=== PATIENT | female | born 1955 | race Caucasian/White ===

== ENCOUNTER 2023-08-24 07:42 | Outpatient (OUT) | payer MEDICARE, MEDICAID, SELFPAY ==
--- NOTE | 2023-08-24 | US_ITS ---
The [address] [address] Patient Name: EBONY CHOPRA MRN: [id number] date: 1955 Sex: F Assigned Patient Location: Current Patient Location: [place] Accession/Order Number: [id number] Exam Date: 08/24/2023 08:06 Report Date: 08/24/2023 09:43 At the request of: NON-STAFF PHYSICIAN Procedure: US renal BI EXAM: Renal ultrasound HISTORY: . Recurrent UTI N39.0 . COMPARISON: None. TECHNIQUE: Grayscale and color imaging was performed FINDINGS: Scanning of the right kidney demonstrates right kidney measured 12 x 6.2 x 4.6 cm. Color-flow is noted. No solid renal cortical masses or hydronephrosis is noted. Renal cortical echotexture is unremarkable. Left kidney measures 12 x 5.5 x 6.4 cm. Color-flow is noted. No solid renal cortical masses or hydronephrosis is noted. Renal cortical echotexture is unremarkable. There is a 1.1 x 0.7 cm cyst involving the left kidney. The bladder is grossly unremarkable. US/US renal BI IMPRESSION: 1. Normal right kidney. 2. 1.1 cm simple cyst involving the left kidney. Left kidney is otherwise unremarkable. 3. Normal-appearing bladder. Electronically authenticated by: PRATEEK KERR Date: 08/24/2023 09:43
--- NOTE | 2023-08-24 | XR_ITS ---
The [address] [address] Patient Name: EBONY CHOPRA MRN: [id number] date: 1955 Sex: F Assigned Patient Location: [place] Current Patient Location: [place] Accession/Order Number: [id number] Exam Date: 08/24/2023 08:07 Report Date: 08/24/2023 09:50 At the request of: NON-STAFF PHYSICIAN Procedure: XR abdomen 1V EXAMINATION: XR abdomen 1V HISTORY: recurrent UT N39.0 , chronic; painful urination COMPARISON: No relevant comparison available. FINDINGS: KIDNEY/URETER - RIGHT: No visible renal or ureteral calcifications. KIDNEY/URETER - LEFT: No visible renal or ureteral calcifications. PELVIS: No appreciable ureteral stones. BOWEL: No abnormal dilation or deviation. BONES: No acute abnormality. OTHER: Negative. No abnormal gaseous collections. XR/XR abdomen 1V IMPRESSION: 1. No appreciable urinary tract calculi. Electronically authenticated by: ARTURO LO Date: 08/24/2023 09:50
== END 2023-08-24 07:43 | disposition home or self-care (01) ==
LOC: US 07:49
PROVIDERS: PCP Family Medicine
DX: N39.0 Urinary tract infection, site not specified (principal); N28.1 Cyst of kidney, acquired
CPT/HCPCS: 74018; 76775

== ENCOUNTER 2023-10-23 18:02 | Outpatient (OUT) | payer MEDICARE, SELFPAY ==
--- NOTE | 2023-10-23 | XR_ITS ---
The [address] [address] Patient Name: EBONY CHOPRA MRN: [id number] date: 1955 Sex: F Assigned Patient Location: [facility] Current Patient Location: [facility] Accession/Order Number: [id number] Exam Date: 10/23/2023 18:15 Report Date: 10/23/2023 18:41 At the request of: VICENTE CARDENAS Procedure: XR chest 2V EXAM: XR chest 2V HISTORY: cough COMPARISON: None. TECHNIQUE: Upright PA and lateral chest x-ray FINDINGS: The heart is not enlarged and the vasculature is not distended. No acute infiltrate, effusion or pneumothorax is identified. The osseous structures are grossly intact. XR/XR chest 2V IMPRESSION: No acute infiltrate or evidence of cardiac decompensation. Comparison with a previous study may be helpful in confirming the chronicity of these findings. Electronically authenticated by: HARIS TURNER Date: 10/23/2023 18:41
== END 2023-10-23 18:03 | disposition home or self-care (01) ==
PROVIDERS: PCP Family Medicine; Visit Provider Family Medicine
DX: J06.9 Acute upper respiratory infection, unspecified (principal); E11.51 Type 2 diabetes mellitus with diabetic peripheral angiopathy without gangrene
CPT/HCPCS: 71046

== ENCOUNTER 2024-04-01 09:56 | Outpatient (OUT) | payer OTHER, SELFPAY ==
--- OUTSIDE RECORDS SUMMARY | 2024-04-01 10:13 | XMS_ITS | CCD ---
Author Organization [facility] Care Team Providers Care Physical Therapy Technician Name Role Phone PHYSICIAN, DEFAULT Unavailable Unavailable PHYSICIAN, DEFAULT Unavailable Unavailable PHYSICIAN, DEFAULT Unavailable Unavailable PHYSICIAN, DEFAULT Unavailable Unavailable KASSAVIN, JOHNNY Unavailable Unavailable KEI, ROBI ANNA Unavailable Unavailabl e JOHNNY BROOKS Unavailable Unavailable GARZA, JOSE CHING Unavailable Unavailable RYLEYWES Unavailable Unavailab le ROBI CHOUDHURY ANNA Unavailable Unavailgama GARZA, JOSE Alvarez Primary Care Physician [phone] GREG, DR JOSE Alvarez Admitting Unavailable GARZA, DR JOSE Alvarez Attending Unavailable GARZA, DR JOSE Alvarez Primary Care Unavailable GARZA, DR JOSE Alvarez Consulting Unavailable GARZA, DR JOSE Alvarez Admitting Unavailable GARZA, DR JOSE Alvarez Attending Unavailable GARZA, DR JOSE Alvarez Primary Care Unavailable GARZA, DR JOSE Alvarez Consulting Unavailable GARZA, DR JOSE Alvarez Admitting Unavailable GARZA, DR JOSE Alvarez Attending Unavailable GARZA, DR JOSE Alvarez Primary Care Unavailable GARZA, DR OJSE Alvarez Consulting Unavailable GARZA, DR JOSE Alvarez Admitting Unavailable GARZA, DR JOSE Alvarez Attending Unavailable GARZA, DR JOSE Alvarez Primary Care Unavailable GARZA, DR JOSE Alvarez Primary Care Unavailable HAY, DR HERNANDEZ Admitting Unavailable HAY, DR HERNANDEZ Attending Unavailable ZIEBER, DR ARTURO Navarro Consulting Unavailable HAY, DR HERNANDEZ Consulting Unavailable GARZA, DR JOSE Alvarez Admitting Unavailable GARZA, DR JOSE Alvarez Attending Unavailable GARZA, DR JOSE Alvarez Primary Care Unavailable GARZA, DR JOSE Alvarez Consulting Unavailable GREG, JOSE Alvarez Primary Care Physician [phone] Isra Gaxiola. Primary Care Physician PILI KERR Attending Unavailable KORI GOVEA Attending Unavailable Isra Gaxiola Attending Unavailable Isra Gaxiola Admitting Unavailable Isra Gaxiola Attending Unavailable Isra Gaxiola Admitting Unavailable Isra Gaxiola Attending Unavailable Isra Gaxiola Attending Unavailable Ross, Isra E. Attending Unavailable Ross, Isra E. Attending Unavailable Ross, Isra E. Attending Unavailable Soy, Sunni L Attending Unavailable Soy, Sunni L Admitting Unavailable Ross, Isra E. Attending Unavailable Ross, Isra E. Admitting Unavailable Soy, Sunni L Attending Unavailable Soy, Sunni L Attending Unavailable Ross, Isra E. Attending Unavailable Ross, Isra E. Attending Unavailable Ross, Isra E. Attending Unavailable Ross, Isra E. Attending Unavailable Ross, Sira E. Admitting Unavailable Ross, Isra E. Attending Unavailable Ross, Isra E. Attending Unavailable Ross, Isra E. Admitting Unavailable Ross, Isra E. Attending Unavailable Ross, Isra E. Attending Unavailable Ross, Isra E. Attending Unavailable Ross, Isra E. Attending Unavailable Ross, Isra E. Admitting Unavailable Ross, Isra E. Attending Unavailable Ross, Isra E. Referring Unavailable Troy, Henry D Referring Unavailable Troy, Henry D Attending Unavailable Soy, Sunni L Referring Unavailable Soy, Sunni L Attending Unavailable Soy, Sunni L Admitting Unavailable Troy, Henry D Referring Unavailable Troy, Henry D Attending Unavailable Troy, Henry D Admitting Unavailable Ross, Isra E. Attending Unavailable Ross, Isra E. Attending Unavailable Ross, Isra E. Attending Unavailable RAMIRO KWONG Attending Unavailable Elizabeth Duckworth. Attending Unavailable Minor, Isra E. Referring Unavailable JEFERSONKORI E Attending Unavailable JEFERSONKORI PHELPS E Attending Unavailable Allergies Allergy Classification Reported Allergen(s) Allergy Type Date of Onset Reaction(s) Facility (14 sources) levoFLOXacin; Translations: [levofloxacin] Drug Allergy Unknown (qualifier value) [facility] (15 sources) Penicillin; Translations: [penicillin] Drug Allergy Mycosis (disorder) [facility] (1 source) antibiotics; Translations: [antibiotics] Propensity to adverse reactions (disorder) [facility] Medications Current Medications Medication Drug Class(es) Dates Sig (Normalized) Sig (Original) 0.5 ML semaglutide 2 MG/ML Auto-Injector (2 sources) Start: 02-07-2023 inject 1 mg by subcutaneous injection every week semaglutide 1 mg/0.5 mL (1 mg dose) subcutaneous solution 1 mg, SubCutaneous, qWeek, # 12 EA, Refills(s) 0, [id number], cm, 02/07/23 14:39:00 EDT, Height/Length Dosing, 86.7, kg, 02/07/23 14:39:00 EDT, Weight Dosing Start Date: 02/07/23 Status: Ordered Start: 01-17-2023 inject 1 mg by subcu taneous injection every week semaglutide 1 mg/0.5 mL (1 mg dose) subcutaneous solution 1 mg, SubCutaneous, qWeek, # 12 EA, Refills(s) 0, Pharmacy: [facility]/pharmacy #[id number], 169, cm, 02/16/22 10:52:00 EDT, Height/Length Dosing, 89, kg, 02/16/22 10:52:00 EDT, Weight Dosing Start Date: 01/17/23 Status: Ordered 0.75 ML semaglutide 2.27 MG/ML Auto-Injector (2 sources) Start: 05-17-2023 inject 1.7 mg by subcutaneous injection every week semaglutide 1.7 mg/0.75 mL (1.7 mg dose) subcutaneous solution 1.7 mg, SubCutaneous, qWeek, # 12 EA, Refills(s) 0, Pharmacy: [facility], 169, cm, 05/17/23 11:58:00 EDT, Height/Length Dosing, 84, kg, 05/17/23 11:58:00 EDT, Weight Dosing Start Date: 05/17/23 Status: Ordered 3 ML semaglutide 1.34 MG/ML Pen Injector [Ozempic] (2 sources) Start: 05-08-2023 inject 1 mg by subcutaneous injection every week Ozempic (1 mg dose) 4 mg/3 mL subcutaneous solution 1 mg, SubCutaneous, qWeek, # 1 EA, Refills(s) 1, Pharmacy: [facility]/pharmacy #[id number], 169, cm, 04/24/23 11:22:00 EDT, Height/Length Dosing, 84.2, kg, 04/24/23 11:22:00 EDT, Weight Dosing Start Date: 05/08/23 Status: Ordered 3 ML semaglutide 2.68 MG/ML Pen Injector [Ozempic] (13 sources) Start: 11-29-2023 inject 2 mg by subcutaneous injection every week Ozempic 8 mg/3 mL (2 mg dose) subcutaneous solution 2 mg, SubCutaneous, qWeek, # 4 EA, Refills(s) 3, Pharmacy: [facility], 169, cm, 11/21/23 7:18:00 EST, Height/Length Dosing, 88.1, kg, 11/21/23 7:18:00 EST, Weight Dosing Start Date: 11/29/23 Status: Ordered Start: 11-27-2023 inject 2 mg by subcu taneous injection every week Ozempic 8 mg/3 mL (2 mg dose) subcutaneous solution 2 mg, SubCutaneous, qWeek, # 4 EA, Refills(s) 3, [id number], cm, 11/21/23 7:18:00 EST, Height/Length Dosing, 88.1, kg, 11/21/23 7:18:00 EST, Weight Dosing Start Date: 11/27/23 Status: Ordered Start: 09-26-2023 inject 2 mg by subcu taneous injection every week Ozempic 8 mg/3 mL (2 mg dose) subcutaneous solution 2 mg, SubCutaneous, qWeek, # 4 EA, Refills(s) 3, Pharmacy: [facility], 169, cm, 09/19/23 13:24:00 EST, Height/Length Dosing, 85.6, kg, 09/19/23 13:24:00 EST, Weight Dosing Start Date: 09/26/23 Status: Ordered Start: 09-19-2023 inject 2 mg by subcu taneous injection every week Ozempic 8 mg/3 mL (2 mg dose) subcutaneous solution 2 mg, SubCutaneous, qWeek, # 4 EA, Refills(s) 3, Pharmacy: [facility]/pharmacy #[id number], 169, cm, 09/19/23 13:24:00 EST, Height/Length Dosing, 85.6, kg, 09/19/23 13:24:00 EST, Weight Dosing Start Date: 09/19/23 Status: Ordered Start: 07-19-2023 inject 2 mg by subcu taneous injection every week Ozempic 8 mg/3 mL (2 mg dose) subcutaneous solution 2 mg, SubCutaneous, qWeek, # 4 EA, Refills(s) 3, Pharmacy: [facility]/pharmacy #[id number], 172, cm, 07/19/23 14:27:00 EDT, Height/Length Dosing, 84.1, kg, 07/19/23 14:27:00 EDT, Weight Dosing Start Date: 07/19/23 Status: Ordered Start: 06-12-2023 inject 1.5 mg by sub cutaneous injection every week Ozempic 8 mg/3 mL (2 mg dose) subcutaneous solution 1.5 mg, SubCutaneous, qWeek, # 12 EA, Refills(s) 0, Pharmacy: [facility]/pharmacy #[id number], 172, cm, 06/07/23 12:15:00 EDT, Height/Length Dosing, 83.7, kg, 06/07/23 12:15:00 EDT, Weight Dosing Start Date: 06/12/23 Status: Ordered aspirin 81 mg oral tablet (13 sources) Platelet Aggregation Inhibitor, Nonsteroidal Anti-inflammatory Drug Start: 11-10-2017 take 1 tablet by mouth once daily aspirin 81 mg oral tablet 81 mg = 1 tab(s), Oral, Daily, Refills(s) 0, Blood Thinner Start Date: 11/10/17 Status: Ordered atorvastatin 20 mg oral tablet (13 sources) HMG-CoA Reductase Inhibitor Start: 09-14-2023 take 1 tablet by mouth once daily atorvastatin 20 mg Tab See Instructions, TAKE 1 TABLET BY MOUTH DAILY, # 30 tab(s), Refills(s) 10, Pharmacy: [facility]), 169, cm, 08/22/23 11:17:00 EDT, Height/Length Dosing, 82, kg, 08/22/23 11:17:00 EDT, Weight Dosing Start Date: 09/14/23 Status: Ordered Start: 04-04-2023 take 1 tablet by fauzia th once daily atorvastatin 20 mg Tab 20 mg = 1 tab(s), Oral, Daily, # 90 tab(s), Refills(s) 1, Pharmacy: [facility], 169, cm, 03/20/23 12:01:00 EDT, Height/Length Dosing, 84.6, kg, 03/20/23 12:01:00 EDT, Weight Dosing Start Date: 04/04/23 Status: Ordered Start: 02-16-2022 take 1 mg by mouth once daily atorvastatin 20 mg Tab mg tab(s), Oral, Daily, Refills(s) 0 Start Date: 02/16/22 Status: Ordered azithromycin 250 mg Tab 5-day Dose Pack (Z-Brian) (1 source) Start: 10-23-2023 End: 10-28-2023 azithromycin 250 mg Tab 5-day Dose Pack (Z-Brian) = 1 packet(s), Oral, As Directed, as directed on package labeling, X 5 day(s), # 6 tab(s), Refills(s) 0, [id number] 169, cm, 10/23/23 17:17:00 EST, Height/Length Dosing, 88, kg, 10/23/23 17:17:00 EST, Weight Dosing Start Date: 10/23/23 Stop Date: 10/28/23 Status: Ordered benzonatate 200 mg oral capsule (1 source) Non-narcotic Antitussive Start: 10-23-2023 End: 10-30-2023 take 1 capsule by mouth three times daily benzonatate 200 mg oral capsule 200 mg = 1 cap(s), Oral, TID, X 7 day(s), # 21 cap(s), Refills(s) 0, [id number] 169, cm, 10/23/23 17:17:00 EST, Height/Length Dosing, 88, kg, 10/23/23 17:17:00 EST, Weight Dosing Start Date: 10/23/23 Stop Date: 10/30/23 Status: Ordered budesonide-formoter ol 160 mcg-4.5 mcg/inh Inh Aer w/adapter (4 sources) Start: 11-21-2023 budesonide-formote rol 160 mcg-4.5 mcg/inh Inh Aer w/adapter See Instructions, 10.2 EA, Refill(s) 0, INHALE 2 PUFFS BY MOUTH TWICE A DAY, [id number], 169, cm, 11/21/23 7:18:00 EST, Height/Length Dosing, 88.1, kg, 11/21/23 7:18:00 EST, Weight Dosing Start Date: 11/21/23 Status: Ordered 24 hr buPROPion hydrochloride 150 mg extended release oral tablet (3 sources) Aminoketone Start: 02-20-2024 take 1 tablet by mouth every twenty-four hours Wellbutrin XL 150 mg/24 hours Tab-ER 150 mg = 1 tab(s), Oral, q24hr, # 90 tab(s), Refills(s) 0, Pharmacy: [facility]/pharmacy #[id number], 169, cm, 02/20/24 8:04:00 EDT, Height/Length Dosing, 88.3, kg, 02/20/24 8:04:00 EDT, Weight Dosing Start Date: 02/20/24 Status: Ordered Calcium (13 sources) Phosphate Binder, Calcium Start: 08-09-2015 take 1 tablet by mouth twice daily Calcium 600+D 1 tab, Oral, BID, Refill(s) 0, Prophylaxis Start Date: 08/09/15 Status: Ordered cephalexin 500 mg oral capsule (1 source) Cephalosporin Antibacterial Start: 05-30-2023 take 1 capsule by mouth every twelve hours Keflex 500 mg Cap 500 mg = 1 cap(s), Oral, q12hr, # 10 cap(s), Refills(s) 0, Pharmacy: [facility]/pharmacy #[id number], 169, cm, 05/30/23 17:03:00 EDT, Height/Length Dosing, 94.8, kg, 05/30/23 17:03:00 EDT, Weight Dosing Start Date: 05/30/23 Status: Ordered cetirizine hydrochloride 10 mg oral tablet (8 sources) Histamine-1 Receptor Antagonist Start: 06-07-2023 take 1 tablet by mouth once daily cetirizine 10 mg Tab 10 mg = 1 tab(s), Oral, Daily, # 90 tab(s), Refills(s) 1, Pharmacy: [facility]/pharmacy #[id number], 172, cm, 06/07/23 12:15:00 EDT, Height/Length Dosing, 83.7, kg, 06/07/23 12:15:00 EDT, Weight Dosing Start Date: 06/07/23 Status: Ordered dapagliflozin 5 mg oral tablet (1 source) Sodium-Glucose Cotransporter 2 Inhibitor Start: 02-16-2022 take 1 mg by mouth once daily Farxiga 5 mg oral tablet mg tab(s), Oral, Daily, Refills(s) 0 Start Date: 02/16/22 Status: Ordered Dosoquin (10 sources) Start: 02-14-2019 take 1 tablet by mouth once daily Dosoquin 1 tab, Oral, Daily, Refill(s) 0, Prophylaxis Start Date: 02/14/19 Status: Ordered doxycycline hyclate 100 mg oral tablet (1 source) Tetracycline-class Drug Start: 02-20-2024 End: 02-27-2024 take 1 tablet by mouth every twelve hours doxycycline hyclate 100 mg Tab 100 mg = 1 tab(s), Oral, q12hr, X 7 day(s), # 14 tab(s), Refills(s) 0, Pharmacy: [facility]/pharmacy #[id number], 169, cm, 02/20/24 8:04:00 EDT, Height/Length Dosing, 88.3, kg, 02/20/24 8:04:00 EDT, Weight Dosing Start Date: 02/20/24 Stop Date: 02/27/24 Status: Ordered estradiol 0.1 mg/ml vaginal cream (2 sources) Estrogen Start: 08-22-2023 estradiol 0.1 mg/g Vag Crm 1 gm, Vaginal, As Directed, 42.5 gm, Refill(s) 5, Apply pea-sized amount vaginally at night for 3 weeks, then 3 times a week for maintenance., [facility]/pharmacy #[id number], 169, cm, 08/22/23 11:17:00 EDT, Height/Length Dosing, 82, kg, 08/22/23 11:17:00 EDT, Weight Dosing Start Date: 08/22/23 Status: Ordered fluconazole 150 mg oral tablet (10 sources) Azole Antifungal Start: 11-29-2023 take 1 tablet by mouth once Diflucan 150 mg Tab 150 mg = 1 tab(s), Oral, Once, # 1 tab(s), Refills(s) 1, Pharmacy: [facility]/pharmacy #[id number], 169, cm, 11/29/23 12:59:00 EST, Height/Length Dosing, 88.7, kg, 11/29/23 12:59:00 EST, Weight Dosing Start Date: 11/29/23 Status: Ordered Start: 06-26-2023 take 1 tablet by mouth once Di flucan 150 mg Tab 150 mg = 1 tab(s), Oral, Once, # 1 tab(s), Refills(s) 0, Pharmacy: [facility]/pharmacy #[id number], 172, cm, 06/26/23 18:02:00 EDT, Height/Length Dosing, 84.8, kg, 06/26/23 18:02:00 EDT, Weight Dosing Start Date: 06/26/23 Status: Ordered Start: 05-30-2023 take 1 tablet by mouth once fl uconazole 150 mg Tab See Instructions, TAKE 1 TABLET BY MOUTH FOR A 1 TIME DOSE, # 1 tab(s), Refills(s) 10, [id number] 169, cm, 05/30/23 17:03:00 EDT, Height/Length Dosing, 94.8, kg, 05/30/23 17:03:00 EDT, Weight Dosing Start Date: 05/30/23 Status: Ordered Start: 04-26-2023 take 1 tablet by mouth once fl uconazole 150 mg Tab See Instructions, TAKE 1 TABLET BY MOUTH FOR A 1 TIME DOSE, # 1 tab(s), Refills(s) 10, Pharmacy: [facility]), 169, cm, 04/24/23 11:22:00 EDT, Height/Length Dosing, 84.2, kg, 04/24/23 11:22:00 EDT, Weight Dosing Start Date: 04/26/23 Status: Ordered Freestyle Irma Flash Glucos e Monitoring 14 Day System (Sensor) (11 sources) Start: 12-27-2023 Freestyle Libr e Flash Glucose Monitoring 14 Day System (Sensor) Freestyle Irma Flash Glucose Monitoring 14 Day System (Sensor), See Instructions, 6 EA, 1, Freestyle Irma Flash Glucose Monitoring 14 Day System (Sensor). Replace sensor every 14 days., [facility]/pharmacy #[id number], Supply, 169, cm, 11/29/23 12:59:00 EST, Height/Length Dosing, 88.7, kg, 11/29/23 12:59:00 EST, Weight Dosing Start Date: 12/27/23 Status: Ordered Start: 03-06-2023 Freestyle Libr e Flash Glucose Monitoring 14 Day System (Sensor) Freestyle Irma Flash Glucose Monitoring 14 Day System (Sensor), See Instructions, 6 EA, 1, Freestyle Irma Flash Glucose Monitoring 14 Day System (Sensor). Replace sensor every 14 days., [facility]/pharmacy #[id number], Supply, 169, cm, 03/06/23 13:14:00 EDT, Height/Length Dosing, 85.8, kg, 03/06/23 13:14:00 EDT, Weight Dosing Start Date: 03/06/23 Status: Ordered Start: 03-06-2023 Freestyle Libr e Flash Glucose Monitoring 14 Day System (Sensor) Freestyle Irma Flash Glucose Monitoring 14 Day System (Sensor), See Instructions, 6 EA, 1, Freestyle Irma Flash Glucose Monitoring 14 Day System (Sensor). Replace sensor every 14 days., [facility]/pharmacy #[id number], Supply, 169, cm, 03/06/23 13:14:00 EDT, Hei... Start Date: 03/06/23 Status: Ordered glipiZIDE 10 mg oral tablet (12 sources) Sulfonylurea Start: 09-14-2023 take 1 tablet by mouth twice daily glipiZIDE 10 mg Tab See Instructions, TAKE 1 TABLET BY MOUTH TWICE DAILY, # 60 tab(s), Refills(s) 10, Pharmacy: [facility]), 169, cm, 08/22/23 11:17:00 EDT, Height/Length Dosing, 82, kg, 08/22/23 11:17:00 EDT, Weight Dosing Start Date: 09/14/23 Status: Ordered Start: 04-04-2023 take 1 tablet by fauzia th twice daily glipiZIDE 10 mg Tab 10 mg = 1 tab(s), Oral, BID, # 180 tab(s), Refills(s) 1, Pharmacy: [facility], 169, cm, 03/20/23 12:01:00 EDT, Height/Length Dosing, 84.6, kg, 03/20/23 12:01:00 EDT, Weight Dosing Start Date: 04/04/23 Status: Ordered Start: 02-07-2023 take 1 tablet by fauzia th twice daily glipiZIDE 10 mg Tab 10 mg = 1 tab(s), Oral, BID, # 180 tab(s), Refills(s) 0, Pharmacy: [facility]/pharmacy #[id number], 169, cm, 02/07/23 14:39:00 EDT, Height/Length Dosing, 86.7, kg, 02/07/23 14:39:00 EDT, Weight Dosing Start Date: 02/07/23 Status: Ordered Start: 01-17-2023 take 1 tablet by fauzia twice daily glipiZIDE 5 mg Tab 5 mg, Oral, BID, Refills(s) 0 Start Date: 01/17/23 Status: Ordered glyBURIDE 5 mg oral tablet (1 source) Sulfonylurea Start: 02-14-2019 take 5 mg by mouth once daily glyBURIDE 5 mg, Oral, Daily, Refills(s) 0, High blood sugar Start Date: 02/14/19 Status: Ordered 3 ml insulin degludec 100 unt/ml pen injector (4 sources) Insulin Analog Start: 11-21-2023 inject 30 [IU] by subcutaneous injection once daily Tresiba FlexTouch 100 units/mL subcutaneous solution 30 unit(s), SubCutaneous, Daily, # 15 mL, Refills(s) 2, [id number] 169, cm, 11/21/23 7:18:00 EST, Height/Length Dosing, 88.1, kg, 11/21/23 7:18:00 EST, Weight Dosing Start Date: 11/21/23 Status: Ordered lisinopril 5 mg oral tablet (4 sources) Angiotensin Converting Enzyme Inhibitor Start: 11-29-2023 lisinopril 5 mg Tab 0 Refill(s), Take 1 tablet every day by oral route for 90 days., Refills(s) 0 Start Date: 11/29/23 Status: Ordered metFORMIN hydrochloride 500 mg oral tablet (12 sources) Biguanide Start: 11-15-2023 take 2 tablets by mouth twice daily MetFORMIN (Eqv-Glucophage XR) 500 mg oral tablet, extended release See Instructions, TAKE 2 TABLETS BY MOUTH TWICE A DAY, # 360 tab(s), Refills(s) 2, Pharmacy: [id number], 169, cm, 10/30/23 13:51:00 EST, Height/Length Dosing, 88, kg, 10/23/23 17:17:00 EST, Weight Dosing Start Date: 11/15/23 Status: Ordered Start: 01-19-2023 take 2 tablets by mo [facility] twice daily Glucophage XR 500 mg Tab-ER 1,000 mg = 2 tab(s), Oral, BID, # 390 tab(s), Refills(s) 1, Pharmacy: [facility]/pharmacy #[id number], 169, cm, 02/16/22 10:52:00 EDT, Height/Length Dosing, 89, kg, 02/16/22 10:52:00 EDT, Weight Dosing Start Date: 01/19/23 Status: Ordered Start: 08-04-2013 take 1 tablet by fauzia th twice daily metformin 850 mg Tab 850 mg = 1 tab(s), Oral, BID, Refills(s) 0, Blood glucose Start Date: 08/04/13 Status: Ordered methenamine hippurate 1000 mg oral tablet (1 source) Start: 08-22-2023 End: 02-18-2024 take 1 tablet by mouth twice daily methenamine hippurate 1 g oral tablet 1 gm = 1 tab(s), Oral, BID, X 30 day(s), # 60 tab(s), Refills(s) 5, Pharmacy: [facility]/pharmacy #[id number], 169, cm, 08/22/23 11:17:00 EDT, Height/Length Dosing, 82, kg, 08/22/23 11:17:00 EDT, Weight Dosing Start Date: 08/22/23 Stop Date: 02/18/24 Status: Ordered telmisartan 40 mg oral tablet (13 sources) Angiotensin 2 Receptor Siri Start: 08-16-2023 take 0.5 tablet by mouth once daily telmisartan 40 mg Tab See Instructions, TAKE 1/2 TABLET BY MOUTH DAILY, # 15 tab(s), Refills(s) 10, Pharmacy: [facility] ([facility]), 172, cm, 07/19/23 14:27:00 EDT, Height/Length Dosing, 84.1, kg, 07/19/23 14:27:00 EDT, Weight Dosing Start Date: 08/16/23 Status: Ordered Start: 02-13-2023 take 1 tablet by fauzia once daily telmisartan 40 mg Tab See Instructions, Take one half tab po daily, # 45 tab(s), Refills(s) 1, [facility], cm, 02/07/23 14:39:00 EDT, Height/Length Dosing, 86.7, kg, 02/07/23 14:39:00 EDT, Weight Dosing Start Date: 02/13/23 Status: Ordered Start: 06-15-2018 take 1 tablet by fauzia th once daily telmisartan 20 mg oral tablet 20 mg = 1 tab(s), Oral, Daily, High blood pressure Start Date: 06/15/18 Status: Ordered Tresiba FlexTouch (1 source) Start: 10-23-2023 Tresiba FlexTo uch See Instructions, 25 units daily, Refills(s) 0 Start Date: 10/23/23 Status: Ordered Problems Active Problems Problem Classification Problem Date Documented Date Episodic/Chronic Administrative/social admission (1 source) Counseling procedure with explicit context; Translations: [Dietary counseling and surveillance] Episodic Diabetes mellitus with complications (19 sources) Disorder of nervous system due to diabetes mellitus; Translations: [Type 1 diabetes mellitus with unspecified complications] Onset: 08-19-2022 02-15-2022 Chronic Diabetes mellitus without complication (20 sources) Diabetes mellitus; Translations: [Type 2 diabetes mellitus without complications] Onset: 03-25-2022 06-15-2018 Chronic Comment on above: Linked per outpatien t CDI policy. Disorders of lipid metabolism (20 sources) Hypercholesterolemia; Translations: [Hyperlipidemia] Onset: 02-20-2024 02-15-2022 Chronic Essential hypertension (14 sources) Hypertensive disorder; Translations: [Essential (primary) hypertension] Onset: 03-25-2022 01-24-2014 Chronic Genitourinary symptoms and ill-defined conditions (14 sources) Dysuria; Translations: [Urinary symptoms ] Onset: 02-20-2024 04-24-2023 Episodic Occlusion or stenosis of precerebral arteries (1 source) Occlusion and stenosis of unspecified carotid artery; Translations: [Occlusion and stenosis of unspecified carotid artery] Onset: 09-20-2017 Chronic Osteoarthritis (4 sources) Unilateral primary osteoarthritis, right knee; Translations: [UNI PRIM OSTEOARTHRITIS RT KNEE] Onset: 04-22-2022 Chronic Other connective tissue disease (2 sources) Impingement syndrome of shoulder region 02-15-2022 Episodic Other connective tissue disease (1 source) Impingement syndrome of right shoulder region; Translations: [Impingement syndrome of right shoulder] Episodic Other connective tissue disease (1 source) Biceps tendinitis; Translations: [Bicipital tendinitis, right shoulder] Episodic Other connective tissue disease (1 source) Foot pain 03-12-2024 Episodic Other diseases of veins and lymphatics (13 sources) Venous insufficiency of leg 02-15-2022 Episodic Other endocrine disorders (10 sources) Disorder of adrenal gland; Translations: [Disorder of adrenal gland, unspecified] 02-15-2022 Chronic Other liver diseases (13 sources) Steatosis of liver 02-15-2022 Chronic Other nervous system disorders (1 source) Chronic pain; Translations: [Other chronic pain] Chronic Other nutritional; endocrine; and metabolic disorders (2 sources) Obese class I; Translations: [Body mass index (BMI) 33.0-33.9, adult] Onset: 05-30-2023 Chronic Other nutritional; endocrine; and metabolic disorders (2 sources) Obesity; Translations: [Other obesity due to excess calories] Onset: 05-30-2023 Chronic Other nutritional; endocrine; and metabolic disorders (4 sources) Body mass index 30+ - obesity 11-21-2023 Chronic Other upper respiratory infections (1 source) Acute upper respiratory infection 10-23-2023 Episodic Peripheral and visceral atherosclerosis (20 sources) Atherosclerosis of artery of lower limb; Translations: [Peripheral vascular disease] 02-15-2022 Chronic Prolapse of female genital organs (20 sources) Relaxation of vaginal outlet AND/OR pelvis; Translations: [Uterine prolapse] 11-10-2017 Chronic Residual codes; unclassified (3 sources) Sleep disorder 02-20-2024 Episodic Spondylosis; intervertebral disc disorders; other back problems (20 sources) Cervical radiculopathy; Translations: [Spinal stenosis of lumbar region] 02-15-2022 Episodic Sprains and strains (11 sources) Low back strain; Translations: [Unspecified sprain of right great toe, initial encounter] Onset: 03-25-2022 02-15-2022 Episodic Unclassified (3 sources) CONTACT W/AND (SUSP) EXPOS COVID-19; Translations: [CONTACT W/AND (SUSP) EXPOS COVID-19] Onset: 04-21-2022 Unclassified (7 sources) Pain of right shoulder region 07-19-2023 Urinary tract infections (16 sources) Urinary tract infectious disease; Translations: [Urinary tract infection, site not specified] Onset: 08-17-2022 02-15-2022 Episodic Past or Other Problems Problem Classification Problem Date Documented Date Episodic/Chronic E Codes: Fall (1 source) Unspecified fall, initial encounter; Translations: [UNSPECIFIED FALL INITIAL ENCOUNTER] Onset: 03-25-2022 Episodic Other aftercare (1 source) long-term (current) use of aspirin; Translations: [LONG-TERM CURRENT USE OF ASPIRIN] Onset: 03-25-2022 Episodic Other aftercare (1 source) Other longterm (current) drug therapy; Translations: [OTH MANAGER CORPORATE COMMUNICATIONS CURRENT DRUG THERAPY] Onset: 03-25-2022 Episodic Other aftercare (1 source) long-term (current) use of oral hypoglycemic drugs; Translations: [LONG-TERM USE ORAL HYPOGLYCEMIC DX] Onset: 03-25-2022 Episodic Other connective tissue disease (3 sources) Pain in right toe(s); Translations: [PAIN IN RIGHT TOES] Onset: 03-24-2022 Episodic Other injuries and conditions due to external causes (1 source) Unspecified injury of right foot, initial encounter; Translations: [UNSPECIFIED INJURY RT FOOT INITIAL] Onset: 05-06-2022 Episodic Other nervous system disorders (1 source) Unspecified abnormalities of gait and mobility; Translations: [UNS ABNORMALITIES GAIT AND MOBILITY] Onset: 05-06-2022 Episodic Residual codes; unclassified (1 source) Acquired absence of other specified parts of digestive tract; Translations: [ACQ ABSENCE OTH PART DIGESTV TRACT] Onset: 03-25-2022 Episodic Unclassified (1 source) CONTACT W/AND (SUSP) EXPOS COVID-19; Translations: [CONTACT W/AND (SUSP) EXPOS COVID-19] Onset: 04-18-2022 Results Test Name Value Interpretation Reference Range Facil ity Consultation Noteon 03-18-20 Consultation Note [id number] #1.00TIFF Normal [facility] Ambulatory Visit Summaryon 0 03-12-2024 Ambulatory Visit Summary KARLY CHOPRA :1955 Visit Date:03/12/2024 Ambulatory Visit Instructions Your Diagnosis BMI 31.0-31.9,adult Class 1 obesity due to excess calories in adult Former smoker Your Care Team Attending Physician - Isra Gaxiola MD Primary Care Physician - Isra Gaxiola MD This Is Your Medications List [facility] Prescription (Freestyle Irma Flash Glucose Monitoring 14 Day System (Sensor)) aspirin (aspirin 81 mg oral tablet) atorvastatin (atorvastatin 20 mg Tab) buPROPion (Wellbutrin XL 150 mg/24 hours Tab-ER) budesonide-formotero l (budesonide-formoter ol 160 mcg-4.5 mcg/inh Inh Aer w/adapter) calcium-vitamin D (Calcium 600+D) cetirizine (cetirizine 10 mg Tab) fluconazole (Diflucan 150 mg Tab) glipiZIDE (glipiZIDE 10 mg Tab) insulin degludec (Tresiba FlexTouch 100 units/mL subcutaneous solution) lisinopril (lisinopril 5 mg Tab) metformin (MetFORMIN (Eqv-Glucophage XR) 500 mg oral tablet, extended release) semaglutide (Ozempic 8 mg/3 mL (2 mg dose) subcutaneous solution) semaglutide (Ozempic 8 mg/3 mL (2 mg dose) subcutaneous solution) telmisartan (telmisartan 40 mg Tab) Procedures Performed Colonoscopy (11/13/2018), Anterior and posterior repair (06/29/2018), bladder uplift (06/2018), Angioplasty of artery (12/14/2015), bypass graft right leg, Cyst removal right hand, excision of tumor left leg, Hysterectomy, Laparoscopic cholecystectomy. Discharge Vitals Temperature (Oral) 36.5 ?C Heart Rate (Peripheral) 90 Respiratory Rate 18 Blood Pressure 132/80 Height 169 cm Height 67 in Weight 89.6 kg Weight 197.12 lb BMI 31.37 What to do next Scheduled Follow-Up Appointments Monday 8:45 AM EDT With: Minor THOMAS, Isra Wilkins Where: [facility] [place] Invalid Interpretation Code [address] [place] [address]- \.br\ Monday 11:00 AM EDT \.br\ With: KORI GOVEA PA-C\.br\ Where: [facility] Office/Clini c Noteon 03-12-2024 Family Medicine Office/Clinic Note HPI Staff Brandt is a 68 year old female presenting for acute visit Acute: discomfort right foot Pain characteristics: Pain location: right foot when she walks unbalanced feels like gel when she walks Intensity:no pain Onset: within the last week but been un balanced for 2 years Medication used: nothing History of Present Illness - See staff HPI. - Worsening Review of Systems PHQ Score Initial Depression Screen Score: 0 SCORE Physical Exam Vitals & Measurements T: 36.5 ?C(Oral) HR: 90(Peripheral) RR: 18 BP: 132/80 SpO2: 97% HT: 67 in HT: 169 cm WT: 89.6 kg WT: 197.12 lb BMI: 31.37 General: alert, no acute distress ENMT: oral mucosa moist, Cardiovascular: normal peripheral perfusion Respiratory: respirations non labored Extremities: no deformity, no trauma, Only slightly TTP of the lateral aspect of the R heel. No swelling, erythema noted. No bruising. Sensation is preserved. Neurological: oriented x 4, LOC appropriate for age, CN II-XII intact, motor strength equal & normal bilaterally, speech normal Assessment/Plan 1. Foot pain, right (M79.671: Pain in right foot) - Unsure the cause of this tenderness. - Foot looks normal. - Will send to podiatry - Possibly the start of Neuropathy? Or[place] [facility] [place] 2. BMI 31.0-31.9,adult (Z68.31: Body mass index [BMI] 31.0-31.9, adult) - BMI education give Ordered: Body Mass Index (BMI) documented 3008F Current tobacco non-user 1036F Depression Screening Negative 3352F [facility] [place] Ref[place] Influenza immunization administered or previously received 4274F Most recent diastolic blood pressure 80-89 mm Hg 3079F Spirometry test results demonstrate FEV/FVC > or = 70% or patient does not have COPD 3027F Systolic BP 130-139 mm Hg (Most Recent) 3075F 3. Class 1 obesity due to excess calories in adult (E66.09: Other obesity due to excess calories) - Diet and exercise advised Ordered: Body Mass Index (BMI) documented 3008F Current tobacco non-user 1036F Depression Screening Negative 3352F [facility] [place] Ref[place] Influenza immunization administered or previously received 4274F Most recent diastolic blood pressure 80-89 mm Hg 3079F Spirometry test results demonstrate FEV/FVC > or = 70% or patient does not have COPD 3027F Systolic BP 130-139 mm Hg (Most Recent) 3075F 4. Former smoker (Z87.891: Personal history of nicotine dependence) - Please continue not to smoke Ordered: Body Mass Index (BMI) documented 3008F Current tobacco non-user 1036F Depression Screening Negative 3352F [facility] [place]ulatory Ref[place] Influenza immunization administered or previously received 4274F Most recent diastolic blood pressure 80-89 mm Hg 3079F Spirometry test results demonstrate FEV/FVC > or = 70% or patient does not have COPD 3027F Systolic BP 130-139 mm Hg (Most Recent) 3075F Follow-up No qualifying data available Problem List/Past Medical History Ongoing Atherosclerosis of [place] arteries of extremities with intermittent claudication, right leg BMI 30.0-30.9,adult Cervical radiculopathy Diabetic retinopathy Foot pain, right Frequent UTI Hypercholesterolemia Neurologic disorder associated with diabetes mellitus Peripheral vascular disease Shoulder pain, right Sleep disorder Spinal stenosis of lumbar region Steatosis of liver Type 2 diabetes mellitus with hypercholesterolemia Type 2 diabetes mellitus with peripheral vascular disease Urinary frequency Venous insufficiency of leg Historical Hyperlipemia Hypertension Procedure/Surgical History Colonoscopy (11/13/2018), Anterior and posterior repair (06/29/2018), bladder uplift (06/2018), Angioplasty of artery (12/14/2015), bypass graft right leg, Cyst removal right hand, excision of tumor left leg, Hysterectomy, Laparoscopic cholecystectomy. Medications aspirin 81 mg oral tablet, 81 mg= 1 tab(s), Oral, Daily atorvastatin 20 mg Tab, See Instructions budesonide-formotero l 160 mcg-4.5 mcg/inh Inh Aer w/adapter, See Instructions Calcium 600+D, 1 tab, Oral, BID, Not taking cetirizine 10 mg Tab, 10 mg= 1 tab(s), Oral, Daily, 1 refills Diflucan 150 mg Tab, 150 mg= 1 tab(s), Oral, Once, 1 refills Freestyle Irma Flash Glucose Monitoring 14 Day System (Sensor), See Instructions, 1 refills glipiZIDE 10 mg Tab, See Instructions lisinopril 5 mg Tab MetFORMIN (Eqv-Glucophage XR) 500 mg oral tablet, extended release, See Instructions Ozempic 8 mg/3 mL (2 mg dose) subcutaneous solution, 2 mg, SubCutaneous, qWeek, 3 refills Ozempic 8 mg/3 mL (2 mg dose) subcutaneous solution, 2 mg, SubCutaneous, qWeek, 3 refills telmisartan 40 mg Tab, See Instructions Tresiba FlexTouch 100 units/mL subcutaneous solution, 30 unit(s), SubCutaneous, Daily, 2 refills Wellbutrin XL 150 mg/24 hours Tab-ER, 150 mg= 1 tab(s), Oral, q24hr Allergies Levaquin (Unknown) penicillin (Yeast infection) Social History Alcohol (more content not included)... Normal [facility] Comment on above: Result Comment: Elec tronically Signed By: Minor THOMAS, Isra Montemayor.br\Date and Time Signed: 03/12/24 11:46 EDT Physician Referralon 024 Physician Referral [id number] 1#1.00TIFF [facility] Screenson 02-29-2024 Screens [id number] 1#1.00TIFF [facility] Patient Educationon 02-28-20 Patient Education Caregiving Antibiotic Medicine, Adult Antibiotic medicines are used to treat infections caused by bacteria, such as strep throat and urinary tract infection (UTI). Antibiotic medicines will not work for colds, the flu (influenza), or other illnesses caused by viruses. These medicines work by killing the bacteria that are making you sick. Antibiotics can also have serious side effects. It is important that you take antibiotic medicines safely and only when needed. When do I need to take antibiotics? You may need antibiotics for: ? UTI. ? Strep throat. ? Bacterial sinusitis. ? Meningitis. This infection affects the spinal cord and brain. ? Serious lung infection. You may start antibiotics while your health care provider waits for your results from any tests for possible infection. Tests may include a culture of your throat, urine, blood, or mucus. Your health care provider may change or stop your antibiotic depending on your test results. When are antibiotics not needed? You do not need antibiotics for most common illnesses. These illnesses may be caused by a virus, not by bacteria. You do not need antibiotics for: ? The common cold. ? Influenza. ? Sore throat. ? Discolored mucus. ? Bronchitis. Antibiotics are not always needed for all infections caused by bacteria. Many of these infections clear up without antibiotic treatment. Do not ask for or take antibiotics when they are not necessary. How long should I take my antibiotic? You must take the entire prescription. Continue to take your antibiotic for as long as told by your health care provider. Do not stop taking it even if you start to feel better. If you stop taking it too soon: ? You may start to feel sick again. ? Your infection may become harder to treat. Each course of antibiotics needs a different amount of time to work. Some antibiotic courses last only a few days. Some last about a week to 10 days. In some cases, you may need to take antibiotics for a few weeks to completely treat your infection. What if I miss a dose? Try not to miss any doses of medicine. If you miss a dose, call your health care provider or pharmacist for advice. Sometimes it is okay to take the missed dose as soon as possible. Do not take double or extra doses. What are the risks of taking antibiotics? Antibiotics can cause: ? Allergic reactions. ? Nausea. ? Yeast infections. ? Liver problems. Antibiotics can also cause an infection called Clostridioides difficile (C. difficile or C. diff), which causes severe diarrhea. This infection happens when the antibiotics kill the healthy bacteria in your intestines. This allows C. diff to grow. C. diff needs to be treated right away. Let your health care provider know if: ? You develop diarrhea while taking an antibiotic. ? You develop diarrhea after you stop taking an antibiotic. C. diff infection can start weeks after stopping the antibiotic. Taking an antibiotic also puts you at risk for getting sick in the future with bacteria that do not respond to medicine (antibiotic-resistan t infection). Antibiotics can cause bacteria to change so that if the antibiotic is taken again, the medicine cannot kill the bacteria. These infections can be more serious and, in some cases, life-threatening. Do antibiotics affect control? control pills may not work while you are on antibiotics. If you are taking control pills, continue taking them as usual and use a second form of control, such as a condom, to avoid unwanted . Continue using the second form of control until your health care provider says you can stop. What else should I know about taking antibiotics? It is important for you to take antibiotics exactly as told. Make sure to: ? Take the correct amount of medicine at the same time each day. ? Ask your health care provider: ? How long to wait between doses. ? If your antibiotic should be taken with food. ? If there are any foods, drinks, or medicines that you should avoid while taking your antibiotics. ? If there are any side effects you should be aware of. ? Use only the antibiotics prescribed for you by your health care provider. Do not use antibiotics prescribed for someone else. ? Drink a large glass of water when taking your antibiotics. Drink enough fluid to keep your urine pale yellow. ? Ask your pharmacist for a syringe, cup, or spoon that properly measures your antibiotics. ? Throw away any leftover medicine. Follow these instructions at home: ? Take gduj-qfe-rvgvont and prescription medicines as told by your health care provider. ? Return to your normal activities as told by your health care provider. Ask your health care provider what activities are safe for you. ? Keep all follow-up visits as told by your health care provider. This is important. Contact a health care provider if: ? Your symptoms get worse. (more content not included)... Normal [facility] Urology Office/Clinic Noteon 02-28-2024 Urology Office/Clinic Note Chief Complaint 6 mo f/u w/ KUB and DAVE HPI Staff 6m DX: Recurrent UTI & Frequency *Started on Estrogen Cream & Methenamine 1g BID at time of last encounter. NEG DAVE & KUB 08/24/23 Did see endo 08/2023 Last A1C 10/23/23- 9.2% Did see PCP 02/20/24. c/o burning w/urination. C&S 02/20/24 final report >100,000 cfu/ml Escherichia coli Tx'd with Doxy Dysuria: denies Incomplete bladder emptying: denies Hematuria: denies Frequency: denies Urgency: denies Nocturia: 3x a night Stream: steady Leaking: denies Post void dripping: denies Wearing pads/ Depends: denies Urge incontinence: denies Stress incontinence: denies Incontinence without Sensory Awareness: denies Abdominal pain: denies Flank pain: denies Sexual complaints: _ Review of Systems PHQ Score Initial Depression Screen Score: 0 SCORE no fever, chills, malaise, myalgia. no rash/lesions. no chest pain, palpitations, or SOB. no abdominal pain, nausea, vomiting. no unilateral calf swelling, redness, pain Physical Exam Vitals & Measurements T: 36.7 ?C(Temporal Artery) HR: 82(Peripheral) RR: 16 BP: 136/77 HT: 67 in HT: 169 cm WT: 88.5 kg WT: 194.7 lb BMI: 30.99 General: nontoxic, NAD Mouth: moist mucosa Lungs: normal respiratory effort Cardio: regular rate, good distal perfusion Abdomen: nondistended, no suprapubic distention or tenderness, no CVA tenderness Neurologic: Grossly normal Skin: No rashes or suspicious lesions Assessment/Plan 1. Frequent UTI (N39.0: Urinary tract infection, site not specified) 08/22/23: Pt was on Farxiga at time of last encounter in our office, is no longer taking (as recommended) is now taking Ozempic. Was doing well fall/winter 2021. Then things got bad Spring 2022: saw PCP 03/20 +nitr/leuk -- tx w macrobid x 7d, fluconazole x1 04/24 neg nit/leuk -- tx fluc x 1 05/17 neg 05/25 no UA -- tx fluc x 1 05/30 cx + E Coli -- keflex x 5d 06/26 +nitr/leuk -- macrobid x 7d, fluc x1 A1C 01/17/23- 13.3% A1C 04/24/23- 12.3% A1C 08/02/23- 12.2% Has been referred to endo due to elevated A1C. we discussed connection btwn diabetes and UTIs. improved DM control will definitely help w UTIs and vice versa. PVR at prior OV was 0mL. pt feels like she's emptying fully. we did discuss double void maneuvers to be sure. reiterated importance of OTC UTI preventives. pt to start probiotics, d-mannose, cranberry supplement. start pt on estrogen cream. Reasoning, side effects, risks/benefits discussed. Rx sent to pharmacy. start Methenamine 1g BID. KUB/DAVE neg for stones. TODAY: A1c Nov 04 - 9.2 Saw PCP 02/20/24 for UTI sx, IO UA+, started empiric Doxy and sent for cx which shows 100k E Coli (sensitive). feeling better now. pt states she has had several UTIs since last ov. has been treated by PCP for them, too embarrassed to call here for tx. pt admits she has NOT been taking OTC preventives (says she lost the sheet I gave her last time and was too embarrassed to ask for another one). has NOT been using estrogen cream (says she doesn't remember to use it and doesn't like applying it). has NOT been taking methenamine (filled it and tried a few but says it's a big tablet that gets stuck in her throat). pH today is 5.0 we had an extensive discussion about how UTIs can become more risky/dangerous as you get older and that prevention is chan. we talked about the 3 prevention options. pt is willing to get back on the methenamine. I looked it up and it can be crushed so she will do this. I also reiterated that I need to know about the UTIs. -resume methenamine -call here for UTI sx 2. Urinary frequency (R35.0: Frequency of micturition) 08/22/23: BBSQ 17 but considers bladder control good if sx continue to be bothersome despite lifestyle changes, getting UTIs under control, and getting DM under control then we can consider anticholinergic if pt deems sx bothersome enough to warrant tx TODAY: BBSQ 13 poor control but pt states sx aren't bothersome enough to warrant any tx changes at this time. I also reminded her how important DM control is for both UTI prevention and bladder sx!! Follow-up With When Contact Information KORI GOVEA PA-C, URL Within 6 months [address] [place] [address] [facility] (1) Additional Instructions: Patient Education Antibiotic Medicine, Adult Problem List/Past Medical History Ongoing Atherosclerosis of [place] arteries of extremities with intermittent claudication, right leg BMI 30.0-30.9,adult Cervical radiculopathy Diabetic retinopathy Frequent UTI Hypercholesterolemia Neurologic disorder associated with diabetes mellitus Peripheral vascular disease Shoulder pain, right Sleep disorder Spinal stenosis of lumbar region Steatosis of liver Type 2 diabetes mellitus with hypercholesterolemia Type 2 diabetes mellitus with peripheral vascular disease Urinary frequency Venous insufficiency of leg Historical Hyperlipemi (more content not included)... Normal [facility] Comment on above: Result Comment: Elec tronically Signed By: KORI GOVEA PA-C\.br\Date and Time Signed: 02/28/24 13:04 EDT Ambulatory Visit Summaryon 0 02-27-2024 Ambulatory Visit Summary KARLY CHOPRA :1955 Visit Date:02/27/2024 Ambulatory Visit Instructions Your Diagnosis Frequent UTI Urinary frequency Your Care Team Attending Physician - KORI GOVEA PA-C Primary Care Physician - Isra Gaxiola MD This Is Your Medications List [facility] Prescription (OnShiftyle Irma Flash Glucose Monitoring 14 Day System (Sensor)) aspirin (aspirin 81 mg oral tablet) atorvastatin (atorvastatin 20 mg Tab) buPROPion (Wellbutrin XL 150 mg/24 hours Tab-ER) budesonide-formotero l (budesonide-formoter ol 160 mcg-4.5 mcg/inh Inh Aer w/adapter) calcium-vitamin D (Calcium 600+D) cetirizine (cetirizine 10 mg Tab) fluconazole (Diflucan 150 mg Tab) glipiZIDE (glipiZIDE 10 mg Tab) insulin degludec (Tresiba FlexTouch 100 units/mL subcutaneous solution) lisinopril (lisinopril 5 mg Tab) metformin (MetFORMIN (Eqv-Glucophage XR) 500 mg oral tablet, extended release) semaglutide (Ozempic 8 mg/3 mL (2 mg dose) subcutaneous solution) semaglutide (Ozempic 8 mg/3 mL (2 mg dose) subcutaneous solution) telmisartan (telmisartan 40 mg Tab) Procedures Performed Colonoscopy (11/13/2018), Anterior and posterior repair (06/29/2018), bladder uplift (06/2018), Angioplasty of artery (12/14/2015), bypass graft right leg, Cyst removal right hand, excision of tumor left leg, Hysterectomy, Laparoscopic cholecystectomy. Discharge Vitals Temperature (Temporal Artery) 36.7 ?C Heart Rate (Peripheral) 82 Respiratory Rate 16 Blood Pressure 136/77 Height 169 cm Height 67 in Weight 88.5 kg Weight 194.7 lb BMI 30.99 What to do next Scheduled Follow-Up Appointments Monday 1:00 PM EDT With: Isra Gaxiola MD Where: [facility] [place] Normal [address] [place] [address]- \.br\ Medications\.br\ What How Much When Why Instructions\.br\ Unchanged aspirin (aspirin 81 mg oral tablet) 1 Tablets By Mouth Every day\.br\ Unchanged atorvastatin (atorvastatin 20 mg Tab) See instructions TAKE 1 TABLET BY MOUTH DAILY \.br\ Unchanged budesonide-formoterol (budesonide-formotero l 160 mcg-4.5 mcg/ inh Inh Aer w/ adapter) See instructions INHALE 2 PUFFS BY MOUTH TWICE A DAY \.br\ Unchanged buPROPion (Wellbutrin XL 150 mg/ 24 hours Tab-ER) 1 Tablets By Mouth Every 24 hours Type 2 diabetes mellitus with hypercholesterolemia Type 2 diabetes mellitus with peripheral vascular disease Hypercholesterolemia BMI 30.0-30.9,adult Class 1 obesity due to excess calories in adult Former smoker\.br\ Unchanged calcium-vitamin D (Calcium 600+D) 1 tab By Mouth 2 times a day\.br\ Unchanged cetirizine (cetirizine 10 mg Tab) 1 Tablets By Mouth Every day\.br\ Unchanged fluconazole (Diflucan 150 mg Tab) 1 Tablets By Mouth Once UTI symptoms Type 2 diabetes mellitus with complication BMI 28.0-28.9,adult Over weight\.br\ Unchanged glipiZIDE (glipiZIDE 10 mg Tab) See instructions TAKE 1 TABLET BY MOUTH TWICE DAILY \.br\ Unchanged insulin degludec (Tresiba FlexTouch 100 units/ mL subcutaneous solution) 30 Units Subcutaneous Every day\.br\ Unchanged lisinopril (lisinopril 5 mg Tab) 0 Refill(s), Take 1 tablet every day by oral route for 90 days. \.br\ Unchanged metformin (MetFORMIN (Eqv-Glucophage XR) 500 mg oral tablet, extended release) See instructions TAKE 2 TABLETS BY MOUTH TWICE A DAY \.br\ Unchanged Misc Prescription (Freestyle Irma Flash Glucose Monitoring 14 Day System (Sensor)) See instructions Type 2 diabetes mellitus without complication, without long-term current use of insulin Hypercholesterolemia Chronic fatigue Neurologic disorder associated with diabetes mellitus Peripheral vascular disease Atherosclerosis of [place] arteries of extremities with intermittent claudication, right leg Former smoker BMI 31.0-31.9,adult Freestyle Irma Flash Glucose Monitoring 14 Day System (Sensor). Replace sensor every 14 days. \.br\ Unchanged semaglutide (Ozempic 8 mg/ 3 mL (2 mg dose) subcutaneous solution) 2 Milligram Subcutaneous Every week\.br\ Unchanged semaglutide (Ozempic 8 mg/ 3 mL (2 mg dose) subcutaneous solution) 2 Milligram Subcutaneous Every week\.br\ Unchanged telmisartan (telmisartan 40 mg Tab) See instructions TAKE 1/ 2 TABLET BY MOUTH DAILY \.br\ Allergies\.br\ Levaquin (Unknown)\.br\ penicillin (Yeast infection)\.br\ Problems\.br\ Ongoing - Any problem that you are currently receiving treatment for.\.br\ Atherosclerosis of [place] arteries of extremities with intermittent claudication, right leg\.br\ BMI 30.0-30.9,adult\.br\ Cervical radiculopathy\.br\ Diabetic retinopathy\.br\ Frequent UTI\.br\ Hypercholesterolemia\ .br\ Neurologic disorder associated with diabetes mellitus\.br\ Peripheral vascular disease\.br\ Shoulder pain, right\.br\ Sleep disorder\.br\ Spinal stenosis of lumbar region\.br\ Steatosis of liver\.br\ Type 2 diabetes mellitus with hypercholesterolemia\ .br\ Type 2 diabetes mellitus with peripheral vascular disease\.br\ Urinary frequency\.br\ Venous insufficiency of leg\.br\ Historical - Any problem that you are no longer receiving treatment for.\.br\ Hyperlipemia\.br\ Hypertension\.br\ Patient Survey\.br\ You may receive a survey via text or e-mail asking about your office visit. Please share your experience with us by completing your survey. We appreciate your feedback and thank you for choosing us for your care.\.br\ \.br\ [facility] C Urineon 02-22-2024 Bacteria identified Cx Nom (U) Microbiology PROCEDURE: Urine Culture [R1] SOURCE: U CleanCatch BODY SITE: COLLECTED DATE/TIME: 02/20/2024 08:18 EDT RECEIVED DATE/TIME: 02/20/2024 20:17 EDT START DATE/TIME: 02/20/2024 20:17 EDT FREE TEXT SOURCE: Minor THOMAS, Isra Gaxiola MD, Isra Wilkins FINAL REPORTS Final Report [] Verified Date/Time: 02/22/2024 10:11 EDT >100,000 cfu/ml Escherichia coli SUSCEPTIBILITY RESULTS LEGEND: S=Susceptible, N/R=Not Reported, Blank=Data not available, or drug not advisable or tested, I=Intermediate, ESBL=Extended spectrum beta-lactamase, R=Resistant, TFG=Thymidine-depend ent strain, AMANDO=Beta-lactamase positive, LINNETTE=mcg/m;(mg/L), S*=Predicted susceptible interp, R*=Predicted resistant interp EC Antibiotic LINNETTE Dilutn LINNETTE Interp Amikacin <=16 S Ampicillin <=8 S Ampicillin/ <=8/4 S Sulbactam Aztreonam <=4 S Cefazolin <=2 S Cefepime <=2 S Cefoxitin <=8 S Ceftazidime <=1 S Ceftazidime/ <=8 S Avibactam Ceftriaxone <=1 S Ciprofloxacin <=1 S Ertapenem <=0.5 S Gentamicin <=4 S Levofloxacin <=2 S Meropenem <=1 S Nitrofurantoin <=32 S Piperacillin/ <=16 S Tazobactam Tetracycline <=4 S Tigecycline <=2 S Tobramycin <=4 S Trimethoprim/ <=2/38 S Sulfa Performing Locations R1: This test was performed at: [facility], [address] [place] [address], [id number] , [place], [facility] Comment on above: Performed By: #### [id number] #### [facility] [address] [place] [id number] Insurance Correspondenceon 0 02-22-2024 Insurance Correspondence [id number] [facility] Interdisciplinary Note - Soc ial Workeron 02-21-2024 Interdisciplinary Note - Wool Buyer This SW made a tc to patient today to discuss her positive depression screen. She reports that she feels Dr. Gaxiola has addressed the issues she has been having, that are the reason for her depressive feelings. She is hopeful that once the medication kicks in that things will be a lot better. She denied any needs at this time. SW will remain available. [facility] Ambulatory Visit Summaryon 0 02-20-2024 Ambulatory Visit Summary KARLY CHOPRA :1955 Visit Date:02/20/2024 Ambulatory Visit Instructions Your Diagnosis Type 2 diabetes mellitus with hypercholesterolemia Type 2 diabetes mellitus with peripheral vascular disease Hypercholesterolemia , Pure hypercholesterolemia , unspecified BMI 30.0-30.9,adult Class 1 obesity due to excess calories in adult Former smoker Your Care Team Attending Physician - Isra Gaxiola MD Primary Care Physician - Isra Gaxiola MD This Is Your Medications List [facility] Prescription (InsideTrackstyle Irma Flash Glucose Monitoring 14 Day System (Sensor)) aspirin (aspirin 81 mg oral tablet) atorvastatin (atorvastatin 20 mg Tab) budesonide-formotero l (budesonide-formoter ol 160 mcg-4.5 mcg/inh Inh Aer w/adapter) calcium-vitamin D (Calcium 600+D) cetirizine (cetirizine 10 mg Tab) fluconazole (Diflucan 150 mg Tab) glipiZIDE (glipiZIDE 10 mg Tab) insulin degludec (Tresiba FlexTouch 100 units/mL subcutaneous solution) lisinopril (lisinopril 5 mg Tab) metformin (MetFORMIN (Eqv-Glucophage XR) 500 mg oral tablet, extended release) semaglutide (Ozempic 8 mg/3 mL (2 mg dose) subcutaneous solution) semaglutide (Ozempic 8 mg/3 mL (2 mg dose) subcutaneous solution) telmisartan (telmisartan 40 mg Tab) Procedures Performed Colonoscopy (11/13/2018), Anterior and posterior repair (06/29/2018), bladder uplift (06/2018), Angioplasty of artery (12/14/2015), bypass graft right leg, Cyst removal right hand, excision of tumor left leg, Hysterectomy, Laparoscopic cholecystectomy. Discharge Vitals Temperature (Temporal Artery) 36.4 ?C Heart Rate (Peripheral) 90 Respiratory Rate 16 Blood Pressure 126/78 Height 169 cm Height 67 in Weight 88.3 kg Weight 194.26 lb BMI 30.92 What to do next Scheduled Follow-Up Appointments Monday 9:00 AM EDT With: KORI GOVEA PA-C Where: [facility] Invalid Interpretation Code [address] [place] [address]- \.br\ Monday 11:00 AM EDT \.br\ With:\.br\ Where: [facility] Family Medicine [facility] Family Medicine Office/Clini c Noteon 02-20-2024 Family Medicine Office/Clinic Note HPI Staff Karly is a 68 year old female presenting for 3 month follow up DM, cholesterol Do you have any of the following symptoms? Foot Exam: UTD Eye Exam: UTD Last A1C: Hgb A1C %: 9.2 % High (10/23/23 17:36:00) Hgb A1c POC: 7.1 % (10/23/23 17:29:00) Statin: atorvastatin 20 Patient is here for follow up on hyperlipidemia: Do you have side effects from the medication? no Refill needed?: no Yearly Lipid labs: 08/17/23 Acute thinks she has a UTI, odorous and itchy questions/concerns: can't lose weight and she's depressed phq-[id number] History of Present Illness Pt presents for follow up, however pt is having burning on urination. Patient states her blood sugars have been extremely elevated recently. Patient states that she forgets to take her medicine. Patient is not using any adjuvant memory solution such as alarms. continues to tell her that she needs to take her medicine on a regular basis. Patient's blood sugar this morning was 185. Patient is also very frustrated that she cannot lose weight. Patient is already on Ozempic and still struggling. Patient states that she has no energy. Patient states she wants to sleep most of the day. Patient states that she cannot sleep at night because her mind races. Patient states she is unsure if she snores. Review of Systems PHQ Score Initial Depression Screen Score: 5 SCORE Detailed Depression Screen Score: 12 Total Depression Screen Score: 17 Physical Exam Vitals & Measurements T: 36.4 ?C(Temporal Artery) HR: 90(Peripheral) RR: 16 BP: 126/78 SpO2: 98% HT: 67 in HT: 169 cm WT: 88.3 kg WT: 194.26 lb BMI: 30.92 General: alert, no acute distress ENMT: oral mucosa moist, Cardiovascular: normal peripheral perfusion Respiratory: respirations non labored Extremities: no deformity, no trauma Neurological: oriented x 4, LOC appropriate for age, CN II-XII intact, motor strength equal & normal bilaterally, speech normal Assessment/Plan 1. UTI symptoms (R39.9: Unspecified symptoms and signs involving the genitourinary system) UA is positive. Will treat with Doxy. Will send for culture. 2. Sleep disorder (G47.9: Sleep disorder, unspecified) Will order sleep study. Will also try Wellbutrin to see if this helps with the racing thoughts. Ordered: Sleep Study Baseline 3. Type 2 diabetes mellitus with hypercholesterolemia (E11.69: Type 2 diabetes mellitus with other specified complication) Will have the patient start setting an alarm to take her medication. If patient is still struggling with elevated blood sugars we will adjust meds at that time. Follow-up in 2 weeks. Ordered: buPROPion, 150 mg = 1 tab(s), Oral, q24hr, # 90 tab(s), Refills(s) 0, Pharmacy: [facility]/pharmacy #[id number], 169, cm, 02/20/24 8:04:00 EDT, Height/Length Dosing, 88.3, kg, 02/20/24 8:04:00 EDT, Weight Dosing doxycycline, 100 mg = 1 tab(s), Oral, q12hr, X 7 day(s), # 14 tab(s), Refills(s) 0, [id number], cm, 02/20/24 8:04:00 EDT, Height/Length Dosing, 88.3, kg, 02/20/24 8:04:00 EDT, Weight Dosing Body Mass Index (BMI) documented 3008F Current tobacco non-user 1036F Depression Screening Positive 3354F Influenza immunization administered or previously received 4274F Most recent diastolic blood pressure <80 mm Hg 3078F Patient screen for fall risk: no falls in last year or 1 fall with no injury in last year 1101F Systolic BP <130 mm Hg (Most Recent) 3074F Urine Culture Urnls Dip Stick Auto w/o Microscopy POC 58531 4. Type 2 diabetes mellitus with peripheral vascular disease (E11.51: Type 2 diabetes mellitus with diabetic peripheral angiopathy without gangrene) As above. Ordered: buPROPion, 150 mg = 1 tab(s), Oral, q24hr, # 90 tab(s), Refills(s) 0, [id number] 169, cm, 02/20/24 8:04:00 EDT, Height/Length Dosing, 88.3, kg, 02/20/24 8:04:00 EDT, Weight Dosing doxycycline, 100 mg = 1 tab(s), Oral, q12hr, X 7 day(s), # 14 tab(s), Refills(s) 0, [id number] 169, cm, 02/20/24 8:04:00 EDT, Height/Length Dosing, 88.3, kg, 02/20/24 8:04:00 EDT, Weight Dosing Body Mass Index (BMI) documented 3008F Current tobacco non-user 1036F Depression Screening Positive 3354F Influenza immunization administered or previously received 4274F Most recent diastolic blood pressure <80 mm Hg 3078F Patient screen for fall risk: no falls in last year or 1 fall with no injury in last year 1101F Systolic BP <130 mm Hg (Most Recent) 3074F Urine Culture Urnls Dip Stick Auto w/o Microscopy POC 77728 5. Hypercholesterolemia (E78.00: Pure hypercholesterolemia , unspecified) Continue on statin. Ordered: buPROPion, 150 mg = 1 tab(s), Oral, q24hr, # 90 tab(s), Refills(s) 0, Pharmacy: [facility]/pharmacy #[id number], 169, cm, 02/20/24 8:04:00 EDT, Height/Length Dosing, 88.3, kg, 02/20/24 8:04:00 EDT, Weight Dosing doxycycline, 100 mg = 1 tab(s), Oral, q12hr, X 7 day(s), # 14 tab(s), Refills(s) 0, Pharmacy: [facility]/pharmacy #[id number], 169, cm, 02/20/24 8:04:00 EDT, Hei (more content not included)... Normal [facility] Comment on above: Result Comment: Elec tronically Signed By: Isra Gaxiola MD\.br\Date and Time Signed: 02/20/24 08:34 EDT Ambulatory Visit Summaryon 0 11-29-2023 Ambulatory Visit Summary KARLY CHOPRA :1955 Visit Date:11/29/2023 Ambulatory Visit Instructions Your Diagnosis Frontal sinusitis Nasal congestion BMI 30.0-30.9,adult BMI 28.0-28.9,adult Over weight Type 2 diabetes mellitus with complication UTI symptoms Your Care Team Attending Physician - RAMIOR KWONG CNP Primary Care Physician - Isra Gaxiola MD This Is Your Medications List doxycycline (doxycycline hyclate 100 mg Cap) fluconazole (Diflucan 150 mg Tab) Contact prescribing physician if questions or concerns Misc Prescription (OnShiftyle Irma Flash Glucose Monitoring 14 Day System (Sensor)) aspirin (aspirin 81 mg oral tablet) atorvastatin (atorvastatin 20 mg Tab) budesonide-formotero l (budesonide-formoter ol 160 mcg-4.5 mcg/inh Inh Aer w/adapter) calcium-vitamin D (Calcium 600+D) cetirizine (cetirizine 10 mg Tab) glipiZIDE (glipiZIDE 10 mg Tab) insulin degludec (Tresiba FlexTouch 100 units/mL subcutaneous solution) lisinopril (lisinopril 5 mg Tab) metformin (MetFORMIN (Eqv-Glucophage XR) 500 mg oral tablet, extended release) multivitamin (Dosoquin) semaglutide (Ozempic 8 mg/3 mL (2 mg dose) subcutaneous solution) semaglutide (Ozempic 8 mg/3 mL (2 mg dose) subcutaneous solution) telmisartan (telmisartan 40 mg Tab) Procedures Performed Colonoscopy (11/13/2018), Anterior and posterior repair (06/29/2018), bladder uplift (06/2018), Angioplasty of artery (12/14/2015), bypass graft right leg, Cyst removal right hand, excision of tumor left leg, Hysterectomy, Laparoscopic cholecystectomy. Discharge Vitals Temperature (Temporal Artery) 37.0 ?C Heart Rate (Peripheral) 89 Blood Pressure 140/78 Height 169 cm Height 67 in Weight 88.7 kg Weight 195.14 lb BMI 31.06 What to do next Scheduled Follow-Up Appointments Monday 8:00 AM EDT With: Minor THOMAS, Isra Wilkins Where: [facility] Invalid Interpretation Code [address] [place] [address] [place] [address]- \.br\ Monday 11:00 AM EDT \.br\ With:\.br\ Where: [facility] Medicine Office/Clini c Noteon 11-29-2023 Family Medicine Office/Clinic Note Chief Complaint congestion and cough HPI Staff Dr. Gaxiola patient presents for an acute visit. complaints of chest congestion and cough Onset: Characteristics: fever, dry cough, congestion, ear plugged, chills, and tired. OTC tried: [id number] Covid test:negative I have reviewed and verified the staff HPI to be accurate for this encounter. History of Present Illness 68 year old female patient of Dr. Gaxiola presents today for evaluation of cough and chest congestion starting 7 days ago. Patient reports she has had a fever, chills, cough and her ears have been plugged . She states last PM and this AM she had a headache which she took Tylenol around 2 AM. She is afebrile today in the office at 37. Her blood pressure is slightly elevated at 140/78. She reports she has frequent sinus infections and she had one last month and she was treated with azithromycin. She states she is not sure it cleared 100% at that time. Review of Systems Constitutional: no fever, no chills, no sweats, no weakness Skin: no Jaundice, no rash, no lesions, nopetechiae ENMT: mild ear pain, no sore throat, moderate congestion, no hoarseness Respiratory: no shortness of breath, mild cough, no orthopnea, no wheezing Cardiovascular: no chest pain, no palpitations, no edema Neurologic: no headache, no dizziness, no numbness, no weakness Psychiatric: no sleeping problems, no irritability, no mood swings/depression. Additional ROS info: Except as noted in the above Review of Systems and in the History of Present Illness all other systems have been reviewed and are negative or noncontributory. Physical Exam Vitals & Measurements T: 37.0 ?C(Temporal Artery) HR: 89(Peripheral) BP: 140/78 SpO2: 95% HT: 67 in HT: 169 cm WT: 88.7 kg WT: 195.14 lb BMI: 31.06 General: alert, no acute distress ENMT: TM's clear, oral mucosa moist, yes pharyngeal erythema or exudate; frontal sinus tenderness to palpation. Cardiovascular: regular rate and rhythm, normal peripheral perfusion Respiratory: Lungs CTA, respirations non labored Extremities: no deformity, no trauma Neurological: oriented x 4, LOC appropriate for [facility] normal Assessment/Plan 1. Frontal sinusitis (J32.1: Chronic frontal sinusitis) Encouraged patient to increase fluids Continue to use flonase one spray each nostril daily Discussed nasal sinus rinse- patient declines Start doxycycline 100 mg BID x 14 days f/u as needed Ordered: doxycycline, 100 mg = 1 cap(s), Oral, BID, X 14 day(s), # 28 cap(s), Refills(s) 0, Pharmacy: [facility]/pharmacy #[id number], 169, cm, 11/29/23 12:59:00 EST, Height/Length Dosing, 88.7, kg, 11/29/23 12:59:00 EST, Weight Dosing 2. Nasal congestion (R09.81: Nasal congestion) Encouraged patient to increase fluids Continue to use flonase one spray each nostril daily Discussed nasal sinus rinse- patient declines Start doxycycline 100 mg BID x 14 days f/u as needed Ordered: doxycycline, 100 mg = 1 cap(s), Oral, BID, X 14 day(s), # 28 cap(s), Refills(s) 0, [id number] 169, cm, 11/29/23 12:59:00 EST, Height/Length Dosing, 88.7, kg, 11/29/23 12:59:00 EST, Weight Dosing Rapid COVID POC 73777 3. BMI 30.0-30.9,adult (Z68.30: Body mass index [BMI] 30.0-30.9, adult) Monitor weight at each visit BMI 31.05 Encouraged portion control and daily exercise Over weight (E66.3: Overweight) Ordered: fluconazole, 150 mg = 1 tab(s), Oral, Once, # 1 tab(s), Refills(s) 1, [id number] 169, cm, 11/29/23 12:59:00 EST, Height/Length Dosing, 88.7, kg, 11/29/23 12:59:00 EST, Weight Dosing Type 2 diabetes mellitus with complication (E11.8: Type 2 diabetes mellitus with unspecified complications) Continue glipizide 10 mg BID, Tresiba 30 Units daily, metFORMIN XR 500 mg daily, & Ozempic 2 mg SubCutaneous weekly Ordered: fluconazole, 150 mg = 1 tab(s), Oral, Once, # 1 tab(s), Refills(s) 1, [id number] 169, cm, 11/29/23 12:59:00 EST, Height/Length Dosing, 88.7, kg, 11/29/23 12:59:00 EST, Weight Dosing Follow-up No qualifying data available Patient Education Sinus Infection, Adult, Qqea-iq-Kxmc Problem List/Past Medical History Ongoing Atherosclerosis of [place] arteries of extremities with intermittent claudication, right leg BMI 30.0-30.9,adult Cervical radiculopathy Diabetic retinopathy Hypercholesterolemia Neurologic disorder associated with diabetes mellitus Peripheral vascular disease Shoulder pain, right Spinal stenosis of lumbar region Steatosis of liver Type 2 diabetes mellitus with hypercholesterolemia Type 2 diabetes mellitus with peripheral vascular disease Venous insufficiency of leg Historical Hyperlipemia Hypertension Procedure/Surgical History Colonoscopy (11/13/2018), Anterior and posterior repair (06/29/2018), bladder uplift (06/2018), Angioplasty of artery (12/14/2015), bypass graft right leg, Cyst removal right hand, excision of tumor left leg, Hysterectomy, Laparoscopic ilana (more content not included)... Normal [facility] Comment on above: Result Comment: Elec tronically Signed By: RAMIRO KWONG CNP\Date and Time Signed: 11/29/23 13:52 EST Patient Educationon 11-29-19 Patient Education Infectious Disease Sinus Infection, Adult A sinus infection is soreness and swelling (inflammation) of your sinuses. Sinuses are hollow spaces in the bones around your face. They are located: ? Around your eyes. ? In the middle of your forehead. ? Behind your nose. ? In your cheekbones. Your sinuses and nasal passages are lined with a fluid called mucus. Mucus drains out of your sinuses. Swelling can trap mucus in your sinuses. This lets germs (bacteria, virus, or fungus) grow, which leads to infection. Most of the time, this condition is caused by a virus. What are the causes? ? Allergies. ? Asthma. ? Germs. ? Things that block your nose or sinuses. ? Growths in the nose (nasal polyps). ? Chemicals or irritants in the air. ? A fungus. This is rare. What increases the risk? ? Having a weak body defense system (immune system). ? Doing a lot of swimming or diving. ? Using nasal sprays too much. ? Smoking. What are the signs or symptoms? The main symptoms of this condition are pain and a feeling of pressure around the sinuses. Other symptoms include: ? Stuffy nose (congestion). This may make it hard to breathe through your nose. ? Runny nose (drainage). ? Soreness, swelling, and warmth in the sinuses. ? A cough that may get worse at night. ? Being unable to smell and taste. ? Mucus that collects in the throat or the back of the nose (postnasal drip). This may cause a sore throat or bad breath. ? Being very tired (fatigued). ? A fever. How is this diagnosed? ? Your symptoms. ? Your medical history. ? A physical exam. ? Tests to find out if your condition is short-term (acute) or long-term (chronic). Your doctor may: ? Check your nose for growths (polyps). ? Check your sinuses using a tool that has a light on one end (endoscope). ? Check for allergies or germs. ? Do imaging tests, such as an MRI or CT scan. How is this treated? Treatment for this condition depends on the cause and whether it is short-term or long-term. ? If caused by a virus, your symptoms should go away on their own within 10 days. You may be given medicines to relieve symptoms. They include: ? Medicines that shrink swollen tissue in the nose. ? A spray that treats swelling of the nostrils. ? Rinses that help get rid of thick mucus in your nose (nasal saline washes). ? Medicines that treat allergies (antihistamines). ? Ngcl-rpa-gpeaqrz pain relievers. ? If caused by bacteria, your doctor may wait to see if you will get better without treatment. You may be given antibiotic medicine if you have: ? A very bad infection. ? A weak body defense system. ? If caused by growths in the nose, surgery may be needed. Follow these instructions at home: Medicines ? Take, use, or apply zmen-ets-bumtnxh and prescription medicines only as told by your doctor. These may include nasal sprays. ? If you were prescribed an antibiotic medicine, take it as told by your doctor. Do not stop taking it even if you start to feel better. Hydrate and humidify ? Drink enough water to keep your pee (urine) pale yellow. ? Use a cool mist humidifier to keep the humidity level in your home above 50%. ? Breathe in steam for 10?15 minutes, 3?4 times a day, or as told by your doctor. You can do this in the bathroom while a hot shower is running. ? Try not to spend time in cool or dry air. Rest ? Rest as much as you can. ? Sleep with your head raised (elevated). ? Make sure you get enough sleep each night. General instructions ? Put a warm, moist washcloth on your face 3?4 times a day, or as often as told by your doctor. ? Use nasal saline washes as often as told by your doctor. ? Wash your hands often with soap and water. If you cannot use soap and water, use hand quill picking machine operator. ? Do not smoke. Avoid being around people who are smoking (secondhand smoke). ? Keep all follow-up visits. Contact a doctor if: ? You have a fever. ? Your symptoms get worse. ? Your symptoms do not get better within 10 days. Get help right away if: ? You have a very bad headache. ? You cannot stop vomiting. ? You have very bad pain or swelling around your face or eyes. ? You have trouble seeing. ? You feel confused. ? Your neck is stiff. ? You have trouble breathing. These symptoms may be an emergency. Get help right away. Call 911. ? Do not wait to see if the symptoms will go away. ? Do not drive yourself to the hospital. Summary ? A sinus infection is swelling of your sinuses. Sinuses are hollow spaces in the bones around your face. ? This condition is caused by tissues in your nose that become inflamed or swollen. This traps germs. These can lead to infection. ? If you were prescribed an antibiotic medicine, take it as told by your doctor. Do not stop taking it even if you start to feel better. ? Keep all follow-up visits (more content not included)... Normal [facility] Ambulatory Visit Summaryon 0 11-21-2023 Ambulatory Visit Summary KEYSHAKARLY Gabriela :1955 Visit Date:11/21/2023 Ambulatory Visit Instructions Your Diagnosis Type 2 diabetes mellitus with hypercholesterolemia Type 2 diabetes mellitus with peripheral vascular disease Pure hypercholesterolemia , unspecified Disorder of adrenal gland Shoulder pain, right Immunization due BMI 30.0-30.9,adult Your Care Team Attending Physician - Isra Gaxiola MD Primary Care Physician - Isra Gaxiola MD This Is Your Medications List insulin degludec (Tresiba FlexTouch 100 units/mL subcutaneous solution) Contact prescribing physician if questions or concerns Misc Prescription (InsideTrackstyle Irma Flash Glucose Monitoring 14 Day System (Sensor)) aspirin (aspirin 81 mg oral tablet) atorvastatin (atorvastatin 20 mg Tab) budesonide-formotero l (Symbicort 160/4.5 inhalation aerosol with adapter) calcium-vitamin D (Calcium 600+D) cetirizine (cetirizine 10 mg Tab) fluconazole (Diflucan 150 mg Tab) glipiZIDE (glipiZIDE 10 mg Tab) metformin (MetFORMIN (Eqv-Glucophage XR) 500 mg oral tablet, extended release) multivitamin (Dosoquin) semaglutide (Ozempic 8 mg/3 mL (2 mg dose) subcutaneous solution) telmisartan (telmisartan 40 mg Tab) [Image Removed: STOP]Stop taking these medications semaglutide (Ozempic 8 mg/3 mL (2 mg dose) subcutaneous solution) Procedures Performed Colonoscopy (11/13/2018), Anterior and posterior repair (06/29/2018), bladder uplift (06/2018), Angioplasty of artery (12/14/2015), bypass graft right leg, Cyst removal right hand, excision of tumor left leg, Hysterectomy, Laparoscopic cholecystectomy. Discharge Vitals Temperature (Oral) 36.7 ?C Heart Rate (Peripheral) 84 Respiratory Rate 16 Blood Pressure 134/76 Height 169 cm Height 67 in Weight 88.1 kg Weight 193.82 lb BMI 30.85 What to do next Scheduled Follow-Up Appointments Monday 8:00 AM EDT With: Minor THOMAS, Isra Wilkins Where: [facility] Invalid Interpretation Code [address] [place] [address]- \.br\ Monday 11:00 AM EDT \.br\ With:\.br\ Where: [facility] Consent for Flu Vaccineon Consent for Flu Vaccine [id number]# 1.00TIFF Normal [facility] Medicine Office/Clini c Noteon 11-21-2023 Family Medicine Office/Clinic Note HPI Staff Karly is a 68 year old female presenting for 2 month follow up DM Do you have any of the following symptoms? Foot Exam: UTD Eye Exam: UTD Hgb A1C %: 9.2 % High (10/23/23 17:36:00) Hgb A1c POC: 7.1 % (10/23/23 17:29:00) Statin: atorvastatin 20 flu: wants one today questions/concerns: questions what her A1C will need to be to get her shoulder surgery done History of Present Illness - Pt is wondering how low her A1c should be for surgery. - Seeing Endo tomorrow - BS is 150 this morning - Wants surgery with her shoulder. Review of Systems PHQ Score Initial Depression Screen Score: 0 SCORE Physical Exam Vitals & Measurements T: 36.7 ?C(Oral) HR: 84(Peripheral) RR: 16 BP: 134/76 SpO2: 98% HT: 67 in HT: 169 cm WT: 88.1 kg WT: 193.82 lb BMI: 30.85 General: alert, no acute distress ENMT: oral mucosa moist, Cardiovascular: regular rate and rhythm, normal peripheral perfusion Respiratory: Lungs CTA, respirations non labored Extremities: no deformity, no trauma Neurological: oriented x 4, LOC appropriate for age, CN II-XII intact, motor strength equal & normal bilaterally, speech normal Abdomen: Soft, Nontender, Non-distended, + BS Assessment/Plan 1. Type 2 diabetes mellitus with hypercholesterolemia (E11.69: Type 2 diabetes mellitus with other specified complication) - Will increase Tresiba to 30 units daily. - Monitor food intake - Will follow recommendations with Endo - Please let us know what they change you to 2. Type 2 diabetes mellitus with peripheral vascular disease (E11.51: Type 2 diabetes mellitus with diabetic peripheral angiopathy without gangrene) - As above 3. Pure hypercholesterolemia , unspecified (E78.00: Pure hypercholesterolemia , unspecified) - Continue on Lipitor - Follow up in 3 months 4. Disorder of adrenal gland (E27.9: Disorder of adrenal gland, unspecified) - Pt does not know what this is in referrence to - Will remove 5. Shoulder pain, right (M25.511: Pain in right shoulder) - Pt to follow up with Ortho. 6. Immunization due (Z23: Encounter for immunization) - Flu shot given Ordered: influenza virus vaccine, inactivated, 0.5 mL, Injection, IntraMuscular, Once, Stop date 11/21/23 8:00:00 EST, Routine, Start date 11/21/23 8:00:00 EST FIRST VACCINE w/o Proration Clerk Admin Charge [id number] 7. BMI 30.0-30.9,adult (Z68.30: Body mass index [BMI] 30.0-30.9, adult) BMI education given Orders: insulin degludec, 30 unit(s), SubCutaneous, Daily, # 15 mL, Refills(s) 2, Pharmacy: [facility]/pharmacy #[id number], 169, cm, 11/21/23 7:18:00 EST, Height/Length Dosing, 88.1, kg, 11/21/23 7:18:00 EST, Weight Dosing Follow-up No qualifying data available Patient Education BMI for Adults Problem List/Past Medical History Ongoing Atherosclerosis of [place] arteries of extremities with intermittent claudication, right leg BMI 30.0-30.9,adult Cervical radiculopathy Diabetic retinopathy Hypercholesterolemia Neurologic disorder associated with diabetes mellitus Peripheral vascular disease Shoulder pain, right Spinal stenosis of lumbar region Steatosis of liver Type 2 diabetes mellitus with hypercholesterolemia Type 2 diabetes mellitus with peripheral vascular disease Venous insufficiency of leg Historical Hyperlipemia Hypertension Procedure/Surgical History Colonoscopy (11/13/2018), Anterior and posterior repair (06/29/2018), bladder uplift (06/2018), Angioplasty of artery (12/14/2015), bypass graft right leg, Cyst removal right hand, excision of tumor left leg, Hysterectomy, Laparoscopic cholecystectomy. Medications aspirin 81 mg oral tablet, 81 mg= 1 tab(s), Oral, Daily atorvastatin 20 mg Tab, See Instructions Calcium 600+D, 1 tab, Oral, BID cetirizine 10 mg Tab, 10 mg= 1 tab(s), Oral, Daily, 1 refills Diflucan 150 mg Tab, 150 mg= 1 tab(s), Oral, Once Dosoquin, 1 tab, Oral, Daily Freestyle Irma Flash Glucose Monitoring 14 Day System (Sensor), See Instructions, 1 refills glipiZIDE 10 mg Tab, See Instructions MetFORMIN (Eqv-Glucophage XR) 500 mg oral tablet, extended release, See Instructions Ozempic 8 mg/3 mL (2 mg dose) subcutaneous solution, 2 mg, SubCutaneous, qWeek, 3 refills Symbicort 160/4.5 inhalation aerosol with adapter, 2 puff(s), Inhalation, BID, Self Directed telmisartan 40 mg Tab, See Instructions Tresiba FlexTouch 100 units/mL subcutaneous solution, 30 unit(s), SubCutaneous, Daily, 2 refills Allergies Levaquin (Unknown) penicillin (Yeast infection) Social History Alcohol - Denies Alcohol Use, 08/04/2013 Household alcohol concerns: No., 05/17/2023 Substance Abuse - Denies Substance Abuse, 08/04/2013 Tobacco - Denies Tobacco Use, 06/15/2018 Former smoker, quit more than 30 days ago Tobacco Use:. Never Smokeless Tobacco Use:. Cigarettes, Started age 16.0 Years. Stopped age 63 Years. Household tobacco concerns: No. Yes, 11/21/2023 Family History Congenital heart disease: Mother and Father. Diabetes melli (more content not included)... Normal [facility] Comment on above: Result Comment: Elec tronically Signed By: Minor THOMAS, Isra Montemayor.br\Date and Time Signed: 11/21/23 07:45 EST Patient Educationon 11-21-19 Patient Education Nutrition BMI for Adults What is BMI? Body mass index (BMI) is a number that is calculated from a person's weight and height. BMI can help estimate how much of a person's weight is composed of fat. BMI does not measure body fat directly. Rather, it is an alternative to procedures that directly measure body fat, which can be difficult and expensive. BMI can help identify people who may be at higher risk for certain medical problems. What are BMI measurements used for? BMI is used as a screening tool to identify possible weight problems. It helps determine whether a person is obese, overweight, a healthy weight, or underweight. BMI is useful for: ? Identifying a weight problem that may be related to a medical condition or may increase the risk for medical problems. ? Promoting changes, such as changes in diet and exercise, to help reach a healthy weight. BMI screening can be repeated to see if these changes are working. How is BMI calculated? BMI involves measuring your weight in relation to your height. Both height and weight are measured, and the BMI is calculated from those numbers. This can be done either in [place] or metric measurements. Note that charts and online BMI calculators are available to help you find your BMI quickly and easily without having to do these calculations yourself. To calculate your BMI in [place] measurements: 1. Measure your weight in pounds (lb). 2. Multiply the number of pounds by 703. ? For example, for a person who weighs 180 lb, multiply that number by 703, which equals 126,540. 3. Measure your height in inches. Then multiply that number by itself to get a measurement called inches squared. ? For example, for a person who is 70 inches tall, the inches squared measurement is 70 inches x 70 inches, which equals 4,900 inches squared. 4. Divide the total from step 2 (number of lb x 703) by the total from step 3 (inches squared): 126,540 ? 4,900 = 25.8. This is your BMI. To calculate your BMI in metric measurements: 1. Measure your weight in kilograms (kg). 2. Measure your height in meters (m). Then multiply that number by itself to get a measurement called meters squared. ? For example, for a person who is 1.75 m tall, the meters squared measurement is 1.75 m x 1.75 m, which is equal to 3.1 meters squared. 3. Divide the number of kilograms (your weight) by the meters squared number. In this example: 70 ? 3.1 = 22.6. This is your BMI. What do the results mean? BMI charts are used to identify whether you are underweight, normal weight, overweight, or obese. The following guidelines will be used: ? Underweight: BMI less than 18.5. ? Normal weight: BMI between 18.5 and 24.9. ? Overweight: BMI between 25 and 29.9. ? Obese: BMI of 30 or above. Keep these notes in mind: ? Weight includes both fat and muscle, so someone with a muscular build, such as an athlete, may have a BMI that is higher than 24.9. In cases like these, BMI is not an accurate measure of body fat. ? To determine if excess body fat is the cause of a BMI of 25 or higher, further assessments may need to be done by a health care provider. ? BMI is usually interpreted in the same way for men and women. Where to find more information For more information about BMI, including tools to quickly calculate your BMI, go to these websites: ? Centers for Disease Control and Prevention: www.cdc.gov ? [place] Heart Association: www.heart.org ? National Heart, Lung, and Blood [place]: www.nhlbi.nih.gov Summary ? Body mass index (BMI) is a number that is calculated from a person's weight and height. ? BMI may help estimate how much of a person's weight is composed of fat. BMI can help identify those who may be at higher risk for certain medical problems. ? BMI can be measured using [place] measurements or metric measurements. ? BMI charts are used to identify whether you are underweight, normal weight, overweight, or obese. This information is not intended to replace advice given to you by your health care provider. Make sure you discuss any questions you have with your health care provider. Document Revised: 07/22/2020 Document Reviewed: 05/29/2020 [email or web address] Patient Education ? 2022 [employer]. [facility] RAD - MISCon 10-31-2023 [place] - [facility] [place] [id number] #1.00TIFF [facility] Ambulatory Visit Summaryon 1 12-31-2022 Ambulatory Visit Summary KEYSHAKARLY Gabriela :1955 Visit Date:10/30/2023 Ambulatory Visit Instructions Your Diagnosis Acute URI Your Care Team Attending Physician - Isra Gaxiola MD Primary Care Physician - Isra Gaxiola MD This Is Your Medications List [facility] Prescription (Appifier Irma Flash Glucose Monitoring 14 Day System (Sensor)) aspirin (aspirin 81 mg oral tablet) atorvastatin (atorvastatin 20 mg Tab) benzonatate (benzonatate 200 mg oral capsule) calcium-vitamin D (Calcium 600+D) cetirizine (cetirizine 10 mg Tab) estradiol topical (estradiol 0.1 mg/g Vag Crm) fluconazole (Diflucan 150 mg Tab) glipiZIDE (glipiZIDE 10 mg Tab) insulin degludec (Tresiba FlexTouch) metformin (Glucophage XR 500 mg Tab-ER) multivitamin (Dosoquin) semaglutide (Ozempic 8 mg/3 mL (2 mg dose) subcutaneous solution) semaglutide (Ozempic 8 mg/3 mL (2 mg dose) subcutaneous solution) telmisartan (telmisartan 40 mg Tab) Procedures Performed Colonoscopy (11/13/2018), Anterior and posterior repair (06/29/2018), bladder uplift (06/2018), Angioplasty of artery (12/14/2015), bypass graft right leg, Cyst removal right hand, excision of tumor left leg, Hysterectomy, Laparoscopic cholecystectomy. Discharge Vitals Heart Rate (Peripheral) 81 Blood Pressure 132/78 Height 169 cm Height 67 in What to do next Scheduled Follow-Up Appointments Monday 7:15 AM EST With: Minor THOMAS, Isra Wilkins Where: [facility] Invalid Interpretation Code [address] [place] [address] [place] [address]- \.br\ Monday 11:00 AM EDT \.br\ With:\.br\ Where: [facility] Office/Clini c Noteon 10-30-2023 [facility] Office/Clinic Note HPI Staff Karly is a 68 year old female presenting for a one week follow up IAN rxed zpak, tessalon and chest xray ordered states feeling somewhat better History of Present Illness - Reviewed CXR - Pt still has cough - Improved - Now is sick Physical Exam Vitals & Measurements HR: 81(Peripheral) BP: 132/78 SpO2: 96% HT: 67 in HT: 169 cm General: alert, no acute distress ENMT: oral mucosa moist, Cardiovascular: regular rate and rhythm, normal peripheral perfusion Respiratory: Lungs CTA, respirations non labored Extremities: no deformity, no trauma Neurological: oriented x 4, LOC appropriate for age, CN II-XII intact, motor strength equal & normal bilaterally, speech normal Abdomen: Soft, Nontender, Non-distended, + BS Assessment/Plan 1. Acute URI (J06.9: Acute upper respiratory infection, unspecified) - Will do Symbicort since I do not want to do steroids - Follow up PRN 2. Cough (R05.9: Cough, unspecified) - As above Orders: budesonide-formotero l, 2 puff(s), Inhalation, BID, 1 EA, Refill(s) 0, [id number], 169, cm, 10/30/23 13:51:00 EST, Height/Length Dosing, 88, kg, 10/23/23 17:17:00 EST, Weight Dosing Follow-up No qualifying data available Problem List/Past Medical History Ongoing Acute URI Atherosclerosis of [place] arteries of extremities with intermittent claudication, right leg Cervical radiculopathy Cough Diabetic retinopathy Disorder of adrenal gland Dysuria Hypercholesterolemia Lumbar strain Neurologic disorder associated with diabetes mellitus Peripheral vascular disease Recurrent UTI Shoulder pain, right Spinal stenosis of lumbar region Steatosis of liver Type 2 diabetes mellitus with hypercholesterolemia Type 2 diabetes mellitus with peripheral vascular disease Urinary frequency Venous insufficiency of leg Historical Hyperlipemia Hypertension Procedure/Surgical History Colonoscopy (11/13/2018), Anterior and posterior repair (06/29/2018), bladder uplift (06/2018), Angioplasty of artery (12/14/2015), bypass graft right leg, Cyst removal right hand, excision of tumor left leg, Hysterectomy, Laparoscopic cholecystectomy. Medications aspirin 81 mg oral tablet, 81 mg= 1 tab(s), Oral, Daily atorvastatin 20 mg Tab, See Instructions benzonatate 200 mg oral capsule, 200 mg= 1 cap(s), Oral, TID Calcium 600+D, 1 tab, Oral, BID cetirizine 10 mg Tab, 10 mg= 1 tab(s), Oral, Daily, 1 refills Diflucan 150 mg Tab, 150 mg= 1 tab(s), Oral, Once Dosoquin, 1 tab, Oral, Daily Freestyle Irma Flash Glucose Monitoring 14 Day System (Sensor), See Instructions, 1 refills glipiZIDE 10 mg Tab, See Instructions Glucophage XR 500 mg Tab-ER, 1000 mg= 2 tab(s), Oral, BID, 1 refills Ozempic 8 mg/3 mL (2 mg dose) subcutaneous solution, 2 mg, SubCutaneous, qWeek, 3 refills Ozempic 8 mg/3 mL (2 mg dose) subcutaneous solution, 2 mg, SubCutaneous, qWeek, 3 refills Symbicort 160/4.5 inhalation aerosol with adapter, 2 puff(s), Inhalation, BID telmisartan 40 mg Tab, See Instructions Tresiba FlexTouch, See Instructions Allergies Levaquin (Unknown) penicillin (Yeast infection) Social History Alcohol - Denies Alcohol Use, 08/04/2013 Household alcohol concerns: No., 05/17/2023 Substance Abuse - Denies Substance Abuse, 08/04/2013 Tobacco - Denies Tobacco Use, 06/15/2018 Former smoker, quit more than 30 days ago Tobacco Use:. Never Smokeless Tobacco Use:. Cigarettes, Started age 16.0 Years. Stopped age 63 Years. Household tobacco concerns: No. Yes, 10/30/2023 Family History Congenital heart disease: Mother and Father. Diabetes mellitus: Father. Immunizations Vaccine Date Status Comments influenza virus vaccine, inactivated - Not Given Patient Refuses SARS-CoV-2 (COVID-19) [id number] 10/31/2022 Recorded influenza virus vaccine, inactivated 10/11/2022 Recorded SARS-CoV-2 (COVID-19) mRNA BNT-162b2 vax 10/19/2021 Recorded influenza virus vaccine, inactivated 09/10/2021 Recorded SARS-CoV-2 (COVID-19) mRNA BNT-162b2 vax 02/12/2021 Given Prophylaxis SARS-CoV-2 (COVID-19) mRNA BNT-162b2 vax 01/22/2021 Given Prophylaxis influenza virus vaccine, inactivated 09/09/2020 Recorded influenza virus vaccine, inactivated 11/15/2019 Recorded influenza virus vaccine, inactivated 09/17/2013 Recorded Normal [facility] Comment on above: Result Comment: Elec tronically Signed By: Isra Gaxiola MD\.br\Date and Time Signed: 10/30/23 14:34 EST [id number] 10-25-2023 HbA1c (Bld) [Mass fraction] 9.2 % High <=5.9 [facility] Comment on above: Performed By: #### [id number] #### [facility] [address] [place] [address] Ambulatory Visit Summaryon 1 12-24-2022 Ambulatory Visit Summary KARLY CHOPRA :1955 Visit Date:10/23/2023 Ambulatory Visit Instructions Your Diagnosis Type 2 diabetes mellitus with peripheral vascular disease Acute URI Tests Performed XR Chest 2 Views -- Results Pending -- Please visit your patient portal for your results or contact your primary care physician. Your Care Team Attending Physician - Isra Gaxiola MD Primary Care Physician - Isra Gaxiola MD This Is Your Medications List [facility] Prescription (Freestyle Irma Flash Glucose Monitoring 14 Day System (Sensor)) aspirin (aspirin 81 mg oral tablet) atorvastatin (atorvastatin 20 mg Tab) calcium-vitamin D (Calcium 600+D) cetirizine (cetirizine 10 mg Tab) estradiol topical (estradiol 0.1 mg/g Vag Crm) fluconazole (Diflucan 150 mg Tab) glipiZIDE (glipiZIDE 10 mg Tab) insulin degludec (Tresiba FlexTouch) metformin (Glucophage XR 500 mg Tab-ER) multivitamin (Dosoquin) semaglutide (Ozempic 8 mg/3 mL (2 mg dose) subcutaneous solution) semaglutide (Ozempic 8 mg/3 mL (2 mg dose) subcutaneous solution) telmisartan (telmisartan 40 mg Tab) Procedures Performed Colonoscopy (11/13/2018), Anterior and posterior repair (06/29/2018), bladder uplift (06/2018), Angioplasty of artery (12/14/2015), bypass graft right leg, Cyst removal right hand, excision of tumor left leg, Hysterectomy, Laparoscopic cholecystectomy. Discharge Vitals Temperature (Temporal Artery) 37.2 ?C Heart Rate (Peripheral) 88 Respiratory Rate 16 Blood Pressure 136/80 Height 169 cm Height 67 in Weight 88.0 kg Weight 193.6 lb BMI 30.81 What to do next Scheduled Follow-Up Appointments Monday 2:00 PM EST With: Minor THOMAS, Isra Wilkins Where: [facility] [place] Invalid Interpretation Code [address] [place] [address]- \.br\ Monday 9:00 AM EDT \.br\ With: KORI GOVEA PA-C\.br\ Where: [facility] Family Medicine Office/Clini c Noteon 10-23-2023 Family Medicine Office/Clinic Note HPI Staff Karly is a 68 year old female presenting for acute visit Acute: ear, congestions, cough needs poc A1C _Respiratory C/O: Duration: week ago Body aches: yes Chest congestion: yes Chills: yes Cough: yes Ear complaints: yes tickle Eye itching/watering: yes Fever: no Headache: no Nasal congestion: yes Nasal discharge: yes Poor appetite: no Reduced activity: yes Sinus pain/pressure: yes Sneezing: yes Sputum production: yes last niight but won't look at it Wheezing: no Ill contacts: yes granddaughter Remedies tried: tyelenol _ _ flu: will take when not sick History of Present Illness - See staff HPI. Review of Systems PHQ Score Initial Depression Screen Score: 1 SCORE Physical Exam Vitals & Measurements T: 37.2 ?C(Temporal Artery) HR: 88(Peripheral) RR: 16 BP: 136/80 SpO2: 98% HT: 67 in HT: 169 cm WT: 88.0 kg WT: 193.6 lb BMI: 30.81 General: alert, no acute distress ENMT: oral mucosa moist, Cardiovascular: regular rate and rhythm, normal peripheral perfusion Respiratory: respirations non labored, Rhonchi noted in the R posterior lung Extremities: no deformity, no trauma Neurological: oriented x 4, LOC appropriate for age, CN II-XII intact, motor strength equal & normal bilaterally, speech normal Abdomen: Soft, Nontender, Non-distended, + BS Assessment/Plan 1. Type 2 diabetes mellitus with peripheral vascular disease (E11.51: Type 2 diabetes mellitus with diabetic peripheral angiopathy without gangrene) - POC is may not be accurate. - Will do a lab drawl to check - Adjust meds based on that. Ordered: azithromycin, = 1 packet(s), Oral, As Directed, as directed on package labeling, X 5 day(s), # 6 tab(s), Refills(s) 0, Pharmacy: [facility]/pharmacy #[id number], 169, cm, 10/23/23 17:17:00 EST, Height/Length Dosing, 88, kg, 10/23/23 17:17:00 EST, Weight Dosing benzonatate, 200 mg = 1 cap(s), Oral, TID, X 7 day(s), # 21 cap(s), Refills(s) 0, Pharmacy: [facility]/pharmacy #[id number], 169, cm, 10/23/23 17:17:00 EST, Height/Length Dosing, 88, kg, 10/23/23 17:17:00 EST, Weight Dosing A1c POC 59963 HgbA1c Lab Specimen Collect [id number] Lab Specimen Collect [id number] XR Chest 2 Views 2. Acute URI (J06.9: Acute upper respiratory infection, unspecified) - Unsure if the patient has a PNA - Do not feel comfortable using steroids with her BS - CXR, Zpack as covid was negative - Tessalon to help Ordered: azithromycin, = 1 packet(s), Oral, As Directed, as directed on package labeling, X 5 day(s), # 6 tab(s), Refills(s) 0, [id number] 169, cm, 10/23/23 17:17:00 EST, Height/Length Dosing, 88, kg, 10/23/23 17:17:00 EST, Weight Dosing benzonatate, 200 mg = 1 cap(s), Oral, TID, X 7 day(s), # 21 cap(s), Refills(s) 0, [id number], 169, cm, 10/23/23 17:17:00 EST, Height/Length Dosing, 88, kg, 10/23/23 17:17:00 EST, Weight Dosing A1c POC 35502 Rapid COVID POC 65381 XR Chest 2 Views Follow-up No qualifying data available Problem List/Past Medical History Ongoing Acute URI Atherosclerosis of [place] arteries of extremities with intermittent claudication, right leg Cervical radiculopathy Diabetic retinopathy Disorder of adrenal gland Dysuria Hypercholesterolemia Lumbar strain Neurologic disorder associated with diabetes mellitus Peripheral vascular disease Recurrent UTI Shoulder pain, right Spinal stenosis of lumbar region Steatosis of liver Type 2 diabetes mellitus with hypercholesterolemia Type 2 diabetes mellitus with peripheral vascular disease Urinary frequency Venous insufficiency of leg Historical Hyperlipemia Hypertension Procedure/Surgical History Colonoscopy (11/13/2018), Anterior and posterior repair (06/29/2018), bladder uplift (06/2018), Angioplasty of artery (12/14/2015), bypass graft right leg, Cyst removal right hand, excision of tumor left leg, Hysterectomy, Laparoscopic cholecystectomy. Medications aspirin 81 mg oral tablet, 81 mg= 1 tab(s), Oral, Daily atorvastatin 20 mg Tab, See Instructions azithromycin 250 mg Tab 5-day Dose Pack (Z-Brian), 1 packet(s), Oral, As Directed benzonatate 200 mg oral capsule, 200 mg= 1 cap(s), Oral, TID Calcium 600+D, 1 tab, Oral, BID cetirizine 10 mg Tab, 10 mg= 1 tab(s), Oral, Daily, 1 refills Diflucan 150 mg Tab, 150 mg= 1 tab(s), Oral, Once Dosoquin, 1 tab, Oral, Daily estradiol 0.1 mg/g Vag Crm, 1 gm, Vaginal, As Directed, 5 refills Freestyle Irma Flash Glucose Monitoring 14 Day System (Sensor), See Instructions, 1 refills glipiZIDE 10 mg Tab, See Instructions Glucophage XR 500 mg Tab-ER, 1000 mg= 2 tab(s), Oral, BID, 1 refills Ozempic 8 mg/3 mL (2 mg dose) subcutaneous solution, 2 mg, SubCutaneous, qWeek, 3 refills Ozempic 8 mg/3 mL (2 mg dose) subcutaneous solution, 2 mg, SubCutaneous, qWeek, 3 refills telmisartan 40 mg Tab, See Instructions Tresiba FlexTouch, See Instructions Allergies Levaquin (Unknown) penicillin (Yeast infection) Social History Alco (more content not included)... [facility] Comment on above: Result Comment: Elec tronically Signed By: Minor THOMAS, Isra Montemayor.br\Date and Time Signed: 10/23/23 19:02 EST Outside [facility] 10-11-2023 Outside Diabetes [facility] Exam [id number]# 1.00TIFF [facility] PT - Consentson 09-29-2023 PT - Consents [id number] 9#1.00TIFF [facility] PT - Home Exercise Programon 09-29-2023 PT - Home Exercise Program [id number] 9#1.00TIFF [facility] PT - Progress Noteson 2022 PT - Progress Notes [id number] 3#1.00TIFF [facility] Consent for Treatmenton 09-13 Consent for Treatment [id number] #1.00TIFF [facility] MA Mamm Screen w/CAD if perf and 3D Bilon 09-22-2023 MA Mamm Screen w/CAD if perf and 3D Vishal Exam Date/Time: 09/22/2023 08:00 EST Reason for Exam: Z12.31 Report IMPRESSION: BIRADS 2 BENIGN FINDINGS, NORMAL INTERVAL FOLLOW-UP. EXAMINATION: MA Mamm Screen w/CAD if perf and 3D Vishal CLINICAL HISTORY: Z12.31 COMPARISON: Priors dating back to 2017. RESULT: Digital mammography and 3D tomosynthesis of bilateral breasts was performed. Scattered areas of fibroglandular density. There is no suspicious mass, asymmetry, architectural distortion, or calcification. Benign calcifications including vascular calcifications. Vascular calcifications: Present. CAD analysis was performed and used in the interpretation. Dense Breast: No Follow-up: 12 MONTH RECALL. Board Certified Radiologists. Accredited by the ACR and FDA. MAMMOGRAPHY IS VERY IMPORTANT TO YOUR HEALTH. THE [employer] GUIDELINES RECOMMEND THAT WOMEN 40 YEARS OF AGE AND OLDER SHOULD HAVE A MAMMOGRAM EVERY YEAR. A REMINDER LETTER WILL BE SENT AT THE APPROPRIATE TIME. THIS FACILITY UTILIZES A REMINDER SYSTEM TO ENSURE ALL PATIENTS RECEIVE REMINDER NOTIFICATIONS AT THE APPROPRIATE TIME BASED ON THE RECOMMENDATIONS OF THIS EXAM. THIS INCLUDES REMINDERS FOR ROUTINE SCREENING MAMMOGRAMS, DIAGNOSTIC MAMMOGRAMS IN WHICH THE PATIENT IS ASKED TO RETURN FOR ADDITIONAL VIEWS, OR OTHER BREAST IMAGING INTERVENTIONS WHEN APPROPRIATE. THE PATIENT WILL BE PLACED IN THE APPROPRIATE REMINDER SYSTEM INCLUDING A REMINDER AT THE APPROPRIATE TIME FOR ANY PENDING ADDITIONAL VIEWS. Report Ordering Provider: Sunni Olivier FINAL REPORT Dictated: 09/22/2023 4:32 pm Johnny Sanchez MD. Signed (Electronic Signature): 09/22/2023 4:32 pm Signed by: Johnny Sanchez MD Transcribed by: ULCIA Technologist: [facility] Assessment: BI-RADS Category 2-Benign finding Recommendation: Normal interval follow-up Normal [facility] Ambulatory Visit Summaryon 1 11-19-2022 Ambulatory Visit Summary KARLY CHOPRA :1955 Visit Date:09/19/2023 Ambulatory Visit Instructions Your Diagnosis Type 2 diabetes mellitus with hypercholesterolemia Type 2 diabetes mellitus with peripheral vascular disease BMI 29.0-29.9,adult Overweight child Your Care Team Attending Physician - Isra Gaxiola MD Primary Care Physician - Isra Gaxiola MD This Is Your Medications List semaglutide (Ozempic 8 mg/3 mL (2 mg dose) subcutaneous solution) Contact prescribing physician if questions or concerns Misc Prescription (LFS ([employer]e Flash Glucose Monitoring 14 Day System (Sensor)) aspirin (aspirin 81 mg oral tablet) atorvastatin (atorvastatin 20 mg Tab) calcium-vitamin D (Calcium 600+D) cetirizine (cetirizine 10 mg Tab) estradiol topical (estradiol 0.1 mg/g Vag Crm) fluconazole (Diflucan 150 mg Tab) glipiZIDE (glipiZIDE 10 mg Tab) metformin (Glucophage XR 500 mg Tab-ER) methenamine (methenamine hippurate 1 g oral tablet) multivitamin (Dosoquin) telmisartan (telmisartan 40 mg Tab) Procedures Performed Colonoscopy (11/13/2018), Anterior and posterior repair (06/29/2018), bladder uplift (06/2018), Angioplasty of artery (12/14/2015), bypass graft right leg, Cyst removal right hand, excision of tumor left leg, Hysterectomy, Laparoscopic cholecystectomy. Discharge Vitals Temperature (Temporal Artery) 36.4 ?C Heart Rate (Peripheral) 92 Respiratory Rate 16 Blood Pressure 132/78 Height 67 in Height 169 cm Weight 188.32 lb Weight 85.6 kg BMI 29.97 What to do next Scheduled Follow-Up Appointments 2022 9:15 AM EST With: Where: [facility] Monday 7:30 AM EST With: Where: [facility] Monday 10:30 AM EST With: Where: [facility] Monday 8:45 AM EST With: Where: [facility] Monday 7:15 AM EST With: Isra Gaxiola MD Where: [facility] Invalid Interpretation Code [address] [place] [address]- \.br\ Monday 11:00 AM EDT \.br\ With:\.br\ Where: [facility] Ambulatory Visit Summary KARLY CHOPRA :1955 Visit Date:09/19/2023 Ambulatory Visit Instructions Your Diagnosis Type 2 diabetes mellitus with hypercholesterolemia Type 2 diabetes mellitus with peripheral vascular disease BMI 29.0-29.9,adult Overweight child Your Care Team Attending Physician - Isra Gaxiola MD Primary Care Physician - Isra Gaxiola MD This Is Your Medications List semaglutide (Ozempic 8 mg/3 mL (2 mg dose) subcutaneous solution) Contact prescribing physician if questions or concerns Misc Prescription (Freestyle Irma Flash Glucose Monitoring 14 Day System (Sensor)) aspirin (aspirin 81 mg oral tablet) atorvastatin (atorvastatin 20 mg Tab) calcium-vitamin D (Calcium 600+D) cetirizine (cetirizine 10 mg Tab) estradiol topical (estradiol 0.1 mg/g Vag Crm) fluconazole (Diflucan 150 mg Tab) glipiZIDE (glipiZIDE 10 mg Tab) metformin (Glucophage XR 500 mg Tab-ER) methenamine (methenamine hippurate 1 g oral tablet) multivitamin (Dosoquin) telmisartan (telmisartan 40 mg Tab) Procedures Performed Colonoscopy (11/13/2018), Anterior and posterior repair (06/29/2018), bladder uplift (06/2018), Angioplasty of artery (12/14/2015), bypass graft right leg, Cyst removal right hand, excision of tumor left leg, Hysterectomy, Laparoscopic cholecystectomy. Discharge Vitals Temperature (Temporal Artery) 36.4 ?C Heart Rate (Peripheral) 92 Respiratory Rate 16 Blood Pressure 132/78 Height 67 in Height 169 cm Weight 188.32 lb Weight 85.6 kg BMI 29.97 What to do next Scheduled Follow-Up Appointments 2022 9:15 AM EST With: Where: [facility] Monday 7:30 AM EST With: Where: [facility] Monday 10:30 AM EST With: Where: [facility] Monday 8:45 AM EST With: Where: [facility] Monday 7:15 AM EST With: Isra Gaxiola MD Where: [facility] Invalid Interpretation Code [address] [place] [address]- \.br\ Monday 11:00 AM EDT \.br\ With:\.br\ Where: [facility] Family Medicine Office/Clini c Noteon 09-19-2023 Family Medicine Office/Clinic Note HPI Staff Karly is a 68 year old female presenting for lab results labs done 08/17/23 Do you have any of the following symptoms? Foot Exam: UTD Eye Exam: not yet waiting until sugars go down Last A1C: Hgb A1C %: 12.2 % High (08/02/23 09:18:00) Statin: atorvastatin 20mg flu: due questions/concerns: none used last ozempic ? ? refill takes them on fridays gets them at [facility] History of Present Illness - Pt here for DM follow up. - Doing much better - Feeling great - Wants to continue with the Ozempic Review of Systems PHQ Score Initial Depression Screen Score: 0 Physical Exam Vitals & Measurements T: 36.4 ?C(Temporal Artery) HR: 92(Peripheral) RR: 16 BP: 132/78 SpO2: 98% HT: 67 in HT: 169 cm WT: 85.6 kg WT: 188.32 lb BMI: 29.97 General: alert, no acute distress ENMT: oral mucosa moist, Cardiovascular: regular rate and rhythm, normal peripheral perfusion Respiratory: Lungs CTA, respirations non labored Extremities: no deformity, no trauma Neurological: oriented x 4, LOC appropriate for age, CN II-XII intact, motor strength equal & normal bilaterally, speech normal Abdomen: Soft, Nontender, Non-distended, + BS Assessment/Plan 1. Type 2 diabetes mellitus with hypercholesterolemia (E11.69: Type 2 diabetes mellitus with other specified complication) - BS have improved significantly. - Will get an A1c today as I do believe she will be at goal. 2. Type 2 diabetes mellitus with peripheral vascular disease (E11.51: Type 2 diabetes mellitus with diabetic peripheral angiopathy without gangrene) - As above. Orders: semaglutide, 2 mg, SubCutaneous, qWeek, # 4 EA, Refills(s) 3, Pharmacy: [facility]/pharmacy #[id number], 169, cm, 09/19/23 13:24:00 EST, Height/Length Dosing, 85.6, kg, 09/19/23 13:24:00 EST, Weight Dosing Follow-up No qualifying data available Patient Education Blood Glucose Monitoring, Adult Problem List/Past Medical History Ongoing Atherosclerosis of [place] arteries of extremities with intermittent claudication, right leg Cervical radiculopathy Disorder of adrenal gland Dysuria Hypercholesterolemia Lumbar strain Neurologic disorder associated with diabetes mellitus Peripheral vascular disease Recurrent UTI Shoulder pain, right Spinal stenosis of lumbar region Steatosis of liver Type 2 diabetes mellitus with hypercholesterolemia Type 2 diabetes mellitus with peripheral vascular disease Urinary frequency Venous insufficiency of leg Historical Hyperlipemia Hypertension Procedure/Surgical History Colonoscopy (11/13/2018), Anterior and posterior repair (06/29/2018), bladder uplift (06/2018), Angioplasty of artery (12/14/2015), bypass graft right leg, Cyst removal right hand, excision of tumor left leg, Hysterectomy, Laparoscopic cholecystectomy. Medications aspirin 81 mg oral tablet, 81 mg= 1 tab(s), Oral, Daily atorvastatin 20 mg Tab, See Instructions Calcium 600+D, 1 tab, Oral, BID cetirizine 10 mg Tab, 10 mg= 1 tab(s), Oral, Daily, 1 refills Diflucan 150 mg Tab, 150 mg= 1 tab(s), Oral, Once Dosoquin, 1 tab, Oral, Daily estradiol 0.1 mg/g Vag Crm, 1 gm, Vaginal, As Directed, 5 refills [employer] Irma Flash Glucose Monitoring 14 Day System (Sensor), See Instructions, 1 refills glipiZIDE 10 mg Tab, See Instructions Glucophage XR 500 mg Tab-ER, 1000 mg= 2 tab(s), Oral, BID, 1 refills methenamine hippurate 1 g oral tablet, 1 gm= 1 tab(s), Oral, BID, 5 refills Ozempic 8 mg/3 mL (2 mg dose) subcutaneous solution, 2 mg, SubCutaneous, qWeek, 3 refills telmisartan 40 mg Tab, See Instructions Allergies Levaquin (Unknown) penicillin (Yeast infection) Social History Alcohol - Denies Alcohol Use, 08/04/2013 Household alcohol concerns: No., 05/17/2023 Substance Abuse - Denies Substance Abuse, 08/04/2013 Tobacco - Denies Tobacco Use, 06/15/2018 Former smoker, quit more than 30 days ago Tobacco Use:. Never Smokeless Tobacco Use:. Cigarettes, Started age 16.0 Years. Stopped age 63 Years. Household tobacco concerns: No. Yes, 09/19/2023 Family History Congenital heart disease: Mother and Father. Diabetes mellitus: Father. Immunizations Vaccine Date Status Comments SARS-CoV-2 (COVID-19) mRNAMUL.[id number] 10/31/2022 Recorded influenza virus vaccine, inactivated 10/11/2022 Recorded SARS-CoV-2 (COVID-19) mRNA BNT-162b2 vax 10/19/2021 Recorded influenza virus vaccine, inactivated 09/10/2021 Recorded SARS-CoV-2 (COVID-19) mRNA BNT-162b2 vax 02/12/2021 Given Prophylaxis SARS-CoV-2 (COVID-19) mRNA BNT-162b2 vax 01/22/2021 Given Prophylaxis influenza virus vaccine, inactivated 09/09/2020 Recorded influenza virus vaccine, inactivated 11/15/2019 Recorded influenza virus vaccine, inactivated 09/17/2013 Recorded Normal [facility] Comment on above: Result Comment: Elec tronically Signed By: Minor THOMAS, Isra Franciscobr\Date and Time Signed: 09/19/23 13:39 EST Patient Educationon 09-19-20 Patient Education Endocrinology Blood Glucose Monitoring, Adult Monitoring your blood sugar (glucose) is an important part of managing your diabetes. Blood glucose monitoring involves checking your blood glucose as often as directed and keeping a log or record of your results over time. Checking your blood glucose regularly and keeping a blood glucose log can: ? Help you and your health care provider adjust your diabetes management plan as needed, including your medicines or insulin. ? Help you understand how food, exercise, illnesses, and medicines affect your blood glucose. ? Let you know what your blood glucose is at any time. You can quickly find out if you have low blood glucose (hypoglycemia) or high blood glucose (hyperglycemia). Your health care provider will set individualized treatment goals for you. Your goals will be based on your age, other medical conditions you have, and how you respond to diabetes treatment. Generally, the goal of treatment is to maintain the following blood glucose levels: ? Before meals (preprandial): 80?130 mg/dL (4.4?7.2 mmol/L). ? After meals (postprandial): below 180 mg/dL (10 mmol/L). ? A1C level: less than 7%. Supplies needed: ? Blood glucose meter. ? Test strips for your meter. Each meter has its own strips. You must use the strips that came with your meter. ? A needle to prick your finger (lancet). Do not use a lancet more than one time. ? A device that holds the lancet (lancing device). ? A journal or log book to write down your results. How to check your blood glucose Checking your blood glucose 1. Wash your hands for at least 20 seconds with soap and water. 2. Prick the side of your finger (not the tip) with the lancet. Do not use the same finger consecutively. 3. Gently rub the finger until a small drop of blood appears. 4. Follow instructions that come with your meter for inserting the test strip, applying blood to the strip, and using your blood glucose meter. 5. Write down your result and any notes in your log. Using alternative sites Some meters allow you to use areas of your body other than your finger (alternative sites) to test your blood. The most common alternative sites are the forearm, the thigh, and the palm of your hand. Alternative sites may not be as accurate as the fingers because blood flow is slower in those areas. This means that the result you get may be delayed, and it may be different from the result that you would get from your finger. Use the finger only, and do not use alternative sites, if: ? You think you have hypoglycemia. ? You sometimes do not know that your blood glucose is getting low (hypoglycemia unawareness). General tips and recommendations Blood glucose log ? Every time you check your blood glucose, write down your result. Also write down any notes about things that may be affecting your blood glucose, such as your diet and exercise for the day. This information can help you and your health care provider: ? Look for patterns in your blood glucose over time. ? Adjust your diabetes management plan as needed. ? Check if your meter allows you to download your records to a computer or if there is an tammie for the meter. Most glucose meters store a record of glucose readings in the meter. If you have type 1 diabetes: ? Check your blood glucose 4 or more times a day if you are on intensive insulin therapy with multiple daily injections (MDI) or if you are using an insulin pump. Check your blood glucose: ? Before every meal and snack. ? Before bedtime. ? Also check your blood glucose: ? If you have symptoms of hypoglycemia. ? After treating low blood glucose. ? Before doing activities that create a risk for injury, like driving or using machinery. ? Before and after exercise. ? Two hours after a meal. ? Occasionally between 2:00 a.m. and 3:00 a.m., as directed. ? You may need to check your blood glucose more often, 6?10 times per day, if: ? You have diabetes that is not well controlled. ? You are ill. ? You have a history of severe hypoglycemia. ? You have hypoglycemia unawareness. If you have type 2 diabetes: ? Check your blood glucose 2 or more times a day if you take insulin or other diabetes medicines. ? Check your blood glucose 4 or more times a day if you are on intensive insulin therapy. Occasionally, you may also need to check your glucose between 2:00 a.m. and 3:00 a.m., as directed. ? Also check your blood glucose: ? Before and after exercise. ? Before doing activities that create a risk for injury, like driving or using machinery. ? You may need to check your blood glucose more often if: ? Your medicine is being adjusted. ? Your diabetes is not well controlled. ? You are ill. General tips ? Make sure you always have your supplies with you. ? After you use a few boxes of test strips, adjust (calibrate) your blood glucose meter by following in (more content not included)... [facility] Nonvisit Note - PTon 023 Nonvisit Note - PT Cancel [facility] Diabetic Self Management Edu cationon 09-07-2023 Diabetic Self Management Education [id number] 8#1.00TIFF [facility] PT - Home Exercise Programon 09-06-2023 PT - Home Exercise Program [id number]# 1.00TIFF [facility] Consultation Noteon 09-05-20 Consultation Note [id number] #1.00TIFF [facility] RAD - MISCon 09-01-2023 RAD - MISC [id number] #1.00TIFF [facility] RAD - Ultrasound Reporton RAD - Ultrasound Report [id number] 80#1.00TIFF [facility] Consultation Noteon 08-30-20 Consultation Note [id number] #1.00TIFF Normal [facility] Insurance Correspondenceon Insurance Correspondence [id number] 5#1.00TIFF Normal [facility] PT - Assessmentson PT - Assessments [id number] #1.00TIFF [facility] PT - Consentson 08-30-2023 PT - Consents [id number] #1.00TIFF [facility] Consent for Treatmenton 08-13 Consent for Treatment [id number] #1.00TIFF [facility] Outside Recordson 08-29-2023 Outside Records [id number] 5#1.00TIFF [facility] PT - Orderson 08-29-2023 PT - Orders [id number] 7#1.00TIFF [facility] RAD - MISCon 08-29-2023 RAD - MISC [id number] #1.00TIFF [facility] RAD - Ultrasound Reporton RAD - Ultrasound Report [id number] #1.00TIFF [facility] Screenson 08-23-2023 Screens [id number] 8#1.00TIFF [facility] Ambulatory Visit Summaryon Ambulatory Visit Summary KARLY CHOPRA :1955 Visit Date:08/22/2023 Ambulatory Visit Instructions Your Diagnosis Recurrent UTI Urinary frequency Tests Performed Urnls Dip Stick Auto w/o Microscopy POC 31578 US Renal -- Results Pending -- XR Abdomen 1 View -- Results Pending -- Please visit your patient portal for your results or contact your primary care physician. Your Care Team Attending Physician - KORI GOVEA PA-C Primary Care Physician - Isra Gaxiola MD. Referring Physician - Isra Gaxiola MD. This Is Your Medications List estradiol topical (estradiol 0.1 mg/g Vag Crm) methenamine (methenamine hippurate 1 g oral tablet) Contact prescribing physician if questions or concerns Misc Prescription (LFS ([employer]e Flash Glucose Monitoring 14 Day System (Sensor)) aspirin (aspirin 81 mg oral tablet) atorvastatin (atorvastatin 20 mg Tab) calcium-vitamin D (Calcium 600+D) cetirizine (cetirizine 10 mg Tab) fluconazole (Diflucan 150 mg Tab) glipiZIDE (glipiZIDE 10 mg Tab) metformin (Glucophage XR 500 mg Tab-ER) multivitamin (Dosoquin) semaglutide (Ozempic 8 mg/3 mL (2 mg dose) subcutaneous solution) telmisartan (telmisartan 40 mg Tab) Procedures Performed Colonoscopy (11/13/2018), Anterior and posterior repair (06/29/2018), bladder uplift (06/2018), Angioplasty of artery (12/14/2015), bypass graft right leg, Cyst removal right hand, excision of tumor left leg, Hysterectomy, Laparoscopic cholecystectomy. Discharge Vitals Heart Rate (Peripheral) 90 Respiratory Rate 16 Blood Pressure 140/89 Height 169 cm Height 67 in Weight 82 kg Weight 180.4 lb BMI 28.71 What to do next Scheduled Follow-Up Appointments Monday 9:00 AM EDT With: KORI GOVEA PA-C Where: [facility] [address] [address]- \.br\ You Need to Schedule the Following Appointments\.br\ Follow Up with KORI GOVEA PA-C, URL When: In 6 months\.br\ Comments:\.br\ w/[facility]\.br\ Where:\.br\ [address]br\ [place] [address]\.br\ Medications\.br\ What How Much When Why Instructions\.br\ New estradiol topical (estradiol 0.1 mg/ g Vag Crm) 1 Gram Vaginal As Directed Refills: 5 Apply pea-sized amount vaginally at night for 3 weeks, then 3 times a week for maintenance. Pickup at [facility]/pharmacy #[id number]\.br\ New methenamine (methenamine hippurate 1 g oral tablet) 1 Tablets By Mouth 2 times a day Duration: 30 Days Refills: 5 Pickup at [facility]/pharmacy #[id number]\.br\ Unchanged aspirin (aspirin 81 mg oral tablet) 1 Tablets By Mouth Every day Contact prescribing physician if questions or concerns \.br\ Unchanged atorvastatin (atorvastatin 20 mg Tab) 1 Tablets By Mouth Every day Contact prescribing physician if questions or concerns \.br\ Unchanged calcium-vitamin D (Calcium 600+D) 1 tab By Mouth 2 times a day Contact prescribing physician if questions or concerns \.br\ Unchanged cetirizine (cetirizine 10 mg Tab) 1 Tablets By Mouth Every day Contact prescribing physician if questions or concerns \.br\ Unchanged fluconazole (Diflucan 150 mg Tab) 1 Tablets By Mouth Once UTI symptoms Type 2 diabetes mellitus with complication BMI 28.0-28.9,adult Over weight Contact prescribing physician if questions or concerns \.br\ Unchanged glipiZIDE (glipiZIDE 10 mg Tab) 1 Tablets By Mouth 2 times a day Contact prescribing physician if questions or concerns \.br\ Unchanged metformin (Glucophage XR 500 mg Tab-ER) 2 Tablets By Mouth 2 times a day Type 2 diabetes mellitus without complication, without long-term current use of insulin Hypercholesterolemia Chronic fatigue Neurologic disorder associated with diabetes mellitus Peripheral vascular disease Atherosclerosis of [place] arteries of extremities with intermittent claudication, right leg Former smoker BMI 31.0-31.9,adult Contact prescribing physician if questions or concerns \.br\ Unchanged Misc Prescription (Freestyle Irma Flash Glucose Monitoring 14 Day System (Sensor)) See instructions Type 2 diabetes mellitus without complication, without long-term current use of insulin Hypercholesterolemia Chronic fatigue Neurologic disorder associated with diabetes mellitus Peripheral vascular disease Atherosclerosis of [place] arteries of extremities with intermittent claudication, right leg Former smoker BMI 31.0-31.9,adult Freestyle Irma Flash Glucose Monitoring 14 Day System (Sensor). Replace sensor every 14 days. Contact prescribing physician if questions or concerns \.br\ Unchanged multivitamin (Dosoquin) 1 tab By Mouth Every day Contact prescribing physician if questions or concerns \.br\ Unchanged semaglutide (Ozempic 8 mg/ 3 mL (2 mg dose) subcutaneous solution) 2 Milligram Subcutaneous Every week Contact prescribing physician if questions or concerns \.br\ Unchanged telmisartan (telmisartan 40 mg Tab) See instructions TAKE 1/ 2 TABLET BY MOUTH DAILY Contact prescribing physician if questions or concerns \.br\ Pharmacy Information\.br\ [facility]/pharmacy #[id number]: [address], [place] [id number] [phone]\.br\ Test Results\.br\ Urnls Dip Stick Auto w/o Microscopy POC 56611 (08/22/2023)\.br\ Bilirubin Urine Dipstick - Negative\.br\ Blood Urine Dipstick - Trace-intact\.br\ Glucose Urine Dipstick - 3+ 1000 mg/dl\.br\ Ketones Urine Dipstick - 1+ 15 mg/dl\.br\ Leukocytes Urine Dipstick - Negative\.br\ Nitrite Urine Dipstick - Negative\.br\ Protein Urine Dipstick - Trace\.br\ Specific [place] Urine Dipstick - 1.020\.br\ Urine Appearance Urine Dipstick - Clear\.br\ Urine Color Urine Dipstick - Yellow\.br\ Urobilinogen Urine Dipstick - Normal 0.2-1 EU/dl\.br\ pH Urine Dipstick - 5\.br\ Allergies\.br\ Levaquin (Unknown)\.br\ penicillin (Yeast infection)\.br\ Problems\.br\ Ongoing - Any problem that you are currently receiving treatment for.\.br\ Atherosclerosis of [place] arteries of extremities with intermittent claudication, right leg\.br\ Cervical radiculopathy\.br\ Disorder of adrenal gland\.br\ Dysuria\.br\ Hypercholesterolemia\ .br\ Lumbar strain\.br\ Neurologic disorder associated with diabetes mellitus\.br\ Peripheral vascular disease\.br\ Recurrent UTI\.br\ Shoulder pain, right\.br\ Spinal stenosis of lumbar region\.br\ Steatosis of liver\.br\ Type 2 diabetes mellitus with complication\.br\ Urinary frequency\.br\ Venous insufficiency of leg\.br\ Historical - Any problem that you are no longer receiving treatment for.\.br\ Hyperlipemia\.br\ Hypertension\.br\ Education Materials\.br\ Urinary Tract Infection, Adult\.br\ \.br\ A urinary tract infection (UTI) is an infection of any part of the urinary tract. The urinary tract includes:\.br\ ? \.br\ The kidneys.\.br\ ? \.br\ The ureters.\.br\ ? \.br\ The bladder.\.br\ ? \.br\ The urethra.\.br\ These organs make, store, and get rid of pee (urine) in the body.\.br\ What are the causes?\.br\ This infection is caused by germs (bacteria) in your genital area. These germs grow and cause swelling (inflammation) of your urinary tract.\.br\ What increases the risk?\.br\ The following factors may make you more likely to develop this condition:\.br\ ? \.br\ Using a small, thin tube (catheter) to drain pee.\.br\ ? \.br\ Not being able to control when you pee or poop (incontinence).\.br\ ? \.br\ Being female. If you are female, these things can increase the risk:\.br\ ? \.br\ Using these methods to prevent :\.br\ ? \.br\ A medicine that kills sperm (spermicide).\.br\ ? \.br\ A device that blocks sperm (diaphragm).\.br\ ? \.br\ Having low levels of a female hormone (estrogen).\.br\ ? \.br\ Being .\.br\ You are more likely to develop this condition if:\.br\ ? \.br\ You have genes that add to your risk.\.br\ ? \.br\ You are sexually active.\.br\ ? \.br\ You take antibiotic medicines.\.br\ ? \.br\ You have trouble peeing because of:\.br\ ? \.br\ A prostate that is bigger than normal, if you are male.\.br\ ? \.br\ A blockage in the part of your body that drains pee from the bladder.\.br\ ? \.br\ A kidney stone.\.br\ ? \.br\ A nerve condition that affects your bladder.\.br\ ? \.br\ Not getting enough to drink.\.br\ ? \.br\ Not peeing often enough.\.br\ ? \.br\ You have other conditions, such as:\.br\ ? \.br\ Diabetes.\.br\ ? \.br\ A weak disease-fighting system (immune system).\.br\ ? \.br\ Sickle cell disease.\.br\ ? \.br\ Gout.\.br\ ? \.br\ Injury of the spine.\.br\ What are the signs or symptoms?\.br\ Symptoms of this condition include:\.br\ ? \.br\ Needing to pee right away.\.br\ ? \.br\ Peeing small amounts often.\.br\ ? \.br\ Pain or burning when peeing.\.br\ ? \.br\ Blood in the pee.\.br\ ? \.br\ Pee that smells bad or not like normal.\.br\ ? \.br\ Trouble peeing.\.br\ ? \.br\ Pee that is cloudy.\.br\ ? \.br\ Fluid coming from the vagina, if you are female.\.br\ ? \.br\ Pain in the belly or lower back.\.br\ Other symptoms include:\.br\ ? \.br\ Vomiting.\.br\ ? \.br\ Not feeling hungry.\.br\ ? \.br\ Feeling mixed up (confused). This may be the first symptom in older adults.\.br\ ? \.br [facility] Ambulatory Visit Summary KARLY CHOPRA :1955 Visit Date:08/22/2023 Ambulatory Visit Instructions Your Diagnosis Recurrent UTI Urinary frequency Tests Performed Urnls Dip Stick Auto w/o Microscopy POC 65379 US Renal -- Results Pending -- XR Abdomen 1 View -- Results Pending -- Please visit your patient portal for your results or contact your primary care physician. Your Care Team Attending Physician - JEFERSON STARK, KORI Alvarez Primary Care Physician - Isra Gaxiola MD. Referring Physician - Isra Gaxiola MD. This Is Your Medications List Contact prescribing physician if questions or concerns Misc Prescription ([employer] Irma Flash Glucose Monitoring 14 Day System (Sensor)) aspirin (aspirin 81 mg oral tablet) atorvastatin (atorvastatin 20 mg Tab) calcium-vitamin D (Calcium 600+D) cetirizine (cetirizine 10 mg Tab) fluconazole (Diflucan 150 mg Tab) glipiZIDE (glipiZIDE 10 mg Tab) metformin (Glucophage XR 500 mg Tab-ER) multivitamin (Dosoquin) semaglutide (Ozempic 8 mg/3 mL (2 mg dose) subcutaneous solution) telmisartan (telmisartan 40 mg Tab) Procedures Performed Colonoscopy (11/13/2018), Anterior and posterior repair (06/29/2018), bladder uplift (06/2018), Angioplasty of artery (12/14/2015), bypass graft right leg, Cyst removal right hand, excision of tumor left leg, Hysterectomy, Laparoscopic cholecystectomy. Discharge Vitals Heart Rate (Peripheral) 90 Respiratory Rate 16 Blood Pressure 140/89 Height 169 cm Height 67 in Weight 82 kg Weight 180.4 lb BMI 28.71 What to do next Scheduled Follow-Up Appointments Monday 11:00 AM EDT Where: [facility] [place] Patient Educationon 08-22-20 23 Patient Education Obstetrics and Gynecology Urinary Tract Infection, Adult A urinary tract infection (UTI) is an infection of any part of the urinary tract. The urinary tract includes: ? The kidneys. ? The ureters. ? The bladder. ? The urethra. These organs make, store, and get rid of pee (urine) in the body. What are the causes? This infection is caused by germs (bacteria) in your genital area. These germs grow and cause swelling (inflammation) of your urinary tract. What increases the risk? The following factors may make you more likely to develop this condition: ? Using a small, thin tube (catheter) to drain pee. ? Not being able to control when you pee or poop (incontinence). ? Being female. If you are female, these things can increase the risk: ? Using these methods to prevent : ? A medicine that kills sperm (spermicide). ? A device that blocks sperm (diaphragm). ? Having low levels of a female hormone (estrogen). ? Being . You are more likely to develop this condition if: ? You have genes that add to your risk. ? You are sexually active. ? You take antibiotic medicines. ? You have trouble peeing because of: ? A prostate that is bigger than normal, if you are male. ? A blockage in the part of your body that drains pee from the bladder. ? A kidney stone. ? A nerve condition that affects your bladder. ? Not getting enough to drink. ? Not peeing often enough. ? You have other conditions, such as: ? Diabetes. ? A weak disease-fighting system (immune system). ? Sickle cell disease. ? Gout. ? Injury of the spine. What are the signs or symptoms? Symptoms of this condition include: ? Needing to pee right away. ? Peeing small amounts often. ? Pain or burning when peeing. ? Blood in the pee. ? Pee that smells bad or not like normal. ? Trouble peeing. ? Pee that is cloudy. ? Fluid coming from the vagina, if you are female. ? Pain in the belly or lower back. Other symptoms include: ? Vomiting. ? Not feeling hungry. ? Feeling mixed up (confused). This may be the first symptom in older adults. ? Being tired and grouchy (irritable). ? A fever. ? Watery poop (diarrhea). How is this treated? ? Taking antibiotic medicine. ? Taking other medicines. ? Drinking enough water. In some cases, you may need to see a specialist. Follow these instructions at home: Medicines ? Take hoqj-gjm-twceykw and prescription medicines only as told by your doctor. ? If you were prescribed an antibiotic medicine, take it as told by your doctor. Do not stop taking it even if you start to feel better. General instructions ? Make sure you: ? Pee until your bladder is empty. ? Do not hold pee for a long time. ? Empty your bladder after sex. ? Wipe from front to back after peeing or pooping if you are a female. Use each tissue one time when you wipe. ? Drink enough fluid to keep your pee pale yellow. ? Keep all follow-up visits. Contact a doctor if: ? You do not get better after 1?2 days. ? Your symptoms go away and then come back. Get help right away if: ? You have very bad back pain. ? You have very bad pain in your lower belly. ? You have a fever. ? You have chills. ? You feeling like you will vomit or you vomit. Summary ? A urinary tract infection (UTI) is an infection of any part of the urinary tract. ? This condition is caused by germs in your genital area. ? There are many risk factors for a UTI. ? Treatment includes antibiotic medicines. ? Drink enough fluid to keep your pee pale yellow. This information is not intended to replace advice given to you by your health care provider. Make sure you discuss any questions you have with your health care provider. Document Revised: 06/11/2021 Document Reviewed: 06/11/2021 [email or web address] Patient Education ? 2022 [email or web address] Normal [facility] CMPon 08-17-2023 Albumin [Mass/Vol] 4.2 g/dL Normal 3.3-5.0 [facility] Comment on above: Order Comment: [facility] [email or web address] 08/17/2023 14:55:04 EDT Performed By: #### 2 [id number], [id number], [id number] #### [facility] [address] [place] [address] Albumin/Globulin (S) [Mass conc ratio] 1.2 Normal 1.1-2.2 [facility] Comment on above: Order Comment: [facility] [id number] 08/17/2023 14:55:04 EDT Performed By: #### 2 [id number], [id number], [id number] #### [facility] [address] [place] [address] ALP [Catalytic activity/Vol] 92 Int._Unit/L Normal 21-98 [facility] Comment on above: Order Comment: [facility] [email or web address] 08/17/2023 14:55:04 EDT Performed By: #### 2 [id number], [id number], [id number] #### [facility] [address] [place] [address] ALT No additional P-5'-P [Catalytic activity/Vol] 26 Int._Unit/L Normal 6-46 [facility] Comment on above: Order Comment: [facility] [place] [email or web address] 08/17/2023 14:55:04 EDT Performed By: #### 2 [id number], [id number], [id number] #### [facility] [address] [place] [address] Anion gap [Moles/Vol] 13 mmol/L Normal 6-16 [facility] Comment on above: Order Comment: [facility] [place] [email or web address] 08/17/2023 14:55:04 EDT Performed By: #### 2 [id number], [id number], [id number] #### [facility] [address] [place] [address] AST [Catalytic activity/Vol] 20 Int._Unit/L Normal 5-43 [facility] Comment on above: Order Comment: [facility] [place] [email or web address] 08/17/2023 14:55:04 EDT Performed By: #### 2 [id number], [id number], [id number] #### [facility] [address] [place] [address] Bilirubin [Mass/Vol] 0.5 mg/dL Normal 0.0-1.1 [facility] Comment on above: Order Comment: [facility] [place] [id number] 08/17/2023 14:55:04 EDT Performed By: #### 2 643807, [id number], [id number] #### [facility] [address] [place] [address] Calcium [Mass/Vol] 10.1 mg/dL Normal 8.9-11.1 [facility] Comment on above: Order Comment: [facility] [id number] 08/17/2023 14:55:04 EDT Performed By: #### 2 343452, [id number], [id number] #### [facility] [address] [place] [address] Chloride [Moles/Vol] 108 mmol/L Normal 101-111 [facility] Comment on above: Order Comment: [facility] [place] [id number] 08/17/2023 14:55:04 EDT Performed By: #### 2 605045, [id number], [id number] #### [facility] [address] [place] [address] CO2 [Moles/Vol] 24 mmol/L Normal 21-31 [facility] Comment on above: Order Comment: [facility] [place] [email or web address] 08/17/2023 14:55:04 EDT Performed By: #### 2 579560, [id number], [id number] #### [facility] [address] [place] [address] Creatinine [Mass/Vol] 0.7 mg/dL Normal 0.5-1.3 [facility] Comment on above: Order Comment: [facility] [id number] 08/17/2023 14:55:04 EDT Performed By: #### 2 590166, [id number], [id number] #### [facility] [address] [place] [address] Globulin (S) [Mass/Vol] 3.4 g/dL Normal 1.4-4.0 [facility] Comment on above: Order Comment: [facility] [place] [id number] 08/17/2023 14:55:04 EDT Performed By: #### 2 705615, [id number], [id number] #### [facility] [address] [place] [address] Glucose [Mass/Vol] 315 mg/dL High 55-199 [facility] Comment on above: Order Comment: [facility] [place] [email or web address] 08/17/2023 14:55:04 EDT Result Comment: If t his glucose result represents a fasting glucose, interpretation should refer to the following reference range: 55-99 mg/dL Performed By: #### 2 989425, [id number], [id number] #### [facility] [address] [place] [address] Potassium [Moles/Vol] 4.5 mmol/L Normal 3.5-5.3 [facility] Comment on above: Order Comment: [facility] [place] [email or web address] 08/17/2023 14:55:04 EDT Performed By: #### 2 877346, [id number], [id number] #### [facility] [address] [place] [address] Protein [Mass/Vol] 7.6 g/dL Normal 6.0-7.8 [facility] Comment on above: Order Comment: [facility] [id number] 08/17/2023 14:55:04 EDT Performed By: #### 2 896502, [id number], [id number] #### [facility] [address] [place] [address] Sodium [Moles/Vol] 140 mmol/L Normal 135-145 [facility] Comment on above: Order Comment: [facility] [email or web address] 08/17/2023 14:55:04 EDT Performed By: #### 2 635891, [id number], [id number] #### [facility] [address] [place] [address] Urea nitrogen [Mass/Vol] 18 mg/dL Normal 5-21 [facility] Comment on above: Order Comment: [facility] [id number] 08/17/2023 14:55:04 EDT Performed By: #### 2 954652, [id number], [id number] #### [facility] [address] [place] [address] Urea nitrogen/Creatinin e [Mass ratio] 26 No Units High 10-20 [facility] Comment on above: Order Comment: [facility] [id number] 08/17/2023 14:55:04 EDT Performed By: #### 2 755508, [id number], [id number] #### [facility] [address] [place] [address] Lipid Panelon 08-17-2023 Cholesterol [Mass/Vol] 192 mg/dL Normal 120-200 [facility] Comment on above: Performed By: #### 2 656458, [id number], 3241062 #### [facility] [address] [place] [address] Cholesterol in HDL [Mass/Vol] 47 mg/dL Invalid Interpretation Code [facility] Comment on above: Result Comment: HDL > or equal to 60 mg/dL: Low cardiovascular risk HDL < 40 mg/dL : High cardiovascular risk Performed By: #### 2 718997, [id number], 4934107 #### [facility] [address] [place] [address] Cholesterol in LDL [Mass/Vol] 115 mg/dL Normal <=129 [facility] Comment on above: Performed By: #### 2 501361, [id number], [id number] #### [facility] [address] [place] [address] Cholesterol in VLDL [Mass/Vol] 43 mg/dL High 7-40 [facility] Comment on above: Performed By: #### 2 463847, [id number], [id number] #### [facility] [address] [place] [address] Triglyceride [Mass/Vol] 217 mg/dL High <=149 [facility] Comment on above: Performed By: #### 2 949647, [id number], [id number] #### [facility] [address] [place] [address] Nurse Consultation Noteon Nurse Consultation Note Reason for Visit Here for lab draw Assessment/Plan BMI 28.0-28.9,adult (Z68.28: Body mass index [BMI] 28.0-28.9, adult) Dysuria (R30.0: Dysuria) Hypercholesterolemia (E78.00: Pure hypercholesterolemia , unspecified) Overweight (E66.3: Overweight) Type 2 diabetes mellitus with complication (E11.8: Type 2 diabetes mellitus with unspecified complications) Medications aspirin 81 mg oral tablet, 81 mg= 1 tab(s), Oral, Daily atorvastatin 20 mg Tab, 20 mg= 1 tab(s), Oral, Daily, 1 refills Calcium 600+D, 1 tab, Oral, BID cetirizine 10 mg Tab, 10 mg= 1 tab(s), Oral, Daily, 1 refills Diflucan 150 mg Tab, 150 mg= 1 tab(s), Oral, Once Dosoquin, 1 tab, Oral, Daily Freestyle Irma Flash Glucose Monitoring 14 Day System (Sensor), See Instructions, 1 refills glipiZIDE 10 mg Tab, 10 mg= 1 tab(s), Oral, BID, 1 refills Glucophage XR 500 mg Tab-ER, 1000 mg= 2 tab(s), Oral, BID, 1 refills Ozempic 8 mg/3 mL (2 mg dose) subcutaneous solution, 2 mg, SubCutaneous, qWeek, 3 refills telmisartan 40 mg Tab, See Instructions Allergies Levaquin (Unknown) penicillin (Yeast infection) Immunizations Vaccine Date Status Comments SARS-CoV-2 (COVID-19) mRNAMUL.ORD![id number] 10/31/2022 Recorded influenza virus vaccine, inactivated 10/11/2022 Recorded SARS-CoV-2 (COVID-19) mRNA BNT-162b2 vax 10/19/2021 Recorded influenza virus vaccine, inactivated 09/10/2021 Recorded SARS-CoV-2 (COVID-19) mRNA BNT-162b2 vax 02/12/2021 Given Prophylaxis SARS-CoV-2 (COVID-19) mRNA BNT-162b2 vax 01/22/2021 Given Prophylaxis influenza virus vaccine, inactivated 09/09/2020 Recorded influenza virus vaccine, inactivated 11/15/2019 Recorded influenza virus vaccine, inactivated 09/17/2013 Recorded Normal [facility] eGFRon 08-17-2023 GFR/1.73 sq M.predicted among non-blacks MDRD (S/P/Bld) [Vol rate/Area] 95 mL/min/1.73 m2 Normal >=59 [facility] Comment on above: Order Comment: Order added by Discern Expert. Result Comment: [employer] cooper kidney disease could be indicated at eGFR's of less than 60 mL/min/1.73m2. Kidney failure is indicated at less than 15 mL/min/1.73m2. Performed By: #### 2 [id number], [id number], [id number] #### [facility] [address] [place] [address] MRI Shoulder w/o Contrast Geovany so 08-15-2023 MRI Shoulder w/o Contrast Right Exam Date/Time: 08/11/2023 16:51 EDT Reason for Exam: M75.41, M75.121, M75.01 Report IMPRESSION: Rotator cuff tendinosis without full-thickness tear. Intra-articular tendinosis and/or partial tearing of the long head biceps tendon. EXAMINATION: MRI Shoulder w/o Contrast Right HISTORY: Right shoulder pain with limited range of motion for 5 to 6 months TECHNIQUE: Routine non-contrast MRI of the shoulder , right side COMPARISON: Radiographs 03/07/2023. RESULT: Rotator Cuff Tendons: Mild to moderate tendinosis involving supraspinatus, infraspinatus, and subscapularis, without evidence for full-thickness tear, with small areas of interstitial tearing especially involving subscapularis and infraspinatus, and areas of reactive cystic change at the insertions. Teres minor appears intact. Long Head Biceps Tendon: Appropriately positioned with mild to moderate intra-articular tendinosis and/or partial tearing, without complete tear. Muscle: Muscle bulk and signal intensity are within normal limits. Labrum: Diffuse fraying/tearing. Bones and Marrow: No evidence of fracture or bone marrow replacing process. Glenohumeral Joint: Osteophytes with at least small areas of chondral loss. Small joint effusion. Acromioclavicular Joint: Mild to moderate degenerative changes. Other: No other significant abnormality. Ordering Provider: Henry Mcgowan FINAL REPORT Dictated: 08/15/2023 12:43 pm Johnny Sanchez MD. Signed (Electronic Signature): 08/15/2023 12:43 pm Signed by: Johnny Sanchez MD Transcribed by: LUCIA Technologist: MITCHEL Technical Comments None Normal [facility] Consent for Treatmenton 2 Consent for Treatment [id number] #1.00CD:127 Normal [facility] RAD - MRI Screening Formon 0 08-11-2023 RAD - MRI Screening Form [id number] 31#1.00CD:127 Normal [facility] Physician Orderon 08-07-2023 Physician Order [id number] #1.00CD:127 Normal [facility] CHEMISTRYOrdered By: Jen Yoder se on 08-02-2023 HbA1c (Bld) [Mass fraction] 12.2 % High <=5.9% [facility] [place] [facility] Consultation Noteon 08-02-20 Consultation Note [id number] 1#1.00CD:127 Normal [facility] [id number] 08-02-2023 HbA1c (Bld) [Mass fraction] 12.2 % High <=5.9 [facility] Comment on above: Performed By: #### 7 [id number] #### [facility] [address] [place] [address] Nurse Consultation Noteon Nurse Consultation Note Reason for Visit Here for lab draw Medications aspirin 81 mg oral tablet, 81 mg= 1 tab(s), Oral, Daily atorvastatin 20 mg Tab, 20 mg= 1 tab(s), Oral, Daily, 1 refills Calcium 600+D, 1 tab, Oral, BID cetirizine 10 mg Tab, 10 mg= 1 tab(s), Oral, Daily, 1 refills Diflucan 150 mg Tab, 150 mg= 1 tab(s), Oral, Once Dosoquin, 1 tab, Oral, Daily Freestyle Irma Flash Glucose Monitoring 14 Day System (Sensor), See Instructions, 1 refills glipiZIDE 10 mg Tab, 10 mg= 1 tab(s), Oral, BID, 1 refills Glucophage XR 500 mg Tab-ER, 1000 mg= 2 tab(s), Oral, BID, 1 refills Ozempic 8 mg/3 mL (2 mg dose) subcutaneous solution, 2 mg, SubCutaneous, qWeek, 3 refills telmisartan 40 mg Tab, See Instructions, 1 refills Allergies Levaquin (Unknown) penicillin (Yeast infection) Immunizations Vaccine Date Status Comments SARS-CoV-2 (COVID-19) mRNAMUL.[id number] 10/31/2022 Recorded influenza virus vaccine, inactivated 10/11/2022 Recorded SARS-CoV-2 (COVID-19) mRNA BNT-162b2 vax 10/19/2021 Recorded influenza virus vaccine, inactivated 09/10/2021 Recorded SARS-CoV-2 (COVID-19) mRNA BNT-162b2 vax 02/12/2021 Given Prophylaxis SARS-CoV-2 (COVID-19) mRNA BNT-162b2 vax 01/22/2021 Given Prophylaxis influenza virus vaccine, inactivated 09/09/2020 Recorded influenza virus vaccine, inactivated 11/15/2019 Recorded influenza virus vaccine, inactivated 09/17/2013 Recorded Normal [facility] Physician Referralon 023 Physician Referral [id number] 0#1.00CD:127 Normal [facility] Physician Referral [id number] 8#1.00CD:127 Normal [facility] Physician Referral [id number] 2#1.00CD:127 Normal [facility] Ambulatory Visit Summaryon 0 07-19-2023 Ambulatory Visit Summary KARLY CHOPRA :1955 Visit Date:07/19/2023 Ambulatory Visit Instructions Your Diagnosis Type 2 diabetes mellitus with complication Hypercholesterolemia Shoulder pain, right BMI 28.0-28.9,adult Overweight Dysuria Tests Performed Urnls Dip Stick Non-Auto w/o Micrscpy POC 44749 Your Care Team Attending Physician - Isra Gaxiola MD Primary Care Physician - Isra Gaxiola MD This Is Your Medications List semaglutide (Ozempic 8 mg/3 mL (2 mg dose) subcutaneous solution) Contact prescribing physician if questions or concerns Misc Prescription (Freestyle Irma Flash Glucose Monitoring 14 Day System (Sensor)) aspirin (aspirin 81 mg oral tablet) atorvastatin (atorvastatin 20 mg Tab) calcium-vitamin D (Calcium 600+D) cetirizine (cetirizine 10 mg Tab) fluconazole (Diflucan 150 mg Tab) glipiZIDE (glipiZIDE 10 mg Tab) metformin (Glucophage XR 500 mg Tab-ER) multivitamin (Dosoquin) telmisartan (telmisartan 40 mg Tab) Procedures Performed Colonoscopy (11/13/2018), Anterior and posterior repair (06/29/2018), bladder uplift (06/2018), Angioplasty of artery (12/14/2015), bypass graft right leg, Cyst removal right hand, excision of tumor left leg, Hysterectomy, Laparoscopic cholecystectomy. Discharge Vitals Temperature (Oral) 36.6 ?C Heart Rate (Peripheral) 88 Respiratory Rate 16 Blood Pressure 120/72 Height 172 cm Height 68 in Weight 84.1 kg Weight 185.02 lb BMI 28.43 What to do next Scheduled Follow-Up Appointments Monday 9:20 AM EDT Where: [facility] Invalid Interpretation Code [address] [place] [address]- \.br\ You Need to Complete the Following\.br\ Comprehensive Metabolic Panel, Blood, Routine collect, 07/19/23, Order for future visit, Lab Collect, Type 2 diabetes mellitus with complication [facility] Office/Clini c Noteon 07-19-2023 Family Medicine Office/Clinic Note HPI Staff Patient presents for 3 mos follow up dm and A1C due Do you have any of the following symptoms? Foot Exam: UTD Eye Exam: UTD Oct 2022 Last A1C: Hgb A1C %: 12.3 % High (04/24/23 12:09:00) Statin: atorvastatin 20mg flu vaccine: will do in Sep. questions/concerns: said you were to do ortho referral for her at last OV nothing documented but patient says it was discussed at last OV Thinks she might have a UTI once again UA in office documented in chart History of Present Illness - Here for follow up - R should pain: Pt states she did PT for this. Pain still present - BS are not controlled. She knows its her fault. She states she takes her medications, but eats whatever - Urine; Pt states she has urinary discomfort. Review of Systems PHQ Score Initial Depression Screen Score: 0 Physical Exam Vitals & Measurements T: 36.6 ?C(Oral) HR: 88(Peripheral) RR: 16 BP: 120/72 SpO2: 95% HT: 68 in HT: 172 cm WT: 84.1 kg WT: 185.02 lb BMI: 28.43 General: alert, no acute distress ENMT: oral mucosa moist, Cardiovascular: regular rate and rhythm, normal peripheral perfusion Respiratory: Lungs CTA, respirations non labored Extremities: no deformity, no trauma, Pain with movement on her R arm. Neurological: oriented x 4, LOC appropriate for age, CN II-XII intact, motor strength equal & normal bilaterally, speech normal Abdomen: Soft, Nontender, Non-distended, + BS Assessment/Plan 1. Type 2 diabetes mellitus with complication (E11.8: Type 2 diabetes mellitus with unspecified complications) - Will send to endo - Labs ordered - Pt may need insulin and discussed this in detail with the patient Ordered: Body Mass Index (BMI) documented 3008F Comprehensive Metabolic Panel Current tobacco non-user 1036F Depression Screening Negative 3352F [facility] [place] [facility] [place] [facility] [place] Ambulatory Referral HgbA1c Influenza immunization status assessed 1030F Lipid Panel Most recent diastolic blood pressure <80 mm Hg 3078F Patient screen for fall risk: no falls in last year or 1 fall with no injury in last year 1101F Systolic BP <130 mm Hg (Most Recent) 3074F Urnls Dip Stick Non-Auto w/o Micrscpy POC 04680 2. Hypercholesterolemia (E78.00: Pure hypercholesterolemia , unspecified) - Labs ordered Ordered: Body Mass Index (BMI) documented 3008F Comprehensive Metabolic Panel Current tobacco non-user 1036F Depression Screening Negative 3352F [facility] [place] [facility] [place] Ref[place] [facility] [place] Ambulatory Referral HgbA1c Influenza immunization status assessed 1030F Lipid Panel Most recent diastolic blood pressure <80 mm Hg 3078F Patient screen for fall risk: no falls in last year or 1 fall with no injury in last year 1101F Systolic BP <130 mm Hg (Most Recent) 3074F 3. Shoulder pain, right (M25.511: Pain in right shoulder) - Will send to ortho as patient has already been to PT - Pt had no improvement Ordered: Body Mass Index (BMI) documented 3008F Current tobacco non-user 1036F Depression Screening Negative 3352F [facility] [place] Ref[place] Influenza immunization status assessed 1030F Most recent diastolic blood pressure <80 mm Hg 3078F Patient screen for fall risk: no falls in last year or 1 fall with no injury in last year 1101F Systolic BP <130 mm Hg (Most Recent) 3074F 4. BMI 28.0-28.9,adult (Z68.28: Body mass index [BMI] 28.0-28.9, adult) - BMI education given Ordered: Body Mass Index (BMI) documented 3008F Comprehensive Metabolic Panel Current tobacco non-user 1036F Depression Screening Negative 3352F [facility] [place] [facility] [place]ulatory Ref[place] [facility] [place] Ambulatory Referral HgbA1c Influenza immunization status assessed 1030F Lipid Panel Most recent diastolic blood pressure <80 mm Hg 3078F Patient screen for fall risk: no falls in last year or 1 fall with no injury in last year 1101F Systolic BP <130 mm Hg (Most Recent) 3074F 5. Overweight (E66.3: Overweight) - As above Ordered: Body Mass Index (BMI) documented 3008F Comprehensive Metabolic Panel Current tobacco non-user 1036F Depression Screening Negative 3352F [facility] [place] [facility] [place] Ambulatory Referral [facility] [place] Ambulatory Referral HgbA1c Influenza immunization status assessed 1030F Lipid Panel Most recent diastolic blood pressure <80 mm Hg 3078F Patient screen for fall risk: no falls in last year or 1 fall with no injury in last year 1101F Systolic BP <130 mm Hg (Most Recent) 3074F 6. Dysuria (R30.0: Dysuria) - Will do a U/A and treat if needed - Urology consulted as this has been a very recurrent thing. Ordered: Body Mass Index (BMI) documented 3008F Comprehensive Metabolic Panel Current tobacco non-user 1036F Depression Screening Negative 3352F [facility] [place] Ref[place] [facility] [place] Ambulatory Referral (more content not included)... Normal [facility] Comment on above: Result Comment: Elec tronically Signed By: Minor THOMAS, Isra Wilkins\.otto\Date and Time Signed: 07/19/23 14:48 EDT Ambulatory Visit Summaryon 0 06-26-2023 Ambulatory Visit Summary KARLY CHOPRA :1955 Visit Date:06/26/2023 Ambulatory Visit Instructions Your Diagnosis BMI 28.0-28.9,adult Over weight UTI symptoms Tests Performed Urnls Dip Stick Non-Auto w/o Micrscpy POC 14413 Your Care Team Attending Physician - Isra Gaxiola MD Primary Care Physician - Isra Gaxiola MD This Is Your Medications List [facility] [place] Prescription (Freestyle Irma Flash Glucose Monitoring 14 Day System (Sensor)) aspirin (aspirin 81 mg oral tablet) atorvastatin (atorvastatin 20 mg Tab) calcium-vitamin D (Calcium 600+D) cetirizine (cetirizine 10 mg Tab) fluconazole (fluconazole 150 mg Tab) glipiZIDE (glipiZIDE 10 mg Tab) metformin (Glucophage XR 500 mg Tab-ER) multivitamin (Dosoquin) semaglutide (semaglutide 8 mg/3 mL (2 mg dose) subcutaneous solution) telmisartan (telmisartan 40 mg Tab) Procedures Performed Colonoscopy (11/13/2018), Anterior and posterior repair (06/29/2018), bladder uplift (06/2018), Angioplasty of artery (12/14/2015), bypass graft right leg, Cyst removal right hand, excision of tumor left leg, Hysterectomy, Laparoscopic cholecystectomy. Discharge Vitals Temperature (Oral) 36.6 ?C Heart Rate (Peripheral) 90 Respiratory Rate 16 Blood Pressure 130/76 Height 172 cm Height 68 in Weight 84.8 kg Weight 186.56 lb BMI 28.66 What to do next Scheduled Follow-Up Appointments Monday 2:20 PM EDT With: Isra Gaxiola MD Where: [address] [address]- \.br\ Medications\.br\ What How Much When Why Instructions\.br\ Unchanged aspirin (aspirin 81 mg oral tablet) 1 Tablets By Mouth Every day\.br\ Unchanged atorvastatin (atorvastatin 20 mg Tab) 1 Tablets By Mouth Every day\.br\ Unchanged calcium-vitamin D (Calcium 600+D) 1 tab By Mouth 2 times a day\.br\ Unchanged cetirizine (cetirizine 10 mg Tab) 1 Tablets By Mouth Every day\.br\ Unchanged fluconazole (fluconazole 150 mg Tab) See instructions TAKE 1 TABLET BY MOUTH FOR A 1 TIME DOSE \.br\ Unchanged glipiZIDE (glipiZIDE 10 mg Tab) 1 Tablets By Mouth 2 times a day\.br\ Unchanged metformin (Glucophage XR 500 mg Tab-ER) 2 Tablets By Mouth 2 times a day Type 2 diabetes mellitus without complication, without long-term current use of insulin Hypercholesterolemia Chronic fatigue Neurologic disorder associated with diabetes mellitus Peripheral vascular disease Atherosclerosis of [place] arteries of extremities with intermittent claudication, right leg Former smoker BMI 31.0-31.9,adult\.br\ Unchanged Misc Prescription (Freestyle Irma Flash Glucose Monitoring 14 Day System (Sensor)) See instructions Type 2 diabetes mellitus without complication, without long-term current use of insulin Hypercholesterolemia Chronic fatigue Neurologic disorder associated with diabetes mellitus Peripheral vascular disease Atherosclerosis of [place] arteries of extremities with intermittent claudication, right leg Former smoker BMI 31.0-31.9,adult Freestyle Irma Flash Glucose Monitoring 14 Day System (Sensor). Replace sensor every 14 days. \.br\ Unchanged multivitamin (Dosoquin) 1 tab By Mouth Every day\.br\ Unchanged semaglutide (semaglutide 8 mg/ 3 mL (2 mg dose) subcutaneous solution) 2 Milligram Subcutaneous Every week\.br\ Unchanged telmisartan (telmisartan 40 mg Tab) See instructions Take one half tab po daily \.br\ Test Results\.br\ Urnls Dip Stick Non-Auto w/o Micrscpy POC 21479 (06/26/2023)\.br\ Bilirubin Urine Dipstick - Negative\.br\ Blood Urine Dipstick - 2+ Moderate\.br\ Glucose Urine Dipstick - 3+ 1000 mg/dl\.br\ Ketones Urine Dipstick - Negative\.br\ Leukocytes Urine Dipstick - 1+ Small\.br\ Nitrite Urine Dipstick - Positive\.br\ Protein Urine Dipstick - Negative\.br\ Specific [place] Urine Dipstick - 1.020\.br\ Urine Appearance Urine Dipstick - Cloudy\.br\ Urine Color Urine Dipstick - Light yellow\.br\ Urobilinogen Urine Dipstick - Normal 0.2-1 EU/dl\.br\ pH Urine Dipstick - 5\.br\ Allergies\.br\ Levaquin (Unknown)\.br\ penicillin (Yeast infection)\.br\ Problems\.br\ Ongoing - Any problem that you are currently receiving treatment for.\.br\ Atherosclerosis of [place] arteries of extremities with intermittent claudication, right leg\.br\ Cervical radiculopathy\.br\ Disorder of adrenal gland\.br\ Dysuria\.br\ Hypercholesterolemia\ .br\ Lumbar strain\.br\ Neurologic disorder associated with diabetes mellitus\.br\ Peripheral vascular disease\.br\ Spinal stenosis of lumbar region\.br\ Steatosis of liver\.br\ Type 2 diabetes mellitus with complication\.br\ UTI symptoms\.br\ Venous insufficiency of leg\.br\ Historical - Any problem that you are no longer receiving treatment for.\.br\ Hyperlipemia\.br\ Hypertension\.br\ \.br\ [facility] Family Medicine Office/Clini c Noteon 06-26-2023 Family Medicine Office/Clinic Note Chief Complaint UTI HPI Staff Karly is a 68 year old female presenting for Urinary symptoms Onset: couple weeks ago Symptoms: itch, swells in the labia when she urinates, odor OTC used: nothing, increased water Last UTI: 05/30/23 Hx of kidney stones: no UA in office documented in chart hasn't had her shot in 3 weeks, it was ordered wrong but I thought that was corrected. ordered the 2mg and ordered 1.7mg which isn't right per pharmacy History of Present Illness - Per staff HPI Review of Systems PHQ Score Initial Depression Screen Score: 0 Physical Exam Vitals & Measurements T: 36.6 ?C(Oral) HR: 90(Peripheral) RR: 16 BP: 130/76 SpO2: 97% HT: 68 in HT: 172 cm WT: 84.8 kg WT: 186.56 lb BMI: 28.66 General: alert, no acute distress ENMT: oral mucosa moist, Cardiovascular: regular rate and rhythm, normal peripheral perfusion Respiratory: Lungs CTA, respirations non labored Extremities: no deformity, no trauma Neurological: oriented x 4, LOC appropriate for age, CN II-XII intact, motor strength equal & normal bilaterally, speech normal Abdomen: Soft, Nontender, Non-distended, + BS Assessment/Plan 1. UTI symptoms (R39.9: Unspecified symptoms and signs involving the genitourinary system) - Will treat today. - Follow up PRN Ordered: Urnls Dip Stick Non-Auto w/o Micrscpy POC 63809 2. Type 2 diabetes mellitus with complication (E11.8: Type 2 diabetes mellitus with unspecified complications) - Meds sent. Pt to [facility] 3. BMI 28.0-28.9,adult (Z68.28: Body mass index [BMI] 28.0-28.9, adult) - BMI education given. Ordered: Body Mass Index (BMI) documented 3008F Current tobacco non-user 1036F Depression Screening Negative 3352F Influenza immunization administered or previously received 4274F Most recent diastolic blood pressure <80 mm Hg 3078F Patient screen for fall risk: no falls in last year or 1 fall with no injury in last year 1101F Systolic BP 130-139 mm Hg (Most Recent) 3075F 4. Over weight (E66.3: Overweight) - As above. Ordered: Body Mass Index (BMI) documented 3008F Current tobacco non-user 1036F Depression Screening Negative 3352F Influenza immunization administered or previously received 4274F Most recent diastolic blood pressure <80 mm Hg 3078F Patient screen for fall risk: no falls in last year or 1 fall with no injury in last year 1101F Systolic BP 130-139 mm Hg (Most Recent) 3075F Follow-up No qualifying data available Problem List/Past Medical History Ongoing Atherosclerosis of [place] arteries of extremities with intermittent claudication, right leg Cervical radiculopathy Disorder of adrenal gland Dysuria Hypercholesterolemia Lumbar strain Neurologic disorder associated with diabetes mellitus Peripheral vascular disease Spinal stenosis of lumbar region Steatosis of liver Type 2 diabetes mellitus with complication UTI symptoms Venous insufficiency of leg Historical Hyperlipemia Hypertension Procedure/Surgical History Colonoscopy (11/13/2018), Anterior and posterior repair (06/29/2018), bladder uplift (06/2018), Angioplasty of artery (12/14/2015), bypass graft right leg, Cyst removal right hand, excision of tumor left leg, Hysterectomy, Laparoscopic cholecystectomy. Medications aspirin 81 mg oral tablet, 81 mg= 1 tab(s), Oral, Daily atorvastatin 20 mg Tab, 20 mg= 1 tab(s), Oral, Daily, 1 refills Calcium 600+D, 1 tab, Oral, BID cetirizine 10 mg Tab, 10 mg= 1 tab(s), Oral, Daily, 1 refills Dosoquin, 1 tab, Oral, Daily fluconazole 150 mg Tab, See Instructions, 10 refills Freestyle Irma Flash Glucose Monitoring 14 Day System (Sensor), See Instructions, 1 refills glipiZIDE 10 mg Tab, 10 mg= 1 tab(s), Oral, BID, 1 refills Glucophage XR 500 mg Tab-ER, 1000 mg= 2 tab(s), Oral, BID, 1 refills semaglutide 8 mg/3 mL (2 mg dose) subcutaneous solution, 2 mg, SubCutaneous, qWeek telmisartan 40 mg Tab, See Instructions, 1 refills Allergies Levaquin (Unknown) penicillin (Yeast infection) Social History Alcohol - Denies Alcohol Use, 08/04/2013 Household alcohol concerns: No., 05/17/2023 Substance Abuse - Denies Substance Abuse, 08/04/2013 Tobacco - Denies Tobacco Use, 06/15/2018 Former smoker, quit more than 30 days ago Tobacco Use:. Never Smokeless Tobacco Use:. Cigarettes, Started age 16.0 Years. Stopped age 63 Years. Household tobacco concerns: No., 06/26/2023 Family History Congenital heart disease: Mother and Father. Diabetes mellitus: Father. Immunizations Vaccine Date Status Comments SARS-CoV-2 (COVID-19) [id number] 10/31/2022 Recorded influenza virus vaccine, inactivated 10/11/2022 Recorded SARS-CoV-2 (COVID-19) mRNA BNT-162b2 vax 10/19/2021 Recorded influenza virus vaccine, inactivated 09/10/2021 Recorded SARS-CoV-2 (COVID-19) mRNA BNT-162b2 vax 02/12/2021 Given Prophylaxis SARS-CoV-2 (COVID-19) mRNA BNT-162b2 vax 01/22/2021 Given Prophylaxis influenza virus vaccine, inactivat (more content not included)... Normal [facility] Comment on above: Result Comment: Elec tronically Signed By: Minor THOMAS, Isra Brownlee\Date and Time Signed: 06/26/23 18:25 EDT PT - Assessmentson 3 PT - Assessments [id number] Normal [facility] Family Medicine Office/Clini c Noteon 06-13-2023 Family Medicine Office/Clinic Note Chief Complaint Pt C/O Cough, congestion, vishal ear pain x 2 days. History of Present Illness 68 y/o female presents to the office for nasal congestion, ear pain, and cough. Has tried tylenol and it did not help. URI Symptoms: Onset: 2 days Cough: yes, non productive Fever: No Chills: no Nasal Congestion/Discharge : yes, unsure of color Sore throat: no Ear ache: yes, both Headache: no SOB/Wheezing: no NVD/Stomach ache: no decreased appetite: yes Patient has no other questions or concerns at this time. Review of Systems PHQ Score Initial Depression Screen Score: 0 Negative unless stated in HPI. Physical Exam Vitals & Measurements HR: 89(Peripheral) RR: 16 BP: 110/60 SpO2: 97% HT: 68 in HT: 172 cm WT: 83.7 kg WT: 184.14 lb BMI: 28.29 General: Well hydrated, no apparent distress Head: Normocephalic atraumatic Eyes: EOMI, sclera clear Ears: Bilateral tympanic membranes pearly malcolm with good cone of light, fluid line present bilaterally Nose: pale and swollen turbinates Mouth: Mucous membranes moist. Normal oropharynx, posterior pharynx without lesion or exudate. Tongue normal. Neck: No cervical lymphadenopathy Lungs: Lungs clear to auscultation Cardio: Regular rate and rhythm with no murmur Mental status: Alert and oriented x3. Appropriate mood and affect. Assessment/Plan 1. Other allergic rhinitis (J30.89: Other allergic rhinitis) Rx for cetirizine sent to local pharmacy. Instructed to take daily. If insurance does not cover can be purchased over the counter. Recommended can also try Flonase or Nasacort spray daily to help with sinus congestion. Advised to contact the office if symptoms do not begin to improve after one week. 2. BMI 28.0-28.9,adult (Z68.28: Body mass index [BMI] 28.0-28.9, adult) The standard range for ages 18 and older is >=18.5 and < 25 kg/m2. Your BMI today was above this range, this falls in the overweight to obese category and there are medical benefits to weight loss. We can offer counselling, referral, and/or medical support in addressing this problem. Your BMI and weight management will be followed at subsequent visits. 3. Overweight (E66.3: Overweight) See #2 Orders: cephalexin, 500 mg = 1 cap(s), Oral, q12hr, # 10 cap(s), Refills(s) 0, Pharmacy: [facility]/pharmacy #[id number], 169, cm, 05/30/23 17:03:00 EDT, Height/Length Dosing, 94.8, kg, 05/30/23 17:03:00 EDT, Weight Dosing Patient verbalized understanding and is agreeable to plan and course of treatment. This documentation was completed by voice-activated device and software. Inaccuracies compared to the original dictation of this provider are possible although this document has been overread and corrected. Follow-up With When Contact Information Minor THOMAS, Isra Wilkins, [facility], [facility] Additional Instructions: Appointment has already been scheduled Patient Education Budget-Friendly Healthy Eating Allergic Rhinitis, Adult Problem List/Past Medical History Ongoing Atherosclerosis of [place] arteries of extremities with intermittent claudication, right leg Cervical radiculopathy Disorder of adrenal gland Dysuria Hypercholesterolemia Lumbar strain Neurologic disorder associated with diabetes mellitus Peripheral vascular disease Spinal stenosis of lumbar region Steatosis of liver Type 2 diabetes mellitus with complication UTI symptoms Venous insufficiency of leg Historical Hyperlipemia Hypertension Procedure/Surgical History Colonoscopy (11/13/2018), Anterior and posterior repair (06/29/2018), bladder uplift (06/2018), Angioplasty of artery (12/14/2015), bypass graft right leg, Cyst removal right hand, excision of tumor left leg, Hysterectomy, Laparoscopic cholecystectomy. Medications aspirin 81 mg oral tablet, 81 mg= 1 tab(s), Oral, Daily atorvastatin 20 mg Tab, 20 mg= 1 tab(s), Oral, Daily, 1 refills Calcium 600+D, 1 tab, Oral, BID cetirizine 10 mg Tab, 10 mg= 1 tab(s), Oral, Daily, 1 refills Dosoquin, 1 tab, Oral, Daily fluconazole 150 mg Tab, See Instructions, 10 refills Freestyle Irma Flash Glucose Monitoring 14 Day System (Sensor), See Instructions, 1 refills glipiZIDE 10 mg Tab, 10 mg= 1 tab(s), Oral, BID, 1 refills Glucophage XR 500 mg Tab-ER, 1000 mg= 2 tab(s), Oral, BID, 1 refills Ozempic 8 mg/3 mL (2 mg dose) subcutaneous solution, 1.5 mg, SubCutaneous, qWeek telmisartan 40 mg Tab, See Instructions, 1 refills Allergies Levaquin (Unknown) penicillin (Yeast infection) Social History Alcohol - Denies Alcohol Use, 08/04/2013 Household alcohol concerns: No., 05/17/2023 Substance Abuse - Denies Substance Abuse, 08/04/2013 Tobacco - Denies Tobacco Use, 06/15/2018 Former smoker, quit more than 30 days ago Tobacco Use:. Never Smokeless Tobacco Use:. Cigarettes, Started age 16.0 Years. Stopped age 63 Years. Household tobacco concerns: No., 06/07/2023 Family History Congenital heart disease: Mother and Father. Diabetes mellitus: Father. Immunizations Vaccine Date Sta (more content not included)... Normal [facility] Comment on above: Result Comment: Elec tronically Signed By: Gucci STARK, Elizabeth Wilkins\.br\Date and Time Signed: 06/12/23 23:53 EDT Patient Educationon 06-13-20 Patient Education Immunology Allergic Rhinitis, Adult Allergic rhinitis is an allergic reaction that affects the mucous membrane inside the nose. The mucous membrane is the tissue that produces mucus. There are two types of allergic rhinitis: ? Seasonal. This type is also called hay fever and happens only during certain seasons. ? Perennial. This type can happen at any time of the year. Allergic rhinitis cannot be spread from person to person. This condition can be mild, moderate, or severe. It can develop at any age and may be outgrown. What are the causes? This condition is caused by allergens. These are things that can cause an allergic reaction. Allergens may differ for seasonal allergic rhinitis and perennial allergic rhinitis. ? Seasonal allergic rhinitis is triggered by pollen. Pollen can come from grasses, trees, and weeds. ? Perennial allergic rhinitis may be triggered by: ? Dust mites. ? Proteins in a pet's urine, saliva, or dander. Dander is skin cells from a pet. ? Smoke, mold, or car fumes. What increases the risk? You are more likely to develop this condition if you have a family history of allergies or other conditions related to allergies, including: ? Allergic conjunctivitis. This is inflammation of parts of the eyes and eyelids. ? Asthma. This condition affects the lungs and makes it hard to breathe. ? Atopic dermatitis or eczema. This is longterm (chronic) inflammation of the skin. ? Food allergies. What are the signs or symptoms? Symptoms of this condition include: ? Sneezing or coughing. ? A stuffy nose (nasal congestion), itchy nose, or nasal discharge. ? Itchy eyes and tearing of the eyes. ? A feeling of mucus dripping down the back of your throat (postnasal drip). ? Trouble sleeping. ? Tiredness or fatigue. ? Headache. ? Sore throat. How is this diagnosed? This condition may be diagnosed with your symptoms, medical history, and physical exam. Your health care provider may check for related conditions, such as: ? Asthma. ? [place] eye. This is eye inflammation caused by infection (conjunctivitis). ? Ear infection. ? Upper respiratory infection. This is an infection in the nose, throat, or upper airways. You may also have tests to find out which allergens trigger your symptoms. These may include skin tests or blood tests. How is this treated? There is no cure for this condition, but treatment can help control symptoms. Treatment may include: ? Taking medicines that block allergy symptoms, such as corticosteroids and antihistamines. Medicine may be given as a shot, nasal spray, or pill. ? Avoiding any allergens. ? Being exposed again and again to tiny amounts of allergens to help you build a defense against allergens (immunotherapy). This is done if other treatments have not helped. It may include: ? Allergy shots. These are injected medicines that have small amounts of allergen in them. ? Sublingual immunotherapy. This involves taking small doses of a medicine with allergen in it under your tongue. If these treatments do not work, your health care provider may prescribe newer, stronger medicines. Follow these instructions at home: Avoiding allergens Find out what you are allergic to and avoid those allergens. These are some things you can do to help avoid allergens: ? If you have perennial allergies: ? Replace carpet with wood, tile, or vinyl greg. Carpet can trap dander and dust. ? Do not smoke. Do not allow smoking in your home. ? Change your heating and air conditioning filters at least once a month. ? If you have seasonal allergies, take these steps during allergy season: ? Keep windows closed as much as possible. ? Plan outdoor activities when pollen counts are lowest. Check pollen counts before you plan outdoor activities. ? When coming indoors, change clothing and shower before sitting on furniture or bedding. ? If you have a pet in the house that produces allergens: ? Keep the pet out of the bedroom. ? Vacuum, sweep, and dust regularly. General instructions ? Take [id number] and prescription medicines only as told by your health care provider. ? Drink enough fluid to keep your urine pale yellow. ? Keep all follow-up visits as told by your health care provider. This is important. Where to find more information ? [place] [employer]: www.aaaai.org Contact a health care provider if: ? You have a fever. ? You develop a cough that does not go away. ? You make whistling sounds when you breathe (wheeze). ? Your symptoms slow you down or stop you from doing your normal activities each day. Get help right away if: ? You have shortness of breath. This symptom may represent a serious problem that is an emergency. Do not wait to see if the symptom will go away. Get medical help right away. Call your local emergency services (911 in the [place] Do not drive yourself to the hospital. Summ (more content not included)... Normal [facility] Ambulatory Visit Summaryon 0 06-07-2023 Ambulatory Visit Summary KARLY CHOPRA :1955 Visit Date:06/07/2023 Ambulatory Visit Instructions Your Care Team Attending Physician - Gucci STARK, Elizabeth Alvarez. Primary Care Physician - Isra Gaxiola MD. This Is Your Medications List [facility] Prescription (Freestyle Irma Flash Glucose Monitoring 14 Day System (Sensor)) aspirin (aspirin 81 mg oral tablet) atorvastatin (atorvastatin 20 mg Tab) calcium-vitamin D (Calcium 600+D) cephalexin (Keflex 500 mg Cap) cetirizine (cetirizine 10 mg Tab) fluconazole (fluconazole 150 mg Tab) glipiZIDE (glipiZIDE 10 mg Tab) metformin (Glucophage XR 500 mg Tab-ER) multivitamin (Dosoquin) semaglutide (Ozempic (1 mg dose) 4 mg/3 mL subcutaneous solution) semaglutide (semaglutide 1.7 mg/0.75 mL (1.7 mg dose) subcutaneous solution) telmisartan (telmisartan 40 mg Tab) Procedures Performed Colonoscopy (11/13/2018), Anterior and posterior repair (06/29/2018), bladder uplift (06/2018), Angioplasty of artery (12/14/2015), bypass graft right leg, Cyst removal right hand, excision of tumor left leg, Hysterectomy, Laparoscopic cholecystectomy. Discharge Vitals Heart Rate (Peripheral) 89 Respiratory Rate 16 Blood Pressure 110/60 Height 172 cm Height 68 in Weight 83.7 kg Weight 184.14 lb BMI 28.29 What to do next Scheduled Follow-Up Appointments Monday 7:30 AM EDT With: Where: [facility] Monday 1:00 PM EDT With: Where: [facility] Monday 11:00 AM EDT With: Where: [facility] 2022 8:30 AM EDT With: Where: [facility] Monday 2:20 PM EDT With: Isra Gaxiola MD Where: [address] \.br\ You Need to Schedule the Following Appointments\.br\ Follow Up with Isra Gaxiola MD, [facility], MED When: \.br\ Comments:\.br\ Appointment has already been scheduled\.br\ Where:\.br\ Medications\.br\ What How Much When Why Instructions\.br\ New cetirizine (cetirizine 10 mg Tab) 1 Tablets By Mouth Every day Refills: 1 Pickup at [facility]/pharmacy #[id number]\.br\ Unchanged aspirin (aspirin 81 mg oral tablet) 1 Tablets By Mouth Every day\.br\ Unchanged atorvastatin (atorvastatin 20 mg Tab) 1 Tablets By Mouth Every day\.br\ Unchanged calcium-vitamin D (Calcium 600+D) 1 tab By Mouth 2 times a day\.br\ Unchanged cephalexin (Keflex 500 mg Cap) 1 Capsules By Mouth Every 12 hours\.br\ Unchanged fluconazole (fluconazole 150 mg Tab) See instructions TAKE 1 TABLET BY MOUTH FOR A 1 TIME DOSE \.br\ Unchanged glipiZIDE (glipiZIDE 10 mg Tab) 1 Tablets By Mouth 2 times a day\.br\ Unchanged metformin (Glucophage XR 500 mg Tab-ER) 2 Tablets By Mouth 2 times a day Type 2 diabetes mellitus without complication, without long-term current use of insulin Hypercholesterolemia Chronic fatigue Neurologic disorder associated with diabetes mellitus Peripheral vascular disease Atherosclerosis of [place] arteries of extremities with intermittent claudication, right leg Former smoker BMI 31.0-31.9,adult\.br\ Unchanged Misc Prescription (Freestyle Irma Flash Glucose Monitoring 14 Day System (Sensor)) See instructions Type 2 diabetes mellitus without complication, without long-term current use of insulin Hypercholesterolemia Chronic fatigue Neurologic disorder associated with diabetes mellitus Peripheral vascular disease Atherosclerosis of [place] arteries of extremities with intermittent claudication, right leg Former smoker BMI 31.0-31.9,adult Freestyle Irma Flash Glucose Monitoring 14 Day System (Sensor). Replace sensor every 14 days. \.br\ Unchanged multivitamin (Dosoquin) 1 tab By Mouth Every day\.br\ Unchanged semaglutide (Ozempic (1 mg dose) 4 mg/ 3 mL subcutaneous solution) 1 Milligram Subcutaneous Every week\.br\ Unchanged semaglutide (semaglutide 1.7 mg/ 0.75 mL (1.7 mg dose) subcutaneous solution) 1.7 Milligram Subcutaneous Every week\.br\ Unchanged telmisartan (telmisartan 40 mg Tab) See instructions Take one half tab po daily \.br\ Pharmacy Information\.br\ [facility]/pharmacy #[id number]: [address], [place] [phone]\.br\ Allergies\.br\ Levaquin (Unknown)\.br\ penicillin (Yeast infection)\.br\ Problems\.br\ Ongoing - Any problem that you are currently receiving treatment for.\.br\ Atherosclerosis of [place] arteries of extremities with intermittent claudication, right leg\.br\ Cervical radiculopathy\.br\ Disorder of adrenal gland\.br\ Dysuria\.br\ Hypercholesterolemia\ .br\ Lumbar strain\.br\ Neurologic disorder associated with diabetes mellitus\.br\ Peripheral vascular disease\.br\ Spinal stenosis of lumbar region\.br\ Steatosis of liver\.br\ Type 2 diabetes mellitus with complication\.br\ UTI symptoms\.br\ Venous insufficiency of leg\.br\ Historical - Any problem that you are no longer receiving treatment for.\.br\ Hyperlipemia\.br\ Hypertension\.br\ \.br\ [facility] C Urineon 06-02-2023 Bacteria identified Cx Nom (U) Microbiology PROCEDURE: Urine Culture [R1] SOURCE: U CleanCatch BODY SITE: COLLECTED DATE/TIME: 05/30/2023 17:09 EDT RECEIVED DATE/TIME: 05/31/2023 18:27 EDT START DATE/TIME: 05/31/2023 18:27 EDT FREE TEXT SOURCE: Minor THOMAS, Isra Gaxiola MD, Isra Wilkins FINAL REPORTS Final Report [] Verified Date/Time: 06/02/2023 10:37 EDT 70,000 cfu/ml Escherichia coli SUSCEPTIBILITY RESULTS LEGEND: S=Susceptible, N/R=Not Reported, Blank=Data not available, or drug not advisable or tested, I=Intermediate, ESBL=Extended spectrum beta-lactamase, R=Resistant, TFG=Thymidine-depend ent strain, AMANDO=Beta-lactamase positive, LINNETTE=mcg/m;(mg/L), S*=Predicted susceptible interp, R*=Predicted resistant interp EC Antibiotic LINNETTE Dilutn LINNETTE Interp Amikacin <=16 S Ampicillin >16 R Ampicillin/ <=8/4 S Sulbactam Aztreonam <=4 S Cefazolin <=2 S Cefepime <=2 S Cefoxitin <=8 S Ceftazidime <=1 S Ceftazidime/ <=8 S Avibactam Ceftriaxone <=1 S Ciprofloxacin <=1 S Ertapenem <=0.5 S Gentamicin <=4 S Levofloxacin <=2 S Meropenem <=1 S Nitrofurantoin <=32 S Piperacillin/ <=16 S Tazobactam Tetracycline <=4 S Tigecycline <=2 S Tobramycin <=4 S Trimethoprim/ <=2/38 S Sulfa Performing Locations R1: This test was performed at: [facility], [address] [place] [address], [id number] , , Normal [facility] Comment on above: Performed By: #### [id number] ####[facility] [id number] [place] [address] PT - Home Exercise Programon 06-01-2023 PT - Home Exercise Program [id number] 5#1.00CD:127 Normal [facility] Family Medicine Office/Clini c Noteon 05-30-2023 Family Medicine Office/Clinic Note Chief Complaint possible UTI HPI Staff patient presents for possible UTI/yeast infection Sunni order fluconzaole for her on Saturday 05/26 due to patient couldn't see Sunni due to the time she had transportation available Dysuria: Onset: a week ago Symptoms: itching and little puffy and she bleeds after urinating and strong odor OTC used: Sunni rxed fluconazole on monday for her and it's better Last UTI: 04/24/23 Hx of kidney stones: no UA in office documented in chart questions/concerns: needs the 1.7 semagutide refilled to [facility], [facility] care never got it and then local got it but was only the 1mg History of Present Illness - See staff HPI Review of Systems PHQ Score Initial Depression Screen Score: 1 Physical Exam Vitals & Measurements T: 36.8 ?C(Oral) HR: 84(Peripheral) RR: 14 BP: 138/80 SpO2: 98% HT: 67 in HT: 169 cm WT: 94.8 kg WT: 208.56 lb BMI: 33.19 General: alert, no acute distress ENMT: oral mucosa moist, Cardiovascular: regular rate and rhythm, normal peripheral perfusion Respiratory: Lungs CTA, respirations non labored Extremities: no deformity, no trauma Neurological: oriented x 4, LOC appropriate for age, CN II-XII intact, motor strength equal & normal bilaterally, speech normal Abdomen: Soft, Nontender, Non-distended, + BS Assessment/Plan 1. UTI symptoms (R39.9: Unspecified symptoms and signs involving the genitourinary system) - Will do ucx - Will do Abx and diflucan - Test of cure symptoms continue 2. Hematuria (R31.9: Hematuria, unspecified) - As above Ordered: Urine Culture Urnls Dip Stick Non-Auto w/o Micrscpy POC 38429 3. BMI 33.0-33.9,adult (Z68.33: Body mass index [BMI] 33.0-33.9, adult) - BMI education given. Ordered: Body Mass Index (BMI) documented 3008F Current tobacco non-user 1036F Depression Screening Negative 3352F Influenza immunization administered or previously received 4274F Most recent diastolic blood pressure 80-89 mm Hg 3079F Patient screen for fall risk: no falls in last year or 1 fall with no injury in last year 1101F Systolic BP 130-139 mm Hg (Most Recent) 3075F 4. Class 1 obesity due to excess calories in adult (E66.09: Other obesity due to excess calories) Ordered: Body Mass Index (BMI) documented 3008F Current tobacco non-user 1036F Depression Screening Negative 3352F Influenza immunization administered or previously received 4274F Most recent diastolic blood pressure 80-89 mm Hg 3079F Patient screen for fall risk: no falls in last year or 1 fall with no injury in last year 1101F Systolic BP 130-139 mm Hg (Most Recent) 3075F Orders: cephalexin, 500 mg = 1 cap(s), Oral, q12hr, # 10 cap(s), Refills(s) 0, Pharmacy: [facility]/pharmacy #[id number], 169, cm, 05/30/23 17:03:00 EDT, Height/Length Dosing, 94.8, kg, 05/30/23 17:03:00 EDT, Weight Dosing fluconazole, See Instructions, TAKE 1 TABLET BY MOUTH FOR A 1 TIME DOSE, # 1 tab(s), Refills(s) 10, Pharmacy: [facility]/pharmacy #[id number], 169, cm, 05/30/23 17:03:00 EDT, Height/Length Dosing, 94.8, kg, 05/30/23 17:03:00 EDT, Weight Dosing Follow-up No qualifying data available Problem List/Past Medical History Ongoing Atherosclerosis of [place] arteries of extremities with intermittent claudication, right leg Cervical radiculopathy Disorder of adrenal gland Dysuria Hypercholesterolemia Lumbar strain Neurologic disorder associated with diabetes mellitus Peripheral vascular disease Spinal stenosis of lumbar region Steatosis of liver Type 2 diabetes mellitus with complication UTI symptoms Venous insufficiency of leg Historical Hyperlipemia Hypertension Procedure/Surgical History Colonoscopy (11/13/2018), Anterior and posterior repair (06/29/2018), bladder uplift (06/2018), Angioplasty of artery (12/14/2015), bypass graft right leg, Cyst removal right hand, excision of tumor left leg, Hysterectomy, Laparoscopic cholecystectomy. Medications aspirin 81 mg oral tablet, 81 mg= 1 tab(s), Oral, Daily atorvastatin 20 mg Tab, 20 mg= 1 tab(s), Oral, Daily, 1 refills Calcium 600+D, 1 tab, Oral, BID Dosoquin, 1 tab, Oral, Daily fluconazole 150 mg Tab, See Instructions, 10 refills Freestyle Irma Flash Glucose Monitoring 14 Day System (Sensor), See Instructions, 1 refills glipiZIDE 10 mg Tab, 10 mg= 1 tab(s), Oral, BID, 1 refills Glucophage XR 500 mg Tab-ER, 1000 mg= 2 tab(s), Oral, BID, 1 refills Keflex 500 mg Cap, 500 mg= 1 cap(s), Oral, q12hr Ozempic (1 mg dose) 4 mg/3 mL subcutaneous solution, 1 mg, SubCutaneous, qWeek, 1 refills semaglutide 1.7 mg/0.75 mL (1.7 mg dose) subcutaneous solution, 1.7 mg, SubCutaneous, qWeek telmisartan 40 mg Tab, See Instructions, 1 refills Allergies Levaquin (Unknown) penicillin (Yeast infection) Social History Alcohol - Denies Alcohol Use, 08/04/2013 Household alcohol concerns: No., 05/17/2023 Substance Abuse - Denies Substance Abuse, 08/04/2013 Tobacco - Denies Tobacco Use, 06/15/2018 Former smoker, quit more than 30 days (more content not included)... [facility] Comment on above: Result Comment: Elec tronically Signed By: Isra Gaxiola MD\.br\Date and Time Signed: 05/30/23 17:20 EDT Insurance Correspondenceon 0 05-22-2023 Insurance Correspondence [id number] 6#1.00CD:127 [facility] Pre-Certification Formon Pre-Certification Form [id number] #1.00CD:127 [facility] Ambulatory Visit Summaryon 0 05-17-2023 Ambulatory Visit Summary KARLY CHOPRA :1955 Visit Date:05/17/2023 Ambulatory Visit Instructions Your Diagnosis Annual visit for general adult medical examination without abnormal findings Advanced care planning/counseling discussion Personal history of tobacco use Screening mammogram for breast cancer Recurrent UTI Diabetic Peripheral vascular disease Hypercholesterolemia BMI 29.0-29.9,adult Tests Performed Urnls Dip Stick Non-Auto w/o Micrscpy POC 94854 Your Care Team Attending Physician - Isra Gaxiola MD Primary Care Physician - Isra Gaxiola MD This Is Your Medications List [facility] Prescription (Freestyle Irma Flash Glucose Monitoring 14 Day System (Sensor)) aspirin (aspirin 81 mg oral tablet) atorvastatin (atorvastatin 20 mg Tab) calcium-vitamin D (Calcium 600+D) fluconazole (fluconazole 150 mg Tab) glipiZIDE (glipiZIDE 10 mg Tab) metformin (Glucophage XR 500 mg Tab-ER) multivitamin (Dosoquin) semaglutide (Ozempic (1 mg dose) 4 mg/3 mL subcutaneous solution) semaglutide (semaglutide 1.7 mg/0.75 mL (1.7 mg dose) subcutaneous solution) telmisartan (telmisartan 40 mg Tab) Procedures Performed Colonoscopy (11/13/2018), Anterior and posterior repair (06/29/2018), bladder uplift (06/2018), Angioplasty of artery (12/14/2015), bypass graft right leg, Cyst removal right hand, excision of tumor left leg, Hysterectomy, Laparoscopic cholecystectomy. Discharge Vitals Heart Rate (Peripheral) 88 Blood Pressure 136/86 Height 169 cm Height 67 in Weight 84 kg Weight 184.8 lb BMI 29.41 What to do next Scheduled Follow-Up Appointments Monday 11:00 AM EDT With: Where: [facility] Invalid Interpretation Code [address] [place] [address]- \.br\ You Need to Complete the Following\.br\ CT Chest, Low Dose Screening, 05/17/23, Routine, Order for future visit, Transport Mode: Wheelchair, Reason: Screening, Yes, Yes, Yes, 1, 36, Yes, 4, [id number], No, Metformin, No, No, Personal history of tobacco use [facility] CHEMISTRYOrdered By: Abe curtis on 05-17-2023 Albumin DL <= 20 mg/L (U) [Mass/Vol] 58.9 microgram/mL High 0.0 - 19.0 mcg/mL [facility] [place]isol Albumin Elph (U) [Mass fraction] 8.9 mg/dL Invalid Interpretation Code [facility] [place] Remisol Creatinine (U) [Mass/Vol] 47.9 mg/dL Invalid Interpretation Code [facility] [place] Remisol U Prot/Creat Ratio 185.80 mg/gm Cr Normal 0.00 - 200.00 mg/gm Cr [facility] [place] Remisol Family Medicine Office/Clini c Noteon 05-17-2023 Family Medicine Office/Clinic Note Chief Complaint Subsequent Medicare Wellness Visit Review of Systems PHQ Score Initial Depression Screen Score: 0 Physical Exam Vitals & Measurements HR: 88(Peripheral) BP: 136/86 SpO2: 95% HT: 169 cm HT: 67 in WT: 84 kg WT: 184.8 lb BMI: 29.41 Assessment/Plan 1. Annual visit for general adult medical examination without abnormal findings (Z00.00: Encounter for general adult medical examination without abnormal findings) The patient was given a customized and personalized print out of all the current AHRQ USPSTF?s recommendations for preventative services and all current CDC recommended immunizations, relevant risk recommendations and the following patient brochures were given. Reviewed Medicare preventative services checklist. CDC-Falls Prevention and home safety screening reviewed. Patient denies any falls in last 12 months, voices no worry about falling, exhibits no problems with sitting, standing, or ambulation. Pt voices understanding with keeping walk way area free of clutter to prevent tripping and/or falling. [place] Advance Directives reviewed, see below # 2. Patient denies any problems with ADL?s and Instrumental ADL?s. Cognitive screening completed with memory and clock face drawing, no deficits noted. Immunization Record reviewed with the patient. Discussed Shingrix vaccine with educational handout and availability. Pneumococcal vaccine recommendations discussed with patient. COVID vaccines have been administered, with 2 boosters, immunization record is up to date. Allergies and medications reviewed and up to date. Patient denies concerns with taking medication as prescribed, reviewed OTC medications with patient, medication list up to date. Blood tests were reviewed: Discussed what tests need to be updated. Colonoscopy up to date, last completed 02/2019. DEXA scan up to date, due 2023. Mammogram ordered, see below #4. Reviewed pain symptoms with patient: patient states right shoulder pain. Rates 5/10. Patient is currently going to PT for this, states effective. Patient does not take pain medications, states no need. Reviewed all outside providers that patient follows. Last visit summary notes available in chart and/or have been requested. Follow up scheduled, 07/19/2023 AWV has been scheduled, 05/27/2024 Medicare provides yearly screening for alcohol and depression concerns. This is completed during our Medicare Wellness visit for those who do not have a current diagnosis of depression or concerns with alcohol use. I spent a total of 17 minutes on this date of service which included preparing to see the patient, face to face patient care, completing clinical documentation, obtaining and/or reviewing separately obtained history, counseling and educating the patient with handouts. Explanations were provided with reviewing questionnaires. AUDIT risk assessment screening completed, risk score 0, with patient denying concerns with use. Completed PHQ-2 risk assessment for depression with risk score 0, negative findings. Patient has been reminded to notify the provider if there would be a change or concerns with symptoms with fear, unable to sleep, worrying too much or feeling down and/or sad with lost of interest with daily activities. Will continue to monitor with screening yearly during Medicare wellness visits. 2. Advanced care planning/counseling discussion (Z71.89: Other specified counseling) I spent a total of 17 minute face to face with patient during her yearly Medicare wellness visit. This included the explanation of ADVANCED CARE PLANNING for end of life reviewed. Discussion included handout Planning for Important Health Care Decisions with explanations regarding different decisions with It's about how you live . Explained how this allows you to express your values and desires related to the type of care that can adjust as your situation changes and decisions must be made about the emergency treatments to keep you alive and/or comfortable. Reminded patient to ask herself what makes life meaningful to you? . The best way to making sure your wishes are known can be done with these two Advance Directives- a Living Will and a durable power of attorney lawyer for your health care. These two forms were discussed with other documents available as the DNR explanations, dialysis, hospice availability, organ and/or tissue donation. Next we discussed how to choose her representatives. Reminded patient to consider people she knows that also share her same views and values that would be able to follow through with your wishes. May even want to sit them down and discuss how you would like the decisions to be made and make sure they are aware of what you do not want. After you have completed your directives and selected your alternates, which can be either family or a friend. Next step is making it official. Patient voices understanding her signature must be witnessed by either a Notary or two people not related to her. Explained to the patient the peopl (more content not included)... Normal [facility] Comment on above: Result Comment: Elec tronically Signed By: Sunni Ann\.br\Date and Time Signed: 05/17/23 14:12 EDT\.br\Electronically Co-Signed By: Skyler Seay\.br\Date and Time Co-Signed: 05/17/23 13:37 EDT\.br\Electronically Co-Signed By: Skyler Seay\.br\Date and Time Co-Signed: 05/17/23 13:38 EDT\.br\Electronically Co-Signed By: Skyler Seay\.br\Date and Time Co-Signed: 05/17/23 13:41 EDT Patient Educationon 05-17-20 Patient Education Endocrinology Diabetes Mellitus and Exercise Exercising regularly is important for overall health, especially for people who have diabetes mellitus. Exercising is not only about losing weight. It has many other health benefits, such as increasing muscle strength and bone density and reducing body fat and stress. This leads to improved fitness, flexibility, and endurance, all of which result in better overall health. What are the benefits of exercise if I have diabetes? Exercise has many benefits for people with diabetes. They include: ? Helping to lower and control blood sugar (glucose). ? Helping the body to respond better to the hormone insulin by improving insulin sensitivity. ? Reducing how much insulin the body needs. ? Lowering the risk for heart disease by: ? Lowering bad cholesterol and triglyceride levels. ? Increasing good cholesterol levels. ? Lowering blood pressure. ? Lowering blood glucose levels. What is my activity plan? Your health care provider or certified executive chef can help you make a plan for the type and frequency of exercise that works for you. This is called your activity plan. Be sure to: ? Get at least 150 minutes of medium-intensity or high-intensity exercise each week. Exercises may include brisk walking, biking, or water aerobics. ? Do stretching and strengthening exercises, such as yoga or weight lifting, at least 2 times a week. ? Spread out your activity over at least 3 days of the week. ? Get some form of physical activity each day. ? Do not go more than 2 days in a row without some kind of physical activity. ? Avoid being inactive for more than 90 minutes at a time. Take frequent breaks to walk or stretch. ? Choose exercises or activities that you enjoy. Set realistic goals. ? Start slowly and gradually increase your exercise intensity over time. How do I manage my diabetes during exercise? Monitor your blood glucose ? Check your blood glucose before and after exercising. If your blood glucose is: ? 240 mg/dL (13.3 mmol/L) or higher before you exercise, check your urine for ketones. These are chemicals created by the liver. If you have ketones in your urine, do not exercise until your blood glucose returns to normal. ? 100 mg/dL (5.6 mmol/L) or lower, eat a snack containing 15?20 grams of carbohydrate. Check your blood glucose 15 minutes after the snack to make sure that your glucose level is above 100 mg/dL (5.6 mmol/L) before you start your exercise. ? Know the symptoms of low blood glucose (hypoglycemia) and how to treat it. Your risk for hypoglycemia increases during and after exercise. Follow these tips and your health care provider's instructions ? Keep a carbohydrate snack that is fast-acting for use before, during, and after exercise to help prevent or treat hypoglycemia. ? Avoid injecting insulin into areas of the body that are going to be exercised. For example, avoid injecting insulin into: ? Your arms, when you are about to play tennis. ? Your legs, when you are about to go jogging. ? Keep records of your exercise habits. Doing this can help you and your health care provider adjust your diabetes management plan as needed. Write down: ? Food that you eat before and after you exercise. ? Blood glucose levels before and after you exercise. ? The type and amount of exercise you have done. ? Work with your health care provider when you start a new exercise or activity. He or she may need to: ? Make sure that the activity is safe for you. ? Adjust your insulin, other medicines, and food that you eat. ? Drink plenty of water while you exercise. This prevents loss of water (dehydration) and problems caused by a lot of heat in the body (heat stroke). Where to find more information ? [place] [employer]: www.diabetes.org Summary ? Exercising regularly is important for overall health, especially for people who have diabetes mellitus. ? Exercising has many health benefits. It increases muscle strength and bone density and reduces body fat and stress. It also lowers and controls blood glucose. ? Your health care provider or certified executive chef can help you make an activity plan for the type and frequency of exercise that works for you. ? Work with your health care provider to make sure any new activity is safe for you. Also work with your health care provider to adjust your insulin, other medicines, and the food you eat. This information is not intended to replace advice given to you by your health care provider. Make sure you discuss any questions you have with your health care provider. Document Revised: 07/27/2020 Document Reviewed: 07/27/2020 [email or web address] Patient Education ? 2022 [employer]. Nutrition High Cholesterol High cholesterol is a condition in which the blood has high levels of a white, waxy substance similar to fat (c (more content not included)... Normal [facility] Screenson 05-17-2023 Screens [id number] #1.00CD:127 Normal [facility] U Microalbon 05-17-2023 Albumin DL <= 20 mg/L (U) [Mass/Vol] 58.9 microgram/mL High 0.0-19.0 [facility] Comment on above: Performed By: #### 1 [id number], [id number] ####[facility] [address] [place] [address] U Protein/Creat Ratioon Albumin Elph (U) [Mass fraction] 8.9 mg/dL Invalid Interpretation Code [facility] Comment on above: Result Comment: The reference range and other method performance specifications have not been established for this test; results should be integrated into the clinical context for interpretation. Performed By: #### 1 [id number], [id number] ####[facility] [address] [place] [address] Creatinine (U) [Mass/Vol] 47.9 mg/dL Invalid Interpretation Code [facility] Comment on above: Result Comment: The reference range and other method performance specifications have not been established for this test; results should be integrated into the clinical context for interpretation. Performed By: #### 1 [id number], [id number] ####[facility] [address] [place] [address] U Prot/Creat Ratio 185.80 mg/gm Cr Normal .00-200.00 [facility] Comment on above: Performed By: #### 1 [id number], [id number] ####[facility] [address] [place] [address] PT - Assessmentson PT - Assessments [id number] 7#1.00CD:127 Normal [facility] PT - Home Exercise Programon 05-01-2023 PT - Home Exercise Program [id number] 1#1.00CD:127 Normal [facility] Reminderson 04-25-2023 Reminders - From: Susy Garzon DO To: [facility] - Clinical; Sent: 04/25/2023 07:53:55 EDT Show up: 04/25/2023 07:54:00 EDT Subject: hgbA1C Due Date/Time: 04/26/2023 07:53:[address] too high schedule appointment with PCP Results: Date Result Name Ind Value Ref Range 04/24/2023 12:09 Hgb A1C % ((H)) 12.3 % ( - <=5.9) Discussed with Dr Gaxiola, Candice was just seen yesterday and he increased her ozempic, would like her seen in 3 mos for a follow up. Called Candice, advised of A1C results and she set up a 3 mos follow up Normal [facility] Ambulatory Visit Summaryon 0 04-24-2023 Ambulatory Visit Summary KEYSHAKARLY :1955 Visit Date:04/24/2023 Ambulatory Visit Instructions Your Diagnosis Type 2 diabetes mellitus with complication Dysuria Hematuria BMI 29.0-29.9,adult Overweight Tests Performed Urnls Dip Stick Non-Auto w/o Micrscpy POC 42746 Your Care Team Attending Physician - Isra Gaxiola MD Primary Care Physician - Isra Gaxiola MD This Is Your Medications List fluconazole (Diflucan 150 mg Tab) semaglutide (semaglutide 1.7 mg/0.75 mL (1.7 mg dose) subcutaneous solution) Contact prescribing physician if questions or concerns Misc Prescription (LFS [employer]e Flash Glucose Monitoring 14 Day System (Sensor)) aspirin (aspirin 81 mg oral tablet) atorvastatin (atorvastatin 20 mg Tab) calcium-vitamin D (Calcium 600+D) glipiZIDE (glipiZIDE 10 mg Tab) metformin (Glucophage XR 500 mg Tab-ER) multivitamin (Dosoquin) telmisartan (telmisartan 40 mg Tab) Procedures Performed Colonoscopy (11/13/2018), Anterior and posterior repair (06/29/2018), bladder uplift (06/2018), Angioplasty of artery (12/14/2015), bypass graft right leg, Cyst removal right hand, excision of tumor left leg, Hysterectomy, Laparoscopic cholecystectomy. Discharge Vitals Heart Rate (Peripheral) 82 Respiratory Rate 16 Blood Pressure 124/78 Height 169 cm Height 67 in Weight 84.2 kg Weight 185.24 lb BMI 29.48 What to do next Scheduled Follow-Up Appointments Monday 5:15 PM EDT Where: [facility] Monday 4:15 PM EDT Where: [facility] Monday 12:45 PM EDT Where: [facility] Monday 1:00 PM EDT Where: [facility] 2022 9:30 AM EDT Where: [facility] [place] Family Medicine Office/Clini c Noteon 04-24-2023 Family Medicine Office/Clinic Note Chief Complaint follow up diabetes, thinks she has a UTI HPI Staff 2 month follow up diabetes Patient is here for follow up on Diabetes. How often are you checking your blood sugars? has freestyle but not checking it lately but feels she's doing better What are your average readings? doesn't know Do you have any of the following symptoms? Foot Exam: due Eye Exam: early 2021 Microalbumin: due Last A1C: 13.January due Last Chronic Labs: January 2023 questions/concerns: feels she may have a UTI again seeing blood and she's raw and sore ordered u/a and needs a refill of the fuconazole History of Present Illness - Here for a Dm recheck - BS have improved but still in the upper 200's - Pt feels better - Pt has a complaint with Urination. Please see staff HPI Review of Systems PHQ Score Initial Depression Screen Score: 0 Physical Exam Vitals & Measurements HR: 82(Peripheral) RR: 16 BP: 124/78 SpO2: 99% HT: 67 in HT: 169 cm WT: 84.2 kg WT: 185.24 lb BMI: 29.48 General: alert, no acute distress ENMT: oral mucosa moist, Cardiovascular: regular rate and rhythm, normal peripheral perfusion Respiratory: Lungs CTA, respirations non labored Extremities: no deformity, no trauma Neurological: oriented x 4, LOC appropriate for age, CN II-XII intact, motor strength equal & normal bilaterally, speech normal Assessment/Plan 1. Type 2 diabetes mellitus with complication (E11.8: Type 2 diabetes mellitus with unspecified complications) - Improving - Increase in the ozempic - Recheck A1c today. Ordered: HgbA1c Lab Specimen Collect 71852 2. Dysuria (R30.0: Dysuria) - Most likely 2/2 Fungal - Diflucan reordered - Discussed hydration with the Ketones in her urine. Ordered: HgbA1c Lab Specimen Collect 14403 3. Hematuria (R31.9: Hematuria, unspecified) - Trace today. - Possible 2/2 the yeast infection. - Will monitor. Ordered: Lab Specimen Collect 29670 Urnls Dip Stick Non-Auto w/o Micrscpy POC 08839 4. BMI 29.0-29.9,adult (Z68.29: Body mass index [BMI] 29.0-29.9, adult) BMI education given. Ordered: Body Mass Index (BMI) documented 3008F Current tobacco non-user 1036F Depression Screening Negative 3352F HgbA1c Influenza immunization administered or previously received 4274F Lab Specimen Collect 95161 Most recent diastolic blood pressure <80 mm Hg 3078F Patient screen for fall risk: no falls in last year or 1 fall with no injury in last year 1101F Systolic BP <130 mm Hg (Most Recent) 3074F 5. Overweight (E66.3: Overweight) - As above. Ordered: Body Mass Index (BMI) documented 3008F Current tobacco non-user 1036F Depression Screening Negative 3352F HgbA1c Influenza immunization administered or previously received 4274F Lab Specimen Collect 25310 Most recent diastolic blood pressure <80 mm Hg 3078F Patient screen for fall risk: no falls in last year or 1 fall with no injury in last year 1101F Systolic BP <130 mm Hg (Most Recent) 3074F Orders: fluconazole, 150 mg = 1 tab(s), Oral, Once, # 1 tab(s), Refills(s) 0, Pharmacy: [facility], 169, cm, 04/24/23 11:22:00 EDT, Height/Length Dosing, 84.2, kg, 04/24/23 11:22:00 EDT, Weight Dosing semaglutide, 1.7 mg, SubCutaneous, qWeek, # 12 EA, Refills(s) 0, Pharmacy: [facility], 169, cm, 04/24/23 11:22:00 EDT, Height/Length Dosing, 84.2, kg, 04/24/23 11:22:00 EDT, Weight Dosing Follow-up No qualifying data available Patient Education BMI for Adults Problem List/Past Medical History Ongoing Atherosclerosis of [place] arteries of extremities with intermittent claudication, right leg Cervical radiculopathy Disorder of adrenal gland Dysuria Hypercholesterolemia Lumbar strain Neurologic disorder associated with diabetes mellitus Peripheral vascular disease Spinal stenosis of lumbar region Steatosis of liver Type 2 diabetes mellitus with complication Venous insufficiency of leg Historical Hyperlipemia Hypertension Procedure/Surgical History Colonoscopy (11/13/2018), Anterior and posterior repair (06/29/2018), bladder uplift (06/2018), Angioplasty of artery (12/14/2015), bypass graft right leg, Cyst removal right hand, excision of tumor left leg, Hysterectomy, Laparoscopic cholecystectomy. Medications aspirin 81 mg oral tablet, 81 mg= 1 tab(s), Oral, Daily atorvastatin 20 mg Tab, 20 mg= 1 tab(s), Oral, Daily, 1 refills Calcium 600+D, 1 tab, Oral, BID Diflucan 150 mg Tab, 150 mg= 1 tab(s), Oral, Once Dosoquin, 1 tab, Oral, Daily, Not taking Freestyle Irma Flash Glucose Monitoring 14 Day System (Sensor), See Instructions, 1 refills glipiZIDE 10 mg Tab, 10 mg= 1 tab(s), Oral, BID, 1 refills Glucophage XR 500 mg Tab-ER, 1000 mg= 2 tab(s), Oral, BID, 1 refills semaglutide 1.7 mg/0.75 mL (1.7 mg dose) subcutaneous solution, 1.7 mg, SubCutaneous, qWeek telmisartan 40 mg Tab, See Instructions, 1 refills Allergies Levaquin (Unknown) penicillin (Yeast i (more content not included)... Normal [facility] Comment on above: Result Comment: Elec tronically Signed By: Minor THOMAS, Isra Montemayor.br\Date and Time Signed: 04/24/23 12:35 EDT [id number] 04-24-2023 HbA1c (Bld) [Mass fraction] 12.3 % High <=5.9 [facility] Comment on above: Performed By: #### 7 [id number] #### [facility] [address] [place] [address] Patient Educationon 04-24-20 Patient Education Nutrition BMI for Adults What is BMI? Body mass index (BMI) is a number that is calculated from a person's weight and height. BMI can help estimate how much of a person's weight is composed of fat. BMI does not measure body fat directly. Rather, it is an alternative to procedures that directly measure body fat, which can be difficult and expensive. BMI can help identify people who may be at higher risk for certain medical problems. What are BMI measurements used for? BMI is used as a screening tool to identify possible weight problems. It helps determine whether a person is obese, overweight, a healthy weight, or underweight. BMI is useful for: ? Identifying a weight problem that may be related to a medical condition or may increase the risk for medical problems. ? Promoting changes, such as changes in diet and exercise, to help reach a healthy weight. BMI screening can be repeated to see if these changes are working. How is BMI calculated? BMI involves measuring your weight in relation to your height. Both height and weight are measured, and the BMI is calculated from those numbers. This can be done either in [place] or metric measurements. Note that charts and online BMI calculators are available to help you find your BMI quickly and easily without having to do these calculations yourself. To calculate your BMI in [place] measurements: 1. Measure your weight in pounds (lb). 2. Multiply the number of pounds by 703. ? For example, for a person who weighs 180 lb, multiply that number by 703, which equals 126,540. 3. Measure your height in inches. Then multiply that number by itself to get a measurement called inches squared. ? For example, for a person who is 70 inches tall, the inches squared measurement is 70 inches x 70 inches, which equals 4,900 inches squared. 4. Divide the total from step 2 (number of lb x 703) by the total from step 3 (inches squared): 126,540 ? 4,900 = 25.8. This is your BMI. To calculate your BMI in metric measurements: 1. Measure your weight in kilograms (kg). 2. Measure your height in meters (m). Then multiply that number by itself to get a measurement called meters squared. ? For example, for a person who is 1.75 m tall, the meters squared measurement is 1.75 m x 1.75 m, which is equal to 3.1 meters squared. 3. Divide the number of kilograms (your weight) by the meters squared number. In this example: 70 ? 3.1 = 22.6. This is your BMI. What do the results mean? BMI charts are used to identify whether you are underweight, normal weight, overweight, or obese. The following guidelines will be used: ? Underweight: BMI less than 18.5. ? Normal weight: BMI between 18.5 and 24.9. ? Overweight: BMI between 25 and 29.9. ? Obese: BMI of 30 or above. Keep these notes in mind: ? Weight includes both fat and muscle, so someone with a muscular build, such as an athlete, may have a BMI that is higher than 24.9. In cases like these, BMI is not an accurate measure of body fat. ? To determine if excess body fat is the cause of a BMI of 25 or higher, further assessments may need to be done by a health care provider. ? BMI is usually interpreted in the same way for men and women. Where to find more information For more information about BMI, including tools to quickly calculate your BMI, go to these websites: ? Centers for Disease Control and Prevention: www.cdc.gov ? [place] [employer]: www.heart.org ? National Heart, Lung, and Blood [place]: www.nhlbi.nih.gov Summary ? Body mass index (BMI) is a number that is calculated from a person's weight and height. ? BMI may help estimate how much of a person's weight is composed of fat. BMI can help identify those who may be at higher risk for certain medical problems. ? BMI can be measured using [place] measurements or metric measurements. ? BMI charts are used to identify whether you are underweight, normal weight, overweight, or obese. This information is not intended to replace advice given to you by your health care provider. Make sure you discuss any questions you have with your health care provider. Document Revised: 07/22/2020 Document Reviewed: 05/29/2020 Elsevier Patient Education ? 2022 [employer]. [facility] PT - Assessmentson 3 PT - Assessments [id number] 1#1.00CD:127 [facility] PT - Home Exercise Programon 04-05-2023 PT - Home Exercise Program [id number] #1.00CD:127 [facility] PT - Home Exercise Programon 03-30-2023 PT - Home Exercise Program [id number] 4#1.00CD:127 [facility] Consent for Treatmenton 03-13 Consent for Treatment [id number] #1.00CD:127 [facility] PT - Assessmentson 3 PT - Assessments [id number] 6#1.00CD:127 [facility] PT - Consentson 03-23-2023 PT - Consents [id number] 3#1.00CD:127 [facility] PT - Home Exercise Programon 03-23-2023 PT - Home Exercise Program [id number] 5#1.00CD:127 [facility] Ambulatory Visit Summaryon 0 03-20-2023 Ambulatory Visit Summary KARLY CHOPRA :1955 Visit Date:03/20/2023 Ambulatory Visit Instructions Your Diagnosis Cervical radiculopathy BMI 29.0-29.9,adult Overweight UTI symptoms Tests Performed Urnls Dip Stick Non-Auto w/o Micrscpy POC 63388 Your Care Team Attending Physician - Isra Gaxiola MD Primary Care Physician - Isra Gaxiola MD This Is Your Medications List fluconazole (Diflucan 150 mg Tab) nitrofurantoin (Macrobid 100 mg Cap) Contact prescribing physician if questions or concerns Misc Prescription ([employer] Irma Flash Glucose Monitoring 14 Day System (Sensor)) aspirin (aspirin 81 mg oral tablet) atorvastatin (atorvastatin 20 mg Tab) calcium-vitamin D (Calcium 600+D) glipiZIDE (glipiZIDE 10 mg Tab) metformin (Glucophage XR 500 mg Tab-ER) multivitamin (Dosoquin) semaglutide (semaglutide 1 mg/0.5 mL (1 mg dose) subcutaneous solution) telmisartan (telmisartan 40 mg Tab) Procedures Performed Colonoscopy (11/13/2018), Anterior and posterior repair (06/29/2018), bladder uplift (06/2018), Angioplasty of artery (12/14/2015), bypass graft right leg, Cyst removal right hand, excision of tumor left leg, Hysterectomy, Laparoscopic cholecystectomy. Discharge Vitals Heart Rate (Peripheral) 86 Respiratory Rate 20 Blood Pressure 132/70 Height 169 cm Height 67 in Weight 84.60 kg Weight 186.12 lb BMI 29.62 What to do next Scheduled Follow-Up Appointments Monday. 2022 9:00 AM EDT With: Where: [facility] Monday 1:00 PM EDT With: Where: [facility] Monday 11:20 AM EDT With: Isra Gaxiola MD Where: [facility] [place] Family Medicine Office/Clini c Noteon 03-20-2023 Family Medicine Office/Clinic Note Chief Complaint UTI HPI Staff patient presents for possible UTI Health Maintenance: Colonoscopy: 4 years ago normal Mammogram: Aug 2022 Pap/pelvic: 5 years ago s/p hysterectomy ( has her ovaries) covid: UTD questions/concerns: strong odor, itching, feels lumps/bumps in that area History of Present Illness - See staff HPI - Pt would like PT for her neck/Shoulder. Review of Systems PHQ Score Initial Depression Screen Score: 1 Physical Exam Vitals & Measurements HR: 86(Peripheral) RR: 20 BP: 132/70 SpO2: 94% HT: 67 in HT: 169 cm WT: 84.60 kg WT: 186.12 lb BMI: 29.62 General: alert, no acute distress Neurological: oriented x 4, LOC appropriate for age, CN II-XII intact, motor strength equal & normal bilaterally, speech normal Assessment/Plan 1. UTI symptoms (R39.9: Unspecified symptoms and signs involving the genitourinary system) U/A is positive. Will treat Follow cultures Ordered: Urnls Dip Stick Non-Auto w/o Micrscpy POC 00982 2. Cervical radiculopathy (M54.12: Radiculopathy, cervical region) - PT ordered Ordered: fluconazole, 150 mg = 1 tab(s), Oral, Once, # 1 tab(s), Refills(s) 0, [id number] 169, cm, 03/20/23 12:01:00 EDT, Height/Length Dosing, 84.6, kg, 03/20/23 12:01:00 EDT, Weight Dosing nitrofurantoin, 100 mg = 1 cap(s), Oral, BID, X 7 day(s), # 14 cap(s), Refills(s) 0, [id number] 169, cm, 03/20/23 12:01:00 EDT, Height/Length Dosing, 84.6, kg, 03/20/23 12:01:00 EDT, Weight Dosing Body Mass Index (BMI) documented 3008F Current tobacco non-user 1036F Depression Screening Negative 3352F [facility] [place] Evaluate Patient, Develop a Plan of Care, & Implement Plan Influenza immunization administered or previously received 4274F Most recent diastolic blood pressure <80 mm Hg 3078F Patient screen for fall risk: no falls in last year or 1 fall with no injury in last year 1101F Systolic BP 130-139 mm Hg (Most Recent) 3075F 3. BMI 29.0-29.9,adult (Z68.29: Body mass index [BMI] 29.0-29.9, adult) - BMI education given. Ordered: Body Mass Index (BMI) documented 3008F Current tobacco non-user 1036F Depression Screening Negative 3352F Influenza immunization administered or previously received 4274F Most recent diastolic blood pressure <80 mm Hg 3078F Patient screen for fall risk: no falls in last year or 1 fall with no injury in last year 1101F Systolic BP 130-139 mm Hg (Most Recent) 3075F 4. Overweight (E66.3: Overweight) Ordered: Body Mass Index (BMI) documented 3008F Current tobacco non-user 1036F Depression Screening Negative 3352F Influenza immunization administered or previously received 4274F Most recent diastolic blood pressure <80 mm Hg 3078F Patient screen for fall risk: no falls in last year or 1 fall with no injury in last year 1101F Systolic BP 130-139 mm Hg (Most Recent) 3075F Follow-up No qualifying data available Problem List/Past Medical History Ongoing Atherosclerosis of [place] arteries of extremities with intermittent claudication, right leg Cervical radiculopathy Disorder of adrenal gland Hypercholesterolemia Lumbar strain Neurologic disorder associated with diabetes mellitus Peripheral vascular disease Spinal stenosis of lumbar region Steatosis of liver Type 2 diabetes mellitus without complication, without long-term current use of insulin Venous insufficiency of leg Historical Hyperlipemia Hypertension Procedure/Surgical History Colonoscopy (11/13/2018), Anterior and posterior repair (06/29/2018), bladder uplift (06/2018), Angioplasty of artery (12/14/2015), bypass graft right leg, Cyst removal right hand, excision of tumor left leg, Hysterectomy, Laparoscopic cholecystectomy. Medications aspirin 81 mg oral tablet, 81 mg= 1 tab(s), Oral, Daily atorvastatin 20 mg Tab, Oral, Daily Calcium 600+D, 1 tab, Oral, BID Diflucan 150 mg Tab, 150 mg= 1 tab(s), Oral, Once Dosoquin, 1 tab, Oral, Daily Freestyle Irma Flash Glucose Monitoring 14 Day System (Sensor), See Instructions, 1 refills glipiZIDE 10 mg Tab, 10 mg= 1 tab(s), Oral, BID Glucophage XR 500 mg Tab-ER, 1000 mg= 2 tab(s), Oral, BID, 1 refills Macrobid 100 mg Cap, 100 mg= 1 cap(s), Oral, BID semaglutide 1 mg/0.5 mL (1 mg dose) subcutaneous solution, 1 mg, SubCutaneous, qWeek telmisartan 40 mg Tab, See Instructions, 1 refills Allergies Levaquin (Unknown) penicillin (Yeast infection) Social History Alcohol - Denies Alcohol Use, 08/04/2013 Substance Abuse - Denies Substance Abuse, 08/04/2013 Tobacco - Denies Tobacco Use, 06/15/2018 Former smoker, quit more than 30 days ago Tobacco Use:. Never Smokeless Tobacco Use:. Cigarettes, Stopped age 63 Years. Household tobacco concerns: No., 03/20/2023 Family History Congenital heart disease: Mother and Father. Diabetes mellitus: Father. Immunizations Vaccine Date Status Comments SARS-CoV-2 (COVID-19) [id number] 10/31/2022 Recorde (more content not included)... Normal [facility] Comment on above: Result Comment: Elec tronically Signed By: Minor THOMAS, Isra Wilkins\.br\Date and Time Signed: 03/20/23 17:27 EDT CULTURE URINEon 11-01-2022 CULTURE URINE Culture Observations: NO GROWTH. Normal [facility] Comment on above: Performed By: #### U RCX #### [facility] [address] [place] [address] Dr. Carolann Velazco UA (CLEAN/CATCH) MICROSCOPIC IF INDICATEon 11-01-2022 Bilirubin Ql (U) Negative Normal NEGATIVE [facility] [place] Comment on above: Performed By: #### U MICRO, UARMICR #### [facility] [address] [place] [address] Dr. Carolann Velazco Clarity (U) CLEAR Normal CLEAR [facility] [place] Comment on above: Performed By: #### U MICRO, UARMICR #### [facility] [address] [place] [address] Dr. Carolann Velazco Color (U) LT. YELLOW Normal YELLOW [facility] [place] Comment on above: Performed By: #### U MICRO, UARMICR #### [facility] [address] [address] [address] Carolann Velazco Glucose Ql (U) >1000 Abnormal NEGATIVE [facility] Comment on above: Performed By: #### U MICRO, UARMICR #### [facility] [address] [place] [address] Dr. Carolann Velazco Hemoglobin Ql (U) TRACE-INTACT Abnormal NEGATIVE [facility] [place] Comment on above: Performed By: #### U MICRO, UARMICR #### [facility] [address] [place] [address] Dr. Carolann Velazco Ketones Ql (U) 15 mg/dl Abnormal NEGATIVE [facility] Comment on above: Performed By: #### U MICRO, UARMICR #### [facility] [address] [place] [address] Dr. Carolann Velazco LEUKOCYTES Negative Normal NEGATIVE [facility] Comment on above: Performed By: #### U MICRO, UARMICR #### [facility] [address] [place] [address] Dr. Carolann Velazco Nitrite Ql (U) Negative Normal NEGATIVE [facility] Comment on above: Performed By: #### U MICRO, UARMICR #### [facility] [address] [place] [address] Dr. Carolann Velazco pH (U) 5.0 [pH] Normal 5-9 [facility] Comment on above: Performed By: #### U MICRO, UARMICR #### [facility] [address] [place] [address] Dr. Carolann Velazco SPEC GRAVITY 1.015 Normal 1.005-<=1.025 [facility] Comment on above: Performed By: #### U MICRO, UARMICR #### [facility] [address] [place] [address] Dr. Carolann Velazco UA PROTEIN Negative Normal NEGATIVE/ TRACE [facility] Comment on above: Performed By: #### U MICRO, UARMICR #### [facility] [address] [place] [address] Dr. Carolann Velazco UR MICRO IND INDICATED Normal [facility] Comment on above: Performed By: #### U MICRO, UARMICR #### [facility] [address] [place] [address] Dr. Carolann Velazco Urobilinogen Qn (U) 0.2 {Pamela'U}/dL Normal 0.2 - 1.0 [facility] Comment on above: Performed By: #### U MICRO, UARMICR #### [facility] [address] [place] [address] Dr. Carolann Velazco URINE MICROSCOPIC ONLYon BACTERIA NONE SEEN Normal NONE SEEN [facility] Comment on above: Performed By: #### U MICRO, UARMICR #### [facility] [address] [place] [address] Dr. Carolann Velazco Bacteria identified Cx Nom (U) NOT INDICATED Normal [facility] Comment on above: Performed By: #### U MICRO, UARMICR #### [facility] [address] [place] [address] Dr. aCrolann Velazco CAST NONE SEEN Normal NONE SEEN [facility] Comment on above: Performed By: #### U MICRO, UARMICR #### [facility] [address] [place] [address] Dr. Carolann Velazco Crystals LM Nom (Urine sed) NONE SEEN Normal NONE SEEN [facility] Comment on above: Performed By: #### U MICRO, UARMICR #### [facility] [address] [place] [address] Dr. Carolann Velazco Epithelial cells LM Ql (Urine sed) FEW Abnormal NONE SEEN /RARE [facility] Comment on above: Performed By: #### U MICRO, UARMICR #### [facility] [address] [place] [address] Dr. Carolann Velazco MUCOUS NONE SEEN Normal NONE SEEN [facility] Comment on above: Performed By: #### U MICRO, UARMICR #### [facility] [address] [place] [address] Dr. Carolann Velazco RBC 0-2 Normal 0-2 [facility] Comment on above: Performed By: #### U MICRO, UARMICR #### [facility] [address] [place] [address] Dr. Carolann Velazco WBC 0-2 Abnormal NONE SEEN [facility] Comment on above: Performed By: #### U MICRO, UARMICR #### [facility] [address] [place] [address] Dr. Carolann Velazco CBC AUTO DIFFon 08-17-2022 BASO # 0.1 103/ul Normal 0.0-0.1 [facility] Comment on above: Performed By: #### C BC #### [facility] [address] [place] [address] Dr. Carolann Velazco Basophils/100 WBC (Bld) 0.9 % Normal 0.2-2.0 [facility] Comment on above: Performed By: #### C BC #### [facility] [address] [place] [address] Dr. Carolann Velazco EO # 0.1 103/ul Normal 0.0-0.7 [facility] Comment on above: Performed By: #### C BC #### [facility] [address] [place] [address] Dr. Carolann Velazco Eosinophils/100 WBC (Bld) 1.1 % Normal 0.9-7.0 [facility] Comment on above: Performed By: #### C BC #### [facility] [address] [place] [address] Dr. Carolann Velazco Erythrocyte distribution width (RBC) [Ratio] 12.3 % Normal 11.0-15.0 [facility] Comment on above: Performed By: #### C BC #### [facility] [address] [place] [address] Dr. Carolann Velazco Hematocrit (Bld) [Volume fraction] 40.4 % Normal 36.0-48.0 [facility] Comment on above: Performed By: #### C BC #### [facility] [address] [place] [address] Dr. Carolann Velazco Hemoglobin (Bld) [Mass/Vol] 13.6 g/dL Normal 12.0-16.0 [facility] Comment on above: Performed By: #### C BC #### [facility] [address] [place] [address] Dr. Carolann Velazco IG # 0.08 10e3/ul Critically high 0.00-0.03 [facility] Comment on above: Performed By: #### C BC #### [facility] [address] [place] [address] Dr. Carolann Velazco IG % 1.2 % Critically high 0.0-0.5 [facility] Comment on above: Performed By: #### C BC #### [facility] [address] [place] [address] Dr. Carolann Velazco LYMPH # 1.4 103/ul Normal 1.2-3.8 [facility] Comment on above: Performed By: #### C BC #### [facility] [address] [place] [address] Dr. Carolann Velazco Lymphocytes/100 WBC (Bld) 21.2 % Normal 20.5-60.0 [facility] Comment on above: Performed By: #### C BC #### [facility] [address] [place] [address] Dr. Carolann Velazco MANUAL DIFF REQ NO Normal [facility] Comment on above: Performed By: #### C BC #### [facility] [address] [place] [address] Dr. Carolann Velazco MCH (RBC) [Entitic mass] 30.4 pg Normal 26.7-34.0 [facility] Comment on above: Performed By: #### C BC #### [facility] [address] [place] [address] Dr. Carolann Velazco MCHC (RBC) [Mass/Vol] 33.7 g/dL Normal 29.9-35.2 [facility] Comment on above: Performed By: #### C BC #### [facility] [address] [place] [address] Dr. Carolann Velazco MCV (RBC) [Entitic vol] 90.4 fL Normal 81.0-99.0 [facility] Comment on above: Performed By: #### C BC #### [facility] [address] [place] [address] Dr. Carolann Velazco MONO # 0.4 103/ul Normal 0.3-0.8 [facility] Comment on above: Performed By: #### C BC #### [facility] [address] [place] [address] Dr. Carolann Velazco Monocytes/100 WBC (Bld) 5.6 % Normal 1.7-12.0 [facility] Comment on above: Performed By: #### C BC #### [facility] [address] [place] [address] Dr. Carolann Velazco NEUT # 4.6 103/ul Normal 1.4-6.5 [facility] Comment on above: Performed By: #### C BC #### [facility] [address] [place] [address] Dr. Carolann Velazco Neutrophils/100 WBC (Bld) 70.0 % Normal 43.0-75.0 [facility] Comment on above: Performed By: #### C BC #### [facility] [address] [place] [address] Dr. Carolann Velazco Platelet mean volume (Bld) [Entitic vol] 9.4 fL Critically low 9.5-13.5 [facility] Comment on above: Performed By: #### C BC #### [facility] [address] [place] [address] Dr. Carolann Velazco PLT 218 103/ul Normal 150-450 [facility] Comment on above: Performed By: #### C BC #### [facility] [address] [place] [address] Dr. Carolann Velazco RBC 4.47 106/ul Normal 4.20-5.40 [facility] Comment on above: Performed By: #### C BC #### [facility] [address] [place] [address] Dr. Carolann Velazco WBC 6.6 103/ul Normal 4.0-11.0 [facility] Comment on above: Performed By: #### C BC #### [facility] [address] [place] [address] Dr. Carolann Velazco GLYCOHEMOGLOBIN A1Con 2021 ADA RECOMMENDATION SEE BELOW Normal [facility] Comment on above: Result Comment: ADA RECOMMENDED LIMIT 4.0 - 6.0 ADA THERAPEUTIC TARGET < 7.0 ACTION SUGGESTED > 7.0 Performed By: #### A 1C #### [facility] [address] [place] [address] Dr. Carolann Velazco Glucose [Mass/Vol] 275 mg/dL Normal [facility] Comment on above: Performed By: #### A 1C #### [facility] [address] [place] [address] Dr. Carolann Velazco HbA1c (Bld) [Mass fraction] 11.2 % Critically high 4.5-6.2 [facility] Comment on above: Performed By: #### A 1C #### [facility] [address] [place] [address] Dr. Carolann Velazco PROF 14(COMP METB)on 022 Albumin [Mass/Vol] 3.0 g/dL Critically low 3.4-5.0 [facility] Comment on above: Performed By: #### C MP #### [facility] [address] [place] [address] Dr. Carolann Velazco Albumin/Globulin [Mass ratio] 0.7 {ratio} Normal [facility] Comment on above: Performed By: #### C MP #### [facility] [address] [place] [address] Dr. Carolann Velazco ALP [Catalytic activity/Vol] 98 U/L Normal 46-116 [facility] Comment on above: Performed By: #### C MP #### [facility] [address] [place] [address] Dr. Carolann Velazco ALT [Catalytic activity/Vol] 23 U/L Normal 14-59 [facility] Comment on above: Performed By: #### C MP #### [facility] [address] [place] [address] Dr. Carolann Velazco Anion gap [Moles/Vol] 11.6 mmol/L Normal [facility] Comment on above: Performed By: #### C MP #### [facility] [address] [place] [address] Dr. Carolann Velazco AST [Catalytic activity/Vol] 11 U/L Critically low 15-37 [facility] Comment on above: Performed By: #### C MP #### [facility] [address] [place] [address] Dr. Carolann Velazco Bilirubin [Mass/Vol] 0.4 mg/dL Normal 0.2-1.0 [facility] Comment on above: Performed By: #### C MP #### [facility] [address] [place] [address] Dr. Carolann Velazco Calcium [Mass/Vol] 9.9 mg/dL Normal 8.5-10.1 [facility] Comment on above: Performed By: #### C MP #### [facility] [address] [place] [address] Dr. Carolann Velazco Chloride [Moles/Vol] 97 mmol/L Critically low 98-107 [facility] Comment on above: Performed By: #### C MP #### [facility] [address] [place] [address] Dr. Carolann Velazco CO2 [Moles/Vol] 28.6 mmol/L Normal 21.0-32.0 [facility] Comment on above: Performed By: #### C MP #### [facility] [address] [place] [address] Dr. Carolann Velazco Creatinine [Mass/Vol] 0.74 mg/dL Normal 0.55-1.02 [facility] Comment on above: Performed By: #### C MP #### [facility] [address] [place] [address] Dr. Carolann Velazco EGFR-AF HUNGARIAN >60 Normal >=60 [facility] Comment on above: Performed By: #### C MP #### [facility] [address] [place] [address] Dr. Carolann Velazco EGFR-NON AF HUNGARIAN >60 Normal >=60 [facility] Comment on above: Performed By: #### C MP #### [facility] [address] [place] [address] Dr. Carolann Velazco Globulin (S) [Mass/Vol] 4.6 g/dL Normal [facility] Comment on above: Performed By: #### C MP #### [facility] [address] [place] [address] Dr. Carolann Velazco Glucose [Mass/Vol] 344 mg/dL Critically high 74-106 [facility] Comment on above: Performed By: #### C MP #### [facility] [address] [place] [address] Dr. Carolann Velazco Potassium [Moles/Vol] 4.2 mmol/L Normal 3.5-5.1 [facility] Comment on above: Performed By: #### C MP #### [facility] [address] [address] [address] Carolann Velazco Protein [Mass/Vol] 7.6 g/dL Normal 6.4-8.2 [facility] Comment on above: Performed By: #### C MP #### [facility] [address] [address] [address] Carolann Velazco Sodium [Moles/Vol] 133 mmol/L Critically low 136-145 [facility] Comment on above: Performed By: #### C MP #### [facility] [address] [address] [address] Carolann Velazco Urea nitrogen [Mass/Vol] 17.0 mg/dL Normal 7.0-18.0 [facility] Comment on above: Performed By: #### C MP #### [facility] [address] [address] [address] Carolann Velazco Urea nitrogen/Creatinin e [Mass ratio] 23.0 mg/mg Normal [facility] Comment on above: Performed By: #### C MP #### [facility] [address] [address] [address] Carolann Velazco Covid-19 PCR ([facility])on SARS-CoV-2 (COVID-19) RNA YVETTE+probe Ql (Unsp spec) Not detected Normal NOT DETECTED [facility] Comment on above: Result Comment: When diagnostic testing is negative, the possibility of a false negative should be considered in the context of a patient's recent exposures and the presence of clinical signs and symptoms consistent with SARS-CoV-2. This test is not yet approved or cleared by the [place] FDA. When there are no FDA-approved or cleared tests available, and other criteria are met, FDA can make tests available under an emergency access mechanism called an Emergency Use Authorization (EUA). The EUA for this test is supported by the [place] of Health and Human Service's declaration that circumstances exist to justify the emergency use of in vitro diagnostics for the detection and/or diagnosis of the virus that causes COVID-19. This EUA will remain in effect for the duration of the COVID-19 declaration justifying emergency of IVDs, unless it is terminated or revoked by the FDA (after which the test may no longer be used). Performed By: #### C VDTB #### [facility] [address] [place] [address] Dr. Carolann Velazco CULTURE URINEon 01-20-2022 CULTURE URINE Isolate 1 Escherichia coli >100,000 cfu/mL of ORGANISM 1 Escherichia coli ANTIBIOTIC M.I.C RX STATUS Ampicillin >=32 R F Ampicillin/Sulbactam >=32 R F Piperacillin/Tazobac enrique <=4 S F Cefazolin <=4 S F Ceftazidime <=1 S F Ceftriaxone <=1 S F Ertapenem <=0.5 S F Imipenem <=0.25 S F Amikacin <=2 S F Gentamicin >=16 R F Tobramycin 4 S F Ciprofloxacin <=0.25 S F Levofloxacin <=0.12 S F Nitrofurantoin <=16 S F Trimethoprim/Sulfame thoxazole >=320 R F Normal [facility] Comment on above: Performed By: #### C #### [facility] [address] [place] [address] Dr. Carolann Velazco GLYCOHEMOGLOBIN A1Con 2021 ADA RECOMMENDATION ADA THERAPEUTIC TARGET 6.0 - 7.0 ACTION SUGGESTED > 7.0 Normal [facility] Comment on above: Performed By: #### A 1C #### [facility] [address] [place] [address] Dr. Carolann Velazco Glucose [Mass/Vol] 246 mg/dL Normal [facility] Comment on above: Performed By: #### A 1C #### [facility] [address] [place] [address] Dr. Carolann Velazco HbA1c (Bld) [Mass fraction] 10.2 % Critically high <=6.0 [facility] Comment on above: Performed By: #### A 1C #### [facility] [address] [place] [address] Dr. Carolann Velazco CNOVon 05-18-2018 CNOV Office Visit (CARDFT) --------KARLY CHOPRA ([id number]) [address] [facility] Department05/18/18 10:00 AM WES HEDRICK During your visit today, we recorded the following information about you: Pulse Respiration Blood pressure Weight 81/minute 16/minute 156/75 89.7 kgMillerffdevante Hedrick MD 05/18/2018 1:35 PM [facility] Department of Cardiovascular MedicineOUTPATIENT VISIT DATE 05/18/18OUTPATIENT VISIT TYPENEWPRIMARY CARE PHYSICIAN:Jose Garza MD[address] [facility] [id number]: [phone]: [phone] COMPLAINT:Patient presents with:CARD New Patient ConsultHISTORY OF PRESENT ILLNESS:Karly Chopra is a 62 year old female with a past cardiac history of essentialhypertensio n, hyperlipidemia, right bundle branch block, peripheral arterydisease with mild carotid disease and previous angioplasty in the right lowerextremity.05/18This patient presents today as a consult regarding a preoperative evaluationprior to pelvic suspension surgery. The patient had an opinion from acardiologist in [place] suggesting that she was at moderate risk for aperioperative cardiac event. They attempted to schedule a nuclear stressevaluation however her insurance coverage refused to cover it. The stress testwas never performed. The patient really once to have her surgery done but shestates the anesthesiologist refuses to do this surgery without further cardiacevaluation. The patient does have multiple risk factors for coronary arterydisease. She is able to walk 4-6 blocks without any chest discomfort orshortness of breath. She is also able to climb 3 flights of stairs withoutstopping for chest discomfort or excessive shortness of breath. She statesthat she is active at home. She denies any previous cardiac history. Herelectrocardiogram revealed a right bundle branch block but no other evidence ofST or T-wave changes. She denies any palpitations, syncopal or near syncopalepisodes. She denies any orthopnea or paroxysmal nocturnal dyspnea. She doesget some mild swelling in her ankles at night which usually is resolved bymorning. She is obviously frustrated with healthcare at the moment.PAST MEDICAL HISTORYDiagnosis Date- Diabetes (HCC)- Hyperlipidemia- HypertensionPAST SURGICAL HISTORYProcedure Laterality Date- ANGIOPLASTY Right lower ext Dr. Mullen- ASPIRATION GANGLION CYST- CHOLECYSTECTOMY- HYSTERECTOMYSocial HistorySubstance Use Topics- Smoking status: Former Smoker Packs/day: 0.50 Years: 45.00 Quit date: 02/16/2018- Smokeless tobacco: Never Used- Alcohol use NoFAMILY HISTORYProblem Relation Age of Onset- Heart disease Mother Pacemaker- Heart Attack Father 40ALLERGIES:ALLERGIE o Known AllergiesMEDICATIONS :losartan (COZAAR) 50 mg tablet Take 50 mg by mouth once daily.sulfamethoxazo le-trimethoprim (BACTRIM DS,SEPTRA DS) 800-160 mg per tablet Take1 tablet by mouth twice daily.CALCIUM CARBONATE/VITAMIN D3 (CALCIUM 600 + D ORAL) Take 1 tablet by mouthtwice daily.metFORMIN (GLUCOPHAGE) 850 mg tablet Take 850 mg by mouth twice daily withmeals.pravastati n (PRAVACHOL) 20 mg tablet Take 20 mg by mouth once daily.glyBURIDE (MICRONASE, DIABETA) 5 mg tablet Take 5 mg by mouth as needed. IfFSBS is >170REVIEW OF SYSTEMS:A complete review of systems was obtained and is remarkable for that notedabove. The remaining systems are unremarkable.I personally interviewed, confirmed and edited the above information ifobtained by others.PHYSICAL EXAMINATION:BP 156/75 (BP Site: Left Arm, BP Position: Sitting, BP Cuff Size: RegularAdult) Pulse 81 Resp 16 Wt 89.7 kg (197 lb 12.8 oz) SpO2 97% BMI30.98 kg/m?General: Well appearing, in no acute distress.Eyes: Conjunctiva normal, sclera normalNeck: No jugular venous distention, no palpable thyromegaly.Heart: Regular rhythm, S1, S2 normal, no S3, no S4. No murmur. No carotidbruits.Respir atory: Clear to auscultation bilaterally. Good respiratory effort.GI: Soft, nontender, bowel sounds normal, no palpable hepatosplenomegalyEx tremities: Normal pulses in distal lower extremities. Absent lower extremityedemaNeuro: Alert, cooperative with no focal deficit.Psych: Pleasant and cooperative.Skin: No rashes or wounds.CARDIOVASCULA R MEDICINE TESTING:A 12-lead electrocardiogram obtained on 11/10/2017 reveals sinus rhythm at 70bpm. There is a right bundle branch block. There are no ST or T-wave changesnoted.A 12-lead electrocardiogram obtained on May 18, 2018 reveals normal sinusrhythm at 76 bpm. There is possible left atrial enlargement and an incompleteright bundle branch block. There are no ST or T-wave changes noted.I have personally reviewed the above Cardiovascular Medicine Testing.IMPRESSION:1 . Preop cardiovascular exam - ICD9: V72.81, ICD10: Z01.810 (primarydiagnosis), the Link perioperative cardiac risks calculator suggests a verylow risk at 0.14%, the revised cardiac risk index calculator suggests a verylow risk at 0.4%. Using all of the clinical risk factors, lack of symptoms andan EKG with only a right bundle branch block, I would suggest the patient'srisk is relatively low at less than or equal to 2%.2. RBBB (right bundle branch block) - ICD9: 426.4, ICD10: I45.103. Diabetes mellitus type 2 with peripheral artery disease (HCC) - ICD9:250.70, 443.81, ICD10: E11.514. PAD (peripheral artery disease) (HCC) - ICD9: 443.9, ICD10: I73.9, mildcarotid disease, status post angioplasty in the lower extremity for PAD.5. Essential hypertension - ICD9: 401.9, ICD10: I106. Hyperlipidemia, unspecified hyperlipidemia type - ICD9: 272.4, ICD10: E78.5PLAN:The patient is at relatively low risk for the planned procedure. I would placeher risk at less than or equal to 2%.Continue current medical regimen.Suggest usual precautions during the procedure.The patient is to follow-up with us as needed.A copy of this consultation note will be provided to the requesting physicianby way of shared medical record or to the requesting physician via U.S. Mail.This document was generated utilizing [employer] dictation. I have reviewed andverified that the contents of the document are accurate with the exception ofminor grammatical, spelling and punctuation errors.CONTACT INFORMATION:Thank you for allowing us to participate in the care of this very pleasantpatient. Please free to contact us if we can be of any further assistance.Wes Hedrick MD, [facility] Dickens[facility] MedicineSamaritan Hospitalrt and Vascular InstituteCory Ville [id number] [place], [place] [address]Ifycsa: [phone] Referrin g Provider: ROBI CHOUDHURY [[id number]]Allergies As of Date: 05/18/2018(No Known Allergies)Date Reviewed: 05/18/2018Reviewed by: Wes Hedrick - Fully AssessedReason for Visit: CARD New Patient Consult [1228]Primary Visit Diagnosis:Preop cardiovascular exam [Z01.810] Other Visit Diagnoses:RBBB (right bundle branch block) [I45.10] Diabetes mellitus type 2 with peripheral artery disease (HCC) [E11.51] PAD (peripheral artery disease) (HCC) [I73.9] Essential hypertension [I10] Hyperlipidemia, unspecified hyperlipidemia type [E78.5]Prescriptions as of 05/18/2018 Sig: LOSARTAN 50 MG TABLET Take 50 mg by mouth once ang* SULFAMETHOXAZOLE 800 MG-TRIME* Take 1 tablet by mouth twice * CALCIUM 600 + D ORAL Take 1 tablet by mouth twice * METFORMIN 850 MG TABLET Take 850 mg by mouth twice da* PRAVASTATIN 20 MG TABLET Take 20 mg by mouth once ang* GLYBURIDE 5 MG TABLET Take 5 mg by mouth as needed.*Problem List As Of Date 05/18/2018 Noted Resolved RBBB (right bundle branch block) [I45.10] INVALID FOR* Diabetes mellitus type 2 with peripheral artery*INVALID FOR* PAD (peripheral artery disease) (HCC) [I73.9] INVALID FOR* Hyperlipidemia [E78.5] INVALID FOR* Essential hypertension [I10] INVALID FOR*Medications Discontinued During This Encounter lisinopril (ZESTRIL, PRINIVIL) 5 mg * 05/18/2018 Class: Historical Med Route: ORAL Sig: Take 5 mg by mouth once daily. Disc: Discontinued by another Health Care ProviderEncounter Number: [id number] Status:Closed by ROSALEE HEDRICK MD on 05/18/18 Normal [facility] PROGRESSon 05-18-2018 Protein HNO ID: [id number]: Wes SnowdenyService: (none)Author Type: PhysicianType: Progress NotesFiled: 05/18/2018 1:35 PMNote Text:[facility] InstituteMill[facility] Department of Cardiovascular MedicineOUTPATIENT VISIT DATE 05/18/18OUTPATIENT VISIT TYPENEWPRIMARY CARE PHYSICIAN:Jose Garza MD[address] [facility] [address]Ruugr: [phone]: [phone] COMPLAINT:Patient presents with:CARD New Patient ConsultHISTORY OF PRESENT ILLNESS:Karly Chopra is a 62 year old female with a past cardiac history ofessential hypertension, hyperlipidemia, right bundle branch block,peripheral artery disease with mild carotid disease and previousangioplasty in the right lower extremity.05/18/2018 This patient presents today as a consult regarding a preoperativeevaluati on prior to pelvic suspension surgery. The patient had an opinionfrom a business services coordinator in [place] suggesting that she was at moderate riskfor a perioperative cardiac event. They attempted to schedule a nuclearstress evaluation however her insurance coverage refused to cover it. Thestress test was never performed. The patient really once to have hersurgery done but she states the anesthesiologist refuses to do thissurgery without further cardiac evaluation. The patient does havemultiple risk factors for coronary artery disease. She is able to walk4-6 blocks without any chest discomfort or shortness of breath. She isalso able to climb 3 flights of stairs without stopping for chestdiscomfort or excessive shortness of breath. She states that she isactive at home. She denies any previous cardiac history. Herelectrocardiogram revealed a right bundle branch block but no otherevidence of ST or T-wave changes. She denies any palpitations, syncopalor near syncopal episodes. She denies any orthopnea or paroxysmalnocturnal dyspnea. She does get some mild swelling in her ankles at nightwhich usually is resolved by morning. She is obviously frustrated withhealthcare at the moment.PAST MEDICAL HISTORYDiagnosis Date- Diabetes (HCC)- Hyperlipidemia- HypertensionPAST SURGICAL HISTORYProcedure Laterality Date- ANGIOPLASTY Right lower ext Dr. Mullen- ASPIRATION GANGLION CYST- CHOLECYSTECTOMY- HYSTERECTOMYSocial HistorySubstance Use Topics- Smoking status: Former Smoker Packs/day: 0.50 Years: 45.00 Quit date: 02/16/2018- Smokeless tobacco: Never Used- Alcohol use NoFAMILY HISTORYProblem Relation Age of Onset- Heart disease Mother Pacemaker- Heart Attack Father 40ALLERGIES:ALLERGIE SNo Known AllergiesMEDICATIONS :losartan (COZAAR) 50 mg tablet Take 50 mg by mouth once daily.sulfamethoxazo le-trimethoprim (BACTRIM DS,SEPTRA DS) 800-160 mg per tabletTake 1 tablet by mouth twice daily.CALCIUM CARBONATE/VITAMIN D3 (CALCIUM 600 + D ORAL) Take 1 tablet by mouthtwice daily.metFORMIN (GLUCOPHAGE) 850 mg tablet Take 850 mg by mouth twice daily withmeals.pravastati n (PRAVACHOL) 20 mg tablet Take 20 mg by mouth once daily.glyBURIDE (MICRONASE, DIABETA) 5 mg tablet Take 5 mg by mouth as needed.If FSBS is >170REVIEW OF SYSTEMS:A complete review of systems was obtained and is remarkable for that notedabove. The remaining systems are unremarkable.I personally interviewed, confirmed and edited the above information ifobtained by others.PHYSICAL EXAMINATION:BP 156/75 (BP Site: Left Arm, BP Position: Sitting, BP Cuff Size: RegularAdult) Pulse 81 Resp 16 Wt 89.7 kg (197 lb 12.8 oz) SpO2 97% BMI 30.98 kg/m?General: Well appearing, in no acute distress.Eyes: Conjunctiva normal, sclera normalNeck: No jugular venous distention, no palpable thyromegaly.Heart: Regular rhythm, S1, S2 normal, no S3, no S4. No murmur. No carotidbruits.Respir atory: Clear to auscultation bilaterally. Good respiratory effort.GI: Soft, nontender, bowel sounds normal, no palpable hepatosplenomegalyEx tremities: Normal pulses in distal lower extremities. Absent lowerextremity edemaNeuro: Alert, cooperative with no focal deficit.Psych: Pleasant and cooperative.Skin: No rashes or wounds.CARDIOVASCULA R MEDICINE TESTING:A 12-lead electrocardiogram obtained on 11/10/2017 reveals sinus rhythm at70 bpm. There is a right bundle branch block. There are no ST or T-wavechanges noted.A 12-lead electrocardiogram obtained on May 18, 2018 reveals normal sinusrhythm at 76 bpm. There is possible left atrial enlargement and anincomplete right bundle branch block. There are no ST or T-wave changesnoted.I have personally reviewed the above Cardiovascular Medicine Testing.IMPRESSION:1 . Preop cardiovascular exam - ICD9: V72.81, ICD10: Z01.810 (primarydiagnosis), the Link perioperative cardiac risks calculator suggests mandy low risk at 0.14%, the revised cardiac risk index calculator suggestsa very low risk at 0.4%. Using all of the clinical risk factors, lack ofsymptoms and an EKG with only a right bundle branch block, I would suggestthe patient's risk is relatively low at less than or equal to 2%.2. RBBB (right bundle branch block) - ICD9: 426.4, ICD10: I45.103. Diabetes mellitus type 2 with peripheral artery disease (HCC) - ICD9:250.70, 443.81, ICD10: E11.514. PAD (peripheral artery disease) (HCC) - ICD9: 443.9, ICD10: I73.9, mildcarotid disease, status post angioplasty in the lower extremity for PAD.5. Essential hypertension - ICD9: 401.9, ICD10: I106. Hyperlipidemia, unspecified hyperlipidemia type - ICD9: 272.4, ICD10:E78.5PLAN:The patient is at relatively low risk for the planned procedure. I wouldplace her risk at less than or equal to 2%.Continue current medical regimen.Suggest usual precautions during the procedure.The patient is to follow-up with us as needed.A copy of this consultation note will be provided to the requestingphysician by way of shared medical record or to the requesting physicianvia U.S. Mail.This document was generated utilizing [employer]. I have reviewedand verified that the contents of the document are accurate with theexception of minor grammatical, spelling and punctuation errors.CONTACT INFORMATION:Thank you for allowing us to participate in the care of this very pleasantpatient. Please free to contact us if we can be of any furtherassistance.Miller Hedrick MD, [facility] of Cardiovascular MedicineSamaritan Hospitalrt and Vascular InstituteMichael [place] [address] [address], [place] [address]Eozfkd: [phone] [facility] CNOVon 10-09-2017 CNOV Office Visit (VASSFT) --------KARLY CHOPRA ([id number]) [address] [facility] Time Provider Erabicjkip50/27/17 10:00 AM JOHNNY BROOKS During your visit today, we recorded the following information about you: Pulse Respiration Blood pressure 75/minute 16/minute 115/73Dakae Brooks MD 10/09/2017 10:36 AM [facility] Department of Cardiovascular MedicineOUTPATIENT VISIT DATE October 09, 2017OUTPATIENT VISIT TYPEESTABLISHEDPRLAUREL [facility] CARE PHYSICIAN:Jose Garza MD[address] [place] [address]Wnjus: [phone]: [phone] Garza MD[address] [place] [address]LRFGW COMPLAINT:No chief complaint on file.HISTORY OF PRESENT ILLNESS:Karly Chopra was referred for consultation by Dr. Vargas/Greg. Opinionsand recommendations in this consultation will be transmitted back to thereferring physician by Epic notes or via mail.Ms. Chopra is a 62 year old female who presents for follow up today forevaluation of carotid artery stenosis.Underwent DUS carotids, suggestive of mild bilateral carotid artery stenoses,PSV ANDlt;150 bilaterally. POLA/PVRs ANDgt;1 bilaterally with no appreciable drop inwaveforms.Smoker, 1/2-1ppd, 45 years, DM. Hx of right lower extremity intervention w/ Yolanda at [facility] for debilitating claudication.ASA, statin.No Hx CVA/TIA.PAST MEDICAL HISTORYDiagnosis Date- Diabetes (HCC)- Hyperlipidemia- HypertensionPAST SURGICAL HISTORYProcedure Laterality Date- ANGIOPLASTY Right lower ext Dr. Mullen- ASPIRATION GANGLION CYST- CHOLECYSTECTOMY- HYSTERECTOMYSOCIAL HISTORYSocial HistorySubstance Use Topics- Smoking status: Current Every Day Smoker Packs/day: 0.50 Years: 45.00- Smokeless tobacco: Not on file- Alcohol use Not on fileNo family history on file.ALLERGIES:ALLER GIESNo Known AllergiesMEDICATIONS :sulfamethoxazole-tr imethoprim (BACTRIM DS,SEPTRA DS) 800-160 mg per tablet Take1 tablet by mouth twice daily.CALCIUM CARBONATE/VITAMIN D3 (CALCIUM 600 + D ORAL) Take 1 tablet by mouthtwice daily.metFORMIN (GLUCOPHAGE) 850 mg tablet Take 850 mg by mouth twice daily withmeals.lisinopril (ZESTRIL, PRINIVIL) 5 mg tablet Take 5 mg by mouth once daily.pravastatin (PRAVACHOL) 20 mg tablet Take 20 mg by mouth once daily.glyBURIDE (MICRONASE, DIABETA) 5 mg tablet Take 5 mg by mouth as needed. IfFSBS is ANDgt;170REVIEW OF SYSTEMS:GENERAL: no acute distressAll other ROS: negativeI personally interviewed, confirmed and edited the above information asobtained by others.PHYSICAL EXAMINATION:BP 115/73 (BP Site: Right Arm, BP Position: Sitting, BP Cuff Size: RegularAdult) Pulse 75 Resp 16 SpO2 97%General appearance: well nourished, alert and cooperative individual, in noacute distress.Neck: no bruitsPulmonary: mild wheezingCoronary: regular rate and regular rhythmAbdomen: negativeUpper Extremities: palp radial pulsesLower Extremities: palp right AT, palp left PTCARDIOVASCULAR MEDICINE TESTING:I have personally reviewed the DUS carotids, POLA/PVR.IMPRESSION/P IRINA:Ms. Chopra is a 62 year old female with history of lower extremity arterialintervention s, mild carotid artery stenosis, smoker.Strongly encouraged to quit smoking, she will continue to work on this.Continue optimal medical mgt of co morbidities. ASA, statin.Follow up in one year with noninvasive studies.Liam Kilgore Provider: JOSE GARZA [[id number]]Allergies As of Date: 10/09/2017(No Known Allergies)Date Reviewed: 10/09/2017Reviewed by: Johnny Brooks - Fully AssessedPrimary Visit Diagnosis:Carotid stenosis, asymptomatic, bilateral [I65.23] Other Visit Diagnoses:PVD (peripheral vascular disease) ([facility]) [I73.9] Smoker [F17.200]Order(s):PV R LEG [facility] [[id number]] Order #: [id number] FUTURE US CAROTID ARTERIES [facility] [[id number]] Order #: [id number] FUTUREPrescriptions as of 10/09/2017 Sig: SULFAMETHOXAZOLE 800 MG-TRIME* Take 1 tablet by mouth twice * CALCIUM 600 + D ORAL Take 1 tablet by mouth twice * METFORMIN 850 MG TABLET Take 850 mg by mouth twice da* LISINOPRIL 5 MG TABLET Take 5 mg by mouth once daily. PRAVASTATIN 20 MG TABLET Take 20 mg by mouth once ang* GLYBURIDE 5 MG TABLET Take 5 mg by mouth as needed.*Medication notes this encounter SULFAMETHOXAZOLE 800 MG-TRIMETHOPRIM 160 MG TABLET >> Gretchen Hahn RN 10/09/2017 10:00 AM >> GRETCHEN HAHN RN MonOct 09, 2017 10:00 AM Received from: External PharmacyProblem List As Of Date: 10/09/2017(None)Medi cations Discontinued During This Encounter cefUROXime (CEFTIN) 500 mg tablet 09/15/2017 10/09/2017 Class: Historical Med Route: ORAL Sig: Take 500 mg by mouth twice daily. Disc: Reason for discontinue is not on file.Disposition: Return in about 1 year (around 10/09/2018).Follow-u p and Disposition History RecordedEncounter Number: [id number] Status:Closed by JOHNNY BROOKS MD on 10/09/17 [facility] PRO[facility] 10-09-2017 Protein HNO ID: [id number]: Johnnyvandana Sutherland: (none)Author Type: PhysicianType: Progress NotesFiled: 10/09/2017 10:36 AMNote Text:[facility] Department of Cardiovascular MedicineOUTPATIENT VISIT DATE October 09, 2017OUTPATIENT VISIT TYPEESTABLISHEDPRLAUREL [facility] CARE PHYSICIAN:Jose Garza MD[address] [place] [address]Fnhmr: [phone]: [phone] G Checo Garza MD[address] [facility] [address]DIMHX COMPLAINT:No chief complaint on file.HISTORY OF PRESENT ILLNESS:Karly Chopra was referred for consultation by Dr. Vargas/Greg.Opinio ns and recommendations in this consultation will be transmitted backto the referring physician by Epic notes or via mail.Ms. Chopra is a 62 year old female who presents for follow up today forevaluation of carotid artery stenosis.Underwent DUS carotids, suggestive of mild bilateral carotid arterystenoses, PSV <150 bilaterally. POLA/PVRs >1 bilaterally with noappreciable drop in waveforms.Smoker, 1/2-1ppd, 46 years, DM. Hx of right lower extremity interventionw/ Dr Meehan at [facility] for debilitating claudication.ASA, statin.No Hx CVA/TIA.PAST MEDICAL HISTORYDiagnosis Date- Diabetes (HCC)- Hyperlipidemia- HypertensionPAST SURGICAL HISTORYProcedure Laterality Date- ANGIOPLASTY Right lower ext Dr. Mullen- ASPIRATION GANGLION CYST- CHOLECYSTECTOMY- HYSTERECTOMYSOCIAL HISTORYSocial HistorySubstance Use Topics- Smoking status: Current Every Day Smoker Packs/day: 0.50 Years: 45.00- Smokeless tobacco: Not on file- Alcohol use Not on fileNo family history on file.ALLERGIES:ALLER GIESNo Known AllergiesMEDICATIONS :sulfamethoxazole-tr imethoprim (BACTRIM DS,SEPTRA DS) 800-160 mg per tabletTake 1 tablet by mouth twice daily.CALCIUM CARBONATE/VITAMIN D3 (CALCIUM 600 + D ORAL) Take 1 tablet by mouthtwice daily.metFORMIN (GLUCOPHAGE) 850 mg tablet Take 850 mg by mouth twice daily withmeals.lisinopril (ZESTRIL, PRINIVIL) 5 mg tablet Take 5 mg by mouth once daily.pravastatin (PRAVACHOL) 20 mg tablet Take 20 mg by mouth once daily.glyBURIDE (MICRONASE, DIABETA) 5 mg tablet Take 5 mg by mouth as needed.If FSBS is >170REVIEW OF SYSTEMS:GENERAL: no acute distressAll other ROS: negativeI personally interviewed, confirmed and edited the above information asobtained by others.PHYSICAL EXAMINATION:BP 115/73 (BP Site: Right Arm, BP Position: Sitting, BP Cuff Size: RegularAdult) Pulse 75 Resp 16 SpO2 97%General appearance: well nourished, alert and cooperative individual, inno acute distress.Neck: no bruitsPulmonary: mild wheezingCoronary: regular rate and regular rhythmAbdomen: negativeUpper Extremities: palp radial pulsesLower Extremities: palp right AT, palp left PTCARDIOVASCULAR MEDICINE TESTING:I have personally reviewed the DUS carotids, POLA/PVR.IMPRESSION/P IRINA:Ms. Chopra is a 62 year old female with history of lower extremity arterialintervention s, mild carotid artery stenosis, smoker.Strongly encouraged to quit smoking, she will continue to work on this.Continue optimal medical mgt of co morbidities. ASA, statin.Follow up in one year with noninvasive studies.Johnny Brooks MD Normal [facility] SR-US PVR w/ Exercise IMPORT on 09-27-2017 SR-US PVR w/ Exercise IMPORT Images were obtained outside of [facility] [id number] CN Normal [facility] US-US Carotid Duplex Bilater al IMPORTon 09-27-2017 US-US Carotid Duplex Bilateral IMPORT Images were obtained outside of [facility] [id number] CN Normal [facility] CNOVon 09-20-2017 CNOV Office Visit (VASSFT) --------KARLY CHOPRA ([id number]) 1955 FDate Time Provider Bwhpxfmnjm64/8/17 2:00 PM JOHNNY BROOKS During your visit today, we recorded the following information about you: Pulse Respiration Blood pressure Weight 90/minute 16/minute 141/85 83.9 kg Height 1.702 Andra Brooks MD 09/20/2017 2:28 PM [facility] InstituteMill[facility] and [facility] Department of Cardiovascular MedicineOUTPATIENT VISIT DATE September 20, 2017OUTPATIENT VISIT TYPENEWPRIMARY CARE PHYSICIAN:Jose Garza MD[address] [place] [address]Hqwzu: [phone]: [phone] G Lina Choudhury MD[address] [place] [id number] COMPLAINT:No chief complaint on file.HISTORY OF PRESENT ILLNESS:Karly Chopra was referred for consultation by Dr. Vargas/Greg. Opinionsand recommendations in this consultation will be transmitted back to thereferring physician by [facility] notes or via mail.Ms. Chopra is a 62 year old female who was referred today for evaluation ofcarotid artery stenosis.Smoker, 1/2-1ppd, 46 years, DM. Hx of right lower extremity intervention w/ Yolanda at [facility] for debilitating claudication.ASA, statin.No Hx CVA/TIA.PAST MEDICAL HISTORYDiagnosis Date- Diabetes (HCC)- Hyperlipidemia- HypertensionPAST SURGICAL HISTORYProcedure Laterality Date- ANGIOPLASTY Right lower ext Dr. Mullen- ASPIRATION GANGLION CYST- CHOLECYSTECTOMY- HYSTERECTOMYSOCIAL HISTORYSocial HistorySubstance Use Topics- Smoking status: Current Every Day Smoker Packs/day: 0.50 Years: 45.00- Smokeless tobacco: Not on file- Alcohol use Not on fileNo family history on file.ALLERGIES:ALLER GIESNo Known AllergiesMEDICATIONS :CALCIUM CARBONATE/VITAMIN D3 (CALCIUM 600 + D ORAL) Take 1 tablet by mouthtwice daily.metFORMIN (GLUCOPHAGE) 850 mg tablet Take 850 mg by mouth twice daily withmeals.lisinopril (ZESTRIL, PRINIVIL) 5 mg tablet Take 5 mg by mouth once daily.pravastatin (PRAVACHOL) 20 mg tablet Take 20 mg by mouth once daily.glyBURIDE (MICRONASE, DIABETA) 5 mg tablet Take 5 mg by mouth as needed. IfFSBS is ANDgt;170cefUROXime (CEFTIN) 500 mg tablet Take 500 mg by mouth twice daily.REVIEW OF SYSTEMS:GENERAL: no acute distressAll other ROS: negativeI personally interviewed, confirmed and edited the above information asobtained by others.PHYSICAL EXAMINATION:BP 141/85 (BP Site: Right Arm, BP Position: Sitting, BP Cuff Size: RegularAdult) Pulse 90 Resp 16 Ht 170.2 cm (5' 7ANDquot;) Wt 83.9 kg (185 lb) SpO2 96% BMI 28.98 kg/q6Tbeoslc appearance: well nourished, alert and cooperative individual, in noacute distress.Neck: no JVDPulmonary: Lungs clear to auscultation bilaterally.Coronary : regular rate and regular rhythmAbdomen: negativeUpper Extremities: palp radial and brachial pulsesLower Extremities: Feet and toes warmDoppler bilateral AT, PT signalsCARDIOVASCULA R MEDICINE TESTING:There were no tests performed for review.IMPRESSION/PL AN:Ms. Chopra is a 62 year old female with history of DM, smoking, PAD s/pintervention who presents for evaluation for carotid artery stenosis.DUS carotids. POLA/PVR w/ exercise.Continue optimal medical mgt of co-morbidities. Encouraged to quit smoking,referred to smoking cessation clinic, encouraged to engage in regular walkingregimen.Follo w up with test results.EDDIE Kilgoreefdaviding Provider: ROBI CHOUDHURY [[id number]]Allergies As of Date: 09/20/2017(No Known Allergies)Date Reviewed: 09/20/2017Reviewed by: Johnny Brooks - Fully AssessedPrimary Visit Diagnosis:Bilateral carotid bruits [R09.89] Other Visit Diagnoses:PAD (peripheral artery disease) (HCC) [I73.9] Smoker [F17.200] Diabetes mellitus type 2 with peripheral artery disease (HCC) [E11.51]Order(s):US CAROTID ARTERIES [facility] [[id number]] Order #: [id number] FUTURE PVR LEG W/EXC [facility] [[id number]] Order #: [id number] FUTURE CONSULT TO SMOKING CESSATION [[id number]] Order #: [id number]: 1Prescriptions as of 09/20/2017 Sig: CALCIUM 600 + D ORAL Take 1 tablet by mouth twice * METFORMIN 850 MG TABLET Take 850 mg by mouth twice da* LISINOPRIL 5 MG TABLET Take 5 mg by mouth once daily. PRAVASTATIN 20 MG TABLET Take 20 mg by mouth once ang* GLYBURIDE 5 MG TABLET Take 5 mg by mouth as needed.* CEFUROXIME AXETIL 500 MG TABL* Take 500 mg by mouth twice da*Medication notes this encounter CEFUROXIME AXETIL 500 MG TABLET >> Gretchen Hahn RN 09/20/2017 1:56 PM >> GRETCHEN HAHN RN MonSep 20, 2017 1:56 PM Received from: External PharmacyProblem List As Of Date: 09/20/2017(None)Disp osition: Return in about 2 weeks (around 10/04/2017).Follow-u p and Disposition History RecordedEncounter Number: [id number] Status:Closed by JOHNNY BROOKS MD on 09/20/17 Normal [facility] PROGRESSon 09-20-2017 Protein HNO ID: [id number]: Johnny BrooksSer: (none)Author Type: PhysicianType: Progress NotesFiled: 09/20/2017 2:28 PMNote Text:[facility] InstituteMill[facility] Department of Cardiovascular MedicineOUTPATIENT VISIT DATE September 20, 2017OUTPATIENT VISIT TYPENEWPRIMARY CARE PHYSICIAN:Jose Garza MD[address] [place] [address]Omtrs: [phone]: [phone] Choudhury MD[address] [facility] [address] [place] [id number] COMPLAINT:No chief complaint on file.HISTORY OF PRESENT ILLNESS:Karly Chopra was referred for consultation by Dr. Vargas/rGeg.Opinio ns and recommendations in this consultation will be transmitted backto the referring physician by [facility] notes or via mail.Ms. Chopra is a 62 year old female who was referred today for evaluation ofcarotid artery stenosis.Smoker, 1/2-1ppd, 45 years, DM. Hx of right lower extremity interventionw/ Dr Meehan at [facility] for debilitating claudication.ASA, statin.No Hx CVA/TIA.PAST MEDICAL HISTORYDiagnosis Date- Diabetes (HCC)- Hyperlipidemia- HypertensionPAST SURGICAL HISTORYProcedure Laterality Date- ANGIOPLASTY Right lower ext Dr. Mullen- ASPIRATION GANGLION CYST- CHOLECYSTECTOMY- HYSTERECTOMYSOCIAL HISTORYSocial HistorySubstance Use Topics- Smoking status: Current Every Day Smoker Packs/day: 0.50 Years: 45.00- Smokeless tobacco: Not on file- Alcohol use Not on fileNo family history on file.ALLERGIES:ALLER GIESNo Known AllergiesMEDICATIONS :CALCIUM CARBONATE/VITAMIN D3 (CALCIUM 600 + D ORAL) Take 1 tablet by mouthtwice daily.metFORMIN (GLUCOPHAGE) 850 mg tablet Take 850 mg by mouth twice daily withmeals.lisinopril (ZESTRIL, PRINIVIL) 5 mg tablet Take 5 mg by mouth once daily.pravastatin (PRAVACHOL) 20 mg tablet Take 20 mg by mouth once daily.glyBURIDE (MICRONASE, DIABETA) 5 mg tablet Take 5 mg by mouth as needed.If FSBS is >170cefUROXime (CEFTIN) 500 mg tablet Take 500 mg by mouth twice daily.REVIEW OF SYSTEMS:GENERAL: no acute distressAll other ROS: negativeI personally interviewed, confirmed and edited the above information asobtained by others.PHYSICAL EXAMINATION:BP 141/85 (BP Site: Right Arm, BP Position: Sitting, BP Cuff Size: RegularAdult) Pulse 90 Resp 16 Ht 170.2 cm (5' 7 ) Wt 83.9 kg (185 lb) SpO2 96% BMI 28.98 kg/f1Svmvsxq appearance: well nourished, alert and cooperative individual, inno acute distress.Neck: no JVDPulmonary: Lungs clear to auscultation bilaterally.Coronary : regular rate and regular rhythmAbdomen: negativeUpper Extremities: palp radial and brachial pulsesLower Extremities: Feet and toes warmDoppler bilateral AT, PT signalsCARDIOVASCULA R MEDICINE TESTING:There were no tests performed for review.IMPRESSION/PL AN:Ms. Chopra is a 62 year old female with history of DM, smoking, PAD s/pintervention who presents for evaluation for carotid artery stenosis.DUS carotids. POLA/PVR w/ exercise.Continue optimal medical mgt of co-morbidities. Encouraged to quitsmoking, referred to smoking cessation clinic, encouraged to engage inregular walking regimen.Follow up with test results.Johnny Brooks MD Normal [facility] Vital Signs Date Time Vital Sign Value Performing Clinician Facility 02-27-2024 09:42-0400 Blood Pressure Location KORI GOVEA [facility] 02-27-2024 09:42-0400 Body temperature 98.06 [degF] KORI GOVEA [facility] 02-27-2024 09:42-0400 Diastolic blood pressure 77 mm[Hg] [facility] [facility] 02-27-2024 09:42-0400 Heart rate 82 /min KORI GOEVA [facility] 02-27-2024 09:42-0400 Respiratory rate 16 /min KORI GOVEA [facility] 02-27-2024 09:42-0400 Systolic blood pressure 136 mm[Hg] KORI GOVEA [facility] Encounters Encounter Date Encounter Type Care Provider Facility Start: 09-03-2024 ambulatory KORI Toledoi ty:[facility] Start: 05-27-2024 ambulatory Sunni Olivier Facility: [facility] Start: 04-09-2024 ambulatory Isra Gaxiola Facility :[facility] Start: 03-19-2024 End: 03-20-2024 Pre-admission assessment Nate Lomeli [facility] Start: 03-14-2024 End: 03-14-2024 ambulatory PILI KERR Not Available Start: 03-12-2024 End: 03-13-2024 ambulatory Isra Gaxiola Facility:[facility] [place] Start: 03-05-2024 End: 03-06-2024 ambulatory Isra Gaxiola Facility:[facility] [place] Start: 02-27-2024 End: 02-28-2024 [facility]ulatory [facility] Start: 02-27-2024 End: 02-27-2024 Patient encounter procedure KORI GOVEA [facility] Start: 02-20-2024 End: 02-21-2024 ambulatory [place]ra Gaxiola [place] Start: 02-20-2024 End: 02-20-2024 Lab Drop off Isra Gaxiola [facility] Start: 11-29-2023 End: 11-30-2023 ambulatory [facility] Start: 11-21-2023 End: 11-22-2023 ambulatory [facility] Start: 10-30-2023 End: 10-31-2023 ambulatory [facility] Start: 10-23-2023 End: 10-24-2023 ambulatory Isra Gaxiola [place] Start: 10-23-2023 End: 10-23-2023 Lab Drop off Isra Gaxiola [facility] Start: 09-22-2023 End: 09-23-2023 ambulatory Sunni L Soy Facility[place] Start: 09-22-2023 End: 09-22-2023 Patient encounter procedure Sunni L Soy [facility] Start: 09-19-2023 End: 09-20-2023 ambulatory [facility] Start: 08-29-2023 End: 12-29-2023 ambulatory Henry Mcgowan Facility[place] Start: 08-29-2023 End: 12-28-2023 Recurring Henry Mcgowan [facility] Start: 08-22-2023 End: 08-23-2023 ambulatory Isra Gaxiola Facility:[facility] Start: 08-17-2023 End: 08-18-2023 ambulatory Isra Gaxiola Facility[place] Start: 08-11-2023 End: 08-12-2023 ambulatory Henry Mcgowan Facility[place] Start: 08-02-2023 End: 08-03-2023 ambulatory Isra Gaxiola Facility[place] Start: 08-02-2023 End: 08-02-2023 Lab Drop off Isra Gaxiola [facility] Start: 07-19-2023 End: 07-20-2023 ambulatory [facility] Start: 06-26-2023 End: 06-27-2023 ambulatory Isra Gaxiola Facility:[facility] Start: 06-07-2023 ambulatory KORI GOVEA Facility :[facility] Start: 06-07-2023 End: 06-08-2023 ambulatory Elizabeth Duckworth Facility:[facility] Start: 05-30-2023 End: 05-31-2023 ambulatory Isra Gaxiola [place] Start: 05-30-2023 End: 05-30-2023 Lab Drop off Isra Gaxiola [facility] Start: 05-17-2023 End: 05-18-2023 ambulatory Sunni L Soy Facility[place] Start: 05-17-2023 End: 05-17-2023 Lab Drop off Sunni L Soy [facility] Start: 04-24-2023 End: 04-25-2023 ambulatory Isra Gaxiola [place] Start: 03-23-2023 End: 07-14-2023 ambulatory Isra Gaxiola Facility[place] Start: 03-20-2023 End: 03-21-2023 ambulatory [facility] Start: 03-07-2023 End: 03-07-2023 Patient encounter procedure Isra Gaxiola [facility] Start: 02-13-2023 End: 06-19-2023 Recurring Isra Gaxiola [facility] Start: 01-17-2023 End: 01-17-2023 Lab Drop off Isra Gaxiola [facility] Start: 11-01-2022 End: 11-02-[address] JOSE GARZA Facility:[facility] Start: 09-15-2022 End: 09-15-2022 Patient encounter procedure JOSE GARZA [facility] Start: 08-17-2022 End: 08-18-[address] JOSE GARZA Facility:[facility] Start: 04-22-2022 End: 04-30-[address] JOSE GARZA Facility:[facility] Start: 04-18-2022 End: 04-18-[address] JOSE GARZA Facility:[facility] Start: 03-24-2022 End: 03-24-[address] JOSE GARZA Facility:[facility] Start: 01-18-2022 End: 01-19-[address] JOSE GARZA Facility:[facility] Start: 05-18-2018 End: 05-30-2018 Patient encounter WES HEDRICK [facility] Start: 02-06-2018 End: 02-07-2018 Ambulatory DEFAULT PHYSICIAN Facility:[facility] Start: 11-22-2017 End: 11-23-2017 Ambulatory DEFAULT PHYSICIAN Facility:[facility] Start: 10-09-2017 End: 10-10-2017 Patient encounter JOHNNY BROOKS [facility] Start: 09-20-2017 End: 09-21-2017 [facility] Procedures Date Procedure Procedure Detail Performing Clinician Start: 11-13-2018 Colonoscopy Isra wisdom Start: 06-29-2018 Combined anteroposte rior colporrhaphy JOSE GARZA Comment on above: Sacrospinous colosus pension also Start: 06-13-2018 bladder uplift JOSE ARTIS Start: 12-14-2015 Angioplasty of artery S kathi Gaxiola Comment on above: stent placed bypass graft right leg JOSE LUGO Cyst removal right hand JOSE GARZA excision of tumor left leg K IM GARZA Hysterectomy JOSE GARZA Laparoscopic cholecystectomy JOSE GARZA Immunizations Immunization Date Immunization Notes Care Provider Librado reddy 11-21-2023 influenza, injectabl e, quadrivalent, preservative free [facility] 10-31-2022 SARS-CoV-2 (COVID-19 ) mRNAMUL.[id number] Isra Gaxiola [facility] 10-11-2022 influenza virus vaccine, unspecified formulation Isra Gaxiola [facility] 10-19-2021 SARS-CoV-2 (COVID-19 ) mRNA BNT-162b2 vax Isra Gaxiola [facility] 09-10-2021 influenza virus vaccine, unspecified formulation Isra Gaxiola [facility] 02-12-2021 COVID-19, mRNA, LNP- S, PF, 30 mcg/0.3 mL dose JOSE GARZA [facility] Comment on above: Reason for Medicatio n: Prophylaxis 01-22-2021 COVID-19, mRNA, LNP- S, PF, 30 mcg/0.3 mL dose JOSE GARZA [facility] Comment on above: Reason for Medicatio n: Prophylaxis 09-09-2020 influenza virus vaccine, unspecified formulation Isra Gaxiola [facility] 11-15-2019 influenza virus vaccine, unspecified formulation [facility] 09-17-2013 influenza virus vaccine, unspecified formulation Isralevi Gaxiola [facility] NEGATED: Highlighted row has not occurred!09-19-2023 influenza virus vaccine, unspecified formulation Sunni Soy [facility] Payers Date Payer Category Payer Unknown [id number] 2023 Unknown [id number] 1958 Medicaid [id number] 1958 Medicare [id number] 1958 Unknown [id number] 1956 Unknown [id number] 2.16.84 0.1.645276.3.579.2.59 1956 Unknown [id number] 2.16.84 0.1.220528.3.579.2.593 1956 Unknown [id number] 2.16.84 0.1.782298.3.579.2.593 1956 Unknown [id number] 2.16.84 0.1.674409.3.579.2.593 1956 Unknown [id number] 2.16.84 0.1.470999.3.579.2.593 1956 Unknown [id number] 2.16.84 0.1.945440.3.579.2.593 1956 Unknown [id number] 2.16.84 0.1.959333.3.579.2.1259 1956 Unknown [id number] 2.16.8 40.1.168836.3.579.2.72 1956 Unknown [id number] 2.16.8 40.1.977369.3.579.2. 1956 Unknown [id number] 2.16.8 40.1.885004.3.579.2. 1956 Unknown [id number] 2.16.8 40.1.275082.3.579.2. 1956 Unknown [id number] 2.16.8 40.1.259733.3.579.2. 1956 Unknown [id number] 2.16.8 40.1.393532.3.579.2 1956 Unknown [id number] 2.16.8 40.1.004049.3.579.2. 1956 Unknown [id number] 2.16.8 40.1.532562.3.579.2. 1956 Unknown [id number] 2.16.8 40.1.461960.3.579.2 1956 Unknown [id number] 2.16.8 40.1.134946.3.579.2. 1956 Unknown [id number] 2.16.8 40.1.865351.3.579.2. 1956 Unknown [id number] 2.16.8 40.1.859126.3.579.2. 1956 Unknown [id number] 2.16.8 40.1.582789.3.579.2. 1956 Unknown [id number] 2.16.8 40.1.122142.3.579.2. 1956 Unknown [id number] 2.16.8 40.1.690210.3.579.2. 1956 Unknown [id number] 2.16.8 40.1.446268.3.579.2.72 1956 Unknown [id number] 2.16.8 40.1.332479.3.579.2. 1956 Unknown [id number] 2.16.8 40.1.769558.3.579.2. 1956 Unknown [id number] 2.16.8 40.1.058494.3.579.2. 1956 Unknown [id number] 2.16.8 40.1.816707.3.579.2. 1956 Unknown [id number] 2.16.8 40.1.904041.3.579.2 1956 Unknown [id number] 2.16.8 40.1.285954.3.579.2 1956 Unknown [id number] 2.16.8 40.1.445977.3.579.2 1956 Unknown [id number] 2.16.8 40.1.912755.3.579.2 1956 Unknown [id number] 2.16.8 40.1.665702.3.579.2 1956 Unknown [id number] 2.16.8 40.1.980388.3.579.2 1956 Unknown [id number] 2.16.8 40.1.799349.3.579.2 1956 Unknown [id number] 2.16.8 40.1.165498.3.579.2 1956 Unknown [id number] 2.16.8 40.1.925697.3.579.2 1956 Unknown [id number] 2.16.8 40.1.753852.3.579.2 1956 Unknown [id number] 2.16.8 40.1.371561.3.579.2.727 1956 Unknown [id number] 2.16.8 40.1.749277.3.579.2.727 1956 Unknown [id number] 2.16.8 40.1.821364.3.579.2.727 Unknown Social History Date Type Detail Facility Start: 06-15-2018 Tobacco smoking status Never [facility] Comment on above: quit February 12 2018 quit smoking age 63, from age [age] 1 PPD Sex Assigned At Female [facility] Start: 01-17-2023 End: 03-12-2024 Tobacco smoking status Ex-smoker (finding) [facility] Comment on above: quit February 12 2018 quit smoking age 63, from age [age] 1 PPD Functional Status Date Assessment Result Facility 02-27-2024 Functional Status N/A [facility] Clinical Notes 03-24-2022 to 08-22-2023 RadiologyRadiologyLaboratoryRadiologyRadiologyRadiologyRadiologyRadiologyRadiolo gyRadiology Note Date & Type Note Facility 08-22-2023 Note Chief Complaint Referral *Dysuria HPI Staff 68 yo female referred by Dr. Isra Gaxiola for dysuria. Last seen in our office 02/16/22 by ANTHONY due to recurrent UTI, urinary frequency. Pt was to f/u in 1yr. Our office RS'dx2 & Pt RS'd x1 then cancelled. Pt was on Farxiga at time of last encounter in our office, is no longer taking (as recommended) is now taking Ozempic. Was doing well last fall and winter. Then things got bad this Spring: saw PCP 03/20 +nitr/leuk -- tx w macrobid x 7d, fluconazole x1 04/24 neg nit/leuk -- tx fluc x 1 05/17 neg 05/25 no UA -- tx fluc x 1 05/30 cx + E Coli -- keflex x 5d 06/26 +nitr/leuk -- macrobid x 7d, fluc x1 A1C 01/17/23- 13.3% A1C 04/24/23- 12.3% A1C 08/02/23- 12.2% Has been referred to endo due to elevated A1C. History of Present Illness staff HPI reviewed and agree. Review of Systems PHQ Score Initial Depression Screen Score: 0 no fever, chills, malaise, myalgia. no rash/lesions. no chest pain, palpitations, or SOB. no abdominal pain, nausea, vomiting. no unilateral calf swelling, redness, pain Physical Exam Vitals & Measurements HR: 90(Peripheral) RR: 16 BP: 140/89 HT: 67 in HT: 169 cm WT: 82 kg WT: 180.4 lb BMI: 28.71 General: nontoxic, NAD Mouth: moist mucosa Lungs: normal respiratory effort Cardio: regular rate, good distal perfusion Abdomen: nondistended, no suprapubic distention or tenderness, no CVA tenderness Neurologic: Grossly normal Skin: No rashes or suspicious lesions Assessment/Plan 1. Recurrent UTI (N39.0: Urinary tract infection, site not specified) UA today not suspicious for UTI. pt currently asx. PVR at prior OV was 0mL. pt feels like she's emptying fully. we did discuss double void maneuvers to be sure. we discussed connection btwn diabetes and UTIs. improved DM control will definitely help w UTIs and vice versa. has upcoming appt w endo. pt never started OTC UTI preventives after last visit. reiterated their importance today. pt to start probiotics, d-mannose, cranberry supplement. Increase fluids. Aim for at least 2L daily. General bladder health reviewed and pt education provided. Bladder irritant list provided for pt to review. We will check KUB & DAVE to rule out stones as contributing factor to UTIs. Will call pt with results. If shows significant stone burden, pt will need appt to discuss tx options. We will start pt on topical estrogen cream. Reasoning, side effects, risks/benefits discussed. Rx sent to pharmacy. Will start Methenamine 1g BID. Discussed the medication side effects, and the patient will monitor closely for these, as well as for symptom improvement. If severe side effects occur, the medication should be stopped and the office notified. Normal kidney function - 08/17/23 BUN 18 Driller And Reamer 0.7 Pt advised to contact our office w all future UTI sx so we can monitor urine cx results, treat appropriately (may require extended course abx), and monitor frequency of infections. Pt advised if develops fever, severe flank pain, vomiting - needs to go to ER. If continues to get breakthrough UTIs, we will consider cystoscopy w possible UD. 2. Urinary frequency (R35.0: Frequency of micturition) BBSQ 17 but considers bladder control good if sx continue to be bothersome despite lifestyle changes, getting UTIs under control, and getting DM under control then we can consider anticholinergic if pt deems sx bothersome enough to warrant tx Follow up in 6 mos w/KUB & DAVE. All questions/concerns were discussed. Pt to call the office if she encounters any issues prior. Pt acknowledges understanding. Total time spent reviewing previous notes/results/external documents, preparing the chart, conducting the encounter with the patient and family, ordering tests/medications, and documenting the encounter was 40 minutes. Follow-up With When Contact Information KORI GOVEA PA-C, KING In 6 months [address] [place] [address] Additional Instructions: w/DAVE & KUB Patient Education Urinary Tract Infection, Adult, [id number] I, Saba Montero, personally scribed for Kori Govea PA-C on 08/22/2023 11:57:17. . Documentation recorded by the scribeusebia Montero accurately reflects the services(s) I performed and decisions made by me. Authenticated by Kori Govea PA-C on 08/22/2023 12:08:36. Problem List/Past Medical History Ongoing Atherosclerosis of [place] arteries of extremities with intermittent claudication, right leg Cervical radiculopathy Disorder of adrenal gland Dysuria Hypercholesterolemia Lumbar strain Neurologic disorder associated with diabetes mellitus Peripheral vascular disease Recurrent UTI Shoulder pain, right Spinal stenosis of lumbar region Steatosis of liver Type 2 diabetes mellitus with complication Urinary frequency Venous insufficiency of leg Historical Hyperlipemia Hypertension Procedure/Surgical (more content not included)... [facility] Comment on above: Result Comment: Elec tronically Signed By: KORI GOVEA PA-C\.br\Date and Time Signed: 08/22/23 12:10 EDT\.br\Electronically Co-Signed By: Saba Monterobr\Date and Time Co-Signed: 08/22/23 11:57 EDT 03-20-2023 Note This SW received a r eferral due to patient noting she had issues with obtaining food. Patient was seen in the office again today and it was not noted that this was an issue. SW made a tc to patient to discuss and she explained that when she was in the office last month it was she had voiced that it was an issue due to the fact her food stamps and SS had just been cut from the extras that were received during the pandemic. She denies any issues at this time or need for resources. SW will remain available. [facility] 03-24-2022 Note PROCEDURE: XR KNEE R T 4V or > HISTORY: Injury of right knee ; pain after falling COMPARISON: None. FINDINGS: BONES:No fracture, dislocation, bone lesion. Degenerative enthesophytes at the tendon insertions into the patella. SOFT TISSUES:No visible soft tissue swelling. EFFUSION:Small joint effusion. OTHER: Negative. IMPRESSION: 1. Small joint effusion and mild degenerative changes. 2. No acute bone abnormality. Electronically authenticated by: ARTURO LO Date: 2022-03-24 11:03 [facility] 03-24-2022 Note PROCEDURE: XR TOES R T MIN 2 V HISTORY: Pain of toe of right foot COMPARISON: None. FINDINGS: BONES:No fracture, acute abnormality, or significant arthropathy. SOFT TISSUES:No visible soft tissue swelling. EFFUSION:None visible. OTHER: Negative. IMPRESSION: 1. No acute bone abnormality. Mild degenerative changes. Electronically authenticated by: ARTURO LO Date: 2022-03-24 11:01 [facility] Evaluation + Plan note Future Appointments Appointment Date:02/22/2023 09:00:00 AM Scheduled Provider:KORI GOVEA PA-C Location:[facility] Appointment Type:URO Office Visit [facility] Evaluation + Plan note Future Appointments Appointment Date:02/07/2023 02:20:00 PM Scheduled Provider:Isra Gaxiola MD Location:[facility] Appointment Type:FM Open Appointment Date:02/22/2023 09:00:00 AM Scheduled Provider:KORI GOVEA PA-C Location:[facility] Appointment Type:URO Office Visit Diagnostic Tests PendingCBC w/ Auto Diff 01/17/23Comprehensive Metabolic Panel 01/17/23Lipid Panel 01/17/23TSH With T4fr Reflex 01/17/2396JewN6m 01/17/23Vitamin D 25 Hydroxy 01/17/23 [facility] Evaluation + Plan note Future Appointments Appointment Date:03/21/2023 09:00:00 AM Scheduled Provider: [facility] Type:DM Diabetes Group_C Appointment Date:04/03/2023 01:00:00 PM Scheduled Provider: [facility] Type:DM Diabetes Group_B Appointment Date:04/24/2023 11:20:00 AM Scheduled Provider:Isra Gaxiola MD Location:[facility] Appointment Type: Open [facility] Evaluation + Plan note Future Appointments Appointment Date:07/19/2023 02:20:00 PM Scheduled Provider:Isra Gaxiola MD Location:[facility] Appointment Type: Open Appointment Date:05/27/2024 11:00:00 AM Scheduled Provider: Location:[facility] Appointment Type: Medicare Wellness Subsequent Future Scheduled TestsCT Chest, Low Dose Screening 05/17/23MA Mamm Screen w/CAD if perf and 3D Vishal 05/17/23 [facility] Evaluation + Plan note Future Appointments Appointment Date:05/31/2023 05:15:00 PM Scheduled Provider: [facility] App[facility] Type:PT 45 (FT) Appointment Date:06/01/2023 09:15:00 AM Scheduled Provider: [facility] Type:PT 45 (FT) Appointment Date:06/05/2023 08:30:00 AM Scheduled Provider: [facility] Type:PT 45 (FT) Appointment Date:06/06/2023 08:45:00 AM Scheduled Provider: [place] [place] Appointment Type:PT 45 (FT) Appointment Date:06/09/2023 07:30:00 AM Scheduled Provider: Location[facility] [place] Appointment Type:PT 45 (FT) Appointment Date:06/12/2023 01:00:00 PM Scheduled Provider: Location[facility] [place] Appointment Type:PT 45 (FT) Appointment Date:06/13/2023 11:00:00 AM Scheduled Provider: [facility] Type:PT 45 (FT) Appointment Date:06/15/2023 08:30:00 AM Scheduled Provider: [facility] Type:PT Di-Zhang 45 (FT) Appointment Date:07/19/2023 02:20:00 PM Scheduled Provider:Isra Gaxiola MD Location:[facility] Appointment Type: Open Appointment Date:05/27/2024 11:00:00 AM Scheduled Provider: Location:[facility] Appointment Type: Medicare Wellness Subsequent Diagnostic Tests PendingUrine Culture 05/30/23 Future Scheduled TestsCT Chest, Low Dose Screening 05/17/23MA Mamm Screen w/CAD if perf and 3D Vishal 05/17/23 [facility] Evaluation + Plan note Future Appointments Appointment Date:08/08/2023 09:00:00 AM Scheduled Provider:KORI GOVEA PA-C Location:[facility] Appointment Type:URO Office Visit Appointment Date:05/27/2024 11:00:00 AM Scheduled Provider: Location:[facility] Appointment Type: Medicare Wellness Subsequent Future Scheduled TestsComprehensive Metabolic Panel 07/19/23Lipid Panel 07/19/23CT Chest, Low Dose Screening 05/17/23MA Mamm Screen w/CAD if perf and 3D Vishal 05/17/23 [facility] Evaluation + Plan note Future Appointments Appointment Date:09/27/2023 10:30:00 AM Scheduled Provider: [facility] Type:PT 45 (FT) Appointment Date:09/29/2023 08:45:00 AM Scheduled Provider: [facility] Type:PT Re-Zhang 45 (FT) Appointment Date:11/21/2023 07:15:00 AM Scheduled Provider:Isra Gaxiola MD Location:[facility] Appointment Type: Open Appointment Date:02/27/2024 09:00:00 AM Scheduled Provider:KORI GOVEA PA-C Location:[facility] Appointment Type:URO Office Visit Appointment Date:05/27/2024 11:00:00 AM Scheduled Provider: Location:[facility] Appointment Type: Medicare Wellness Subsequent Future Scheduled TestsCT Chest, Low Dose Screening 05/17/23MA Mamm Screen w/CAD if perf and 3D Vishal 09/22/23 [facility] Evaluation + Plan note Future Appointments Appointment Date:10/30/2023 02:00:00 PM Scheduled Provider:[facility] Appointment Date:11/21/2023 07:15:00 AM Scheduled Provider:Isra Gaxiola MD [facility] Appointment Type: Open Appointment Date:02/27/2024 09:00:00 AM Scheduled Provider:KORI GOVEA PA-C [facility] Type[facility]O Office Visit Appointment Date:05/27/2024 11:00:00 AM Scheduled Provider: Location:[facility] Appointment Type: Medicare Wellness Subsequent Diagnostic Tests [id number] 10/23/23 Future Scheduled TestsCT Chest, Low Dose Screening 05/17/23MA Mamm Screen w/CAD if perf and 3D Vishal 09/22/23 [facility] Evaluation + Plan note Future Appointments Appointment Date:02/20/2024 08:00:00 AM Scheduled Provider:Isra Gaxiola MD Location:[facility] Appointment Type: Open Appointment Date:02/27/2024 09:00:00 AM Scheduled Provider:KORI GOVEA PA-C [facility] Type:URO Office Visit Appointment Date:05/27/2024 11:00:00 AM Scheduled Provider: Location:[facility] Appointment Type: Medicare Wellness Subsequent Future Scheduled TestsCT Chest, Low Dose Screening 05/17/23MA Mamm Screen w/CAD if perf and 3D Vishal 09/22/23 [facility] Evaluation + Plan note Future Appointments Appointment Date:02/27/2024 09:00:00 AM Scheduled Provider:KORI GOVEA PA-C [facility] Type:URO Office Visit Appointment Date:03/05/2024 01:00:00 PM Scheduled Provider:Isra Gaxiola MD Location:[facility] Appointment Type: Open Appointment Date:05/27/2024 11:00:00 AM Scheduled Provider: Location:[facility] Appointment Type: Medicare Wellness Subsequent Diagnostic Tests PendingUrine Culture 02/20/24 Future Scheduled TestsCT Chest, Low Dose Screening 23MA Mamm Screen w/CAD if perf and 3D Vishal 09/22/23 [facility] Evaluation + Plan note Future Appointments Appointment Date:03/05/2024 01:00:00 PM Scheduled Provider:Isra Gaxiola MD Location:[facility] Appointment Type: Open Appointment Date:05/27/2024 11:00:00 AM Scheduled Provider: Location:[facility] Appointment Type: Medicare Wellness Subsequent Appointment Date:09/03/2024 11:00:00 AM Scheduled Provider:KORI GOVEA PA-C Location:[facility] Appointment Type:URO Office Visit Future Scheduled TestsCT Chest, Low Dose Screening 723MA Mamm Screen w/CAD if perf and 3D Vishal 09/22/23 [facility] Evaluation + Plan note Future Appointments Appointment Date:04/09/2024 08:45:00 AM Scheduled Provider:Isra Gaxiola MD Location:[facility] Appointment Type: Open Appointment Date:05/27/2024 11:00:00 AM Scheduled Provider: Location:[facility] Appointment Type: Medicare Wellness Subsequent Appointment Date:09/03/2024 11:00:00 AM Scheduled Provider:KORI GOVEA PA-C Location:[facility] Appointment Type:URO Office Visit Future Scheduled TestsCT Chest, Low Dose Screening 723MA Mamm Screen w/CAD if perf and 3D Vishal 09/22/23 [facility] course Narrative No data available for this section [facility] Discharge instructions No data available for this section [facility] Progress note No data available for this section [facility] Summary Purpose Family History No Family History Records FoundNo Family History Records FoundNo Family History Records Found No data available for this section No data available for this section No data available for this section No data available for this section No data available for this section No Family History Records FoundNo Family History Records Found No data available for this section Advance Directives No Advanced Directives Records FoundNo Advanced Directives Records FoundNo Advanced Directives Records FoundNo Advanced Directives Records FoundNo Advanced Directives Records Found Additional Source Comments INFORMATION SOURCE (unrecogn ized section and content) DATE CREATED AUTHOR 05/04/2018 [facility] DATE CREATED AUTHOR AUTHOR'S ORGANIZ ATION 06/01/2018 [facility] DATE CREATED AUTHOR AUTHOR'S ORGANIZ ATION 11/09/2022 [facility] DATE CREATED AUTHOR AUTHOR'S ORGANIZ ATION 03/16/2024 [facility] EPIC DATE CREATED AUTHOR AUTHOR'S ORGANIZ ATION 03/19/2024 Evan Norton [facility] Patient Care team informatio n (unrecognized section and content) Personnel Name: JOSE GARZA MD Address: Address: [address] [place] [address] Personnel Name: JOSE GARZA MD Address: Address: [address] [place] [address] Personnel Name: Isra Gaxiola MD Address: Address: [facility] [address] Personnel Name: Isra Gaxiola MD Address: Address: [address] [place] [address] Personnel Name: Isra Gaxiola MD Address: Address: [facility] [address] Personnel Name: Isra Gaxiola MD Address: Address: [address] [place] [address] Personnel Name: Isra Gaxiola MD Address: Address: [facility] [address] Personnel Name: Isra Gaxiola MD Address: Address: [facility] [address] Personnel Name: Isra Gaxiola MD Address: Address: [address] [place] [address] Personnel Name: Isra Gaxiola MD Address: Address: [facility] Personnel Name: Isra Gaxiola MD Address: Address: [facility] [address] Personnel Name: Isra Gaxiola MD Address: Address: [address] Personnel Name: Minor THOMAS Isra E. Address: Address[facility] [place] [address]- FOR RECORDS PERTAINING TO PATIENTS WHO ARE OR HAVE BEEN ENROLLED IN A CHEMICAL DEPENDENCY/SUBSTANCEABUSE PROGRAM, SOME INFORMATION MAY BE OMITTED. This clinical summary was aggregated from multiple sources. Caution should be exercised in using it in the provision of clinical care. This summary normalizes information from multiple sources, and as a consequence, information in this document may materially change the coding, format and clinical context of patient data. In addition, data may be omitted in some cases. CLINICAL DECISIONS SHOULD BE BASED ON THE PRIMARY CLINICAL RECORDS. [facility] [employer] provides no warranty or guarantee of the accuracy or completeness of information in this document.
[2024-04-01 11:01] LABS: Creatinine Urine Random 79.06 mg/dL (20.00-300.00); Microalbum Creatinine Ratio Ur 118.8 mg/g (0.0-29.9); Microalbumin Urine Random 9.4 mg/dL (<=30.0)
[2024-04-01 11:02] LABS: Albumin Level 3.5 g/dL (3.4-5.0); BUN Creatinine Ratio 23.9; Calcium 9.1 mg/dL (8.5-10.1); Carbon Dioxide 26.1 mmol/L (21.0-32.0); Chloride 102 mmol/L (98-107); Chol HDL Ratio 3.2; Cholesterol 171 mg/dL (<=200); Estimated GFR (African America >60 (>=60); Estimated GFR (Non-African Ame >60 (>=60); Glucose 275 mg/dL (74-106); HDL Cholesterol 53 mg/dL (40-60); LDL Cholesterol Calculated 93.4 mg/dL; Phosphorus 3.1 mg/dL (2.6-4.7); Potassium 4.1 mmol/L (3.5-5.1); Sodium 137 mmol/L (136-145); Triglycerides 123 mg/dL (<=150); VLDL CHOLESTEROL 24.6 mg/dL
[2024-04-02 13:12] LABS: C-Peptide, Serum 2.6 ng/mL (1.1-4.4)
== END 2024-04-01 09:57 | disposition home or self-care (01) ==
LOC: LAB 10:01
PROVIDERS: PCP Family Medicine; Visit Provider Internal Medicine
DX: E11.8 Type 2 diabetes mellitus with unspecified complications (principal); Z71.3 Dietary counseling and surveillance; E78.2 Mixed hyperlipidemia; I10 Essential (primary) hypertension
CPT/HCPCS: 36415; 80061; 80069; 82043; 82306; 82570; 84681

== ENCOUNTER 2025-04-22 14:26 | Outpatient (RCR) | payer MEDICARE, SELFPAY | END 2025-04-23 12:16 | disposition home or self-care (01) | LOC: CR 14:26 | PROVIDERS: PCP Family Medicine; Visit Provider Student in an Organized Health Care Education/Training Program | DX: I70.213 Atherosclerosis of native arteries of extremities with intermittent claudication, bilateral legs (principal) | CPT/HCPCS: 93668; 93798 ==